=== PATIENT | male | born 1945 | race Caucasian/White ===

== ENCOUNTER 2023-04-04 20:52 | Inpatient (IN) | payer MEDICARE, OTHER, SELFPAY ==
[2023-04-04] VITALS (9 sets, daily range): BP systolic 105–134; BP diastolic 55–84; BMI 29.6; BMI 28.6
[2023-04-04 18:12] LABS: % Basophils 0.3 % (0-2); % Eosinophils 2.3 % (0-6); % Immature Granulocytes 0.2 % (0-0.5); % Lymphocytes 24.5 % (20.5-51.1); % Monocytes 9.3 % (1.7-9.3); % Neutrophils 63.4 % (42.2-75.2); Absolute Eosinophils 0.2 10^3/uL (0-0.7); Absolute Lymphocytes 2.6 10^3/uL (1.2-3.4); Absolute Neutrophils 6.6 10^3/uL (1.4-6.5); Hematocrit 37.9 % (39.0-52.0); Hemoglobin 12.8 g/dL (13.0-18.0); Mean Corp Hgb Conc. 33.8 g/dL (33.0-37.0); Mean Corpuscular Volume 88.8 fL (80.0-94.0); Mean Platelet Volume 10.4 fL (7.4-10.4); Nucleated Red Blood Cells % 0 % (-); Platelet Count 309 10^3/uL (130-400); Red Blood Cell Count 4.27 10^6/uL (4.70-6.10); Red Cell Dist. Width 14.5 % (11.5-14.5); White Blood Cell Count 10.4 10^3/uL (4.8-10.8)
[2023-04-04 18:17] LABS: ALT (SGPT) 18 U/L (0-50); AST (SGOT) 31 U/L (17-59); Albumin 4.1 g/dl (3.5-5.0); Alkaline Phosphatase 95 U/L (38-126); Blood Urea Nitrogen 25 mg/dl (9-20); Calcium 9.5 mg/dl (8.4-10.2); Carbon Dioxide 29 mmol/L (22-30); Chloride 102 mmol/L (98-107); Estimated Creatinine Clearance 53 ml/min; Glucose 81 mg/dl (70-99); Potassium 4.1 mmol/L (3.5-5.1); Sodium 137 mmol/L (135-145); Total Protein 6.7 g/dl (6.3-8.2); eGFR > 60.00
[2023-04-04 18:29] LABS: NT-proBNP 2190 pg/ml; Troponin I 0.484 ng/ml
--- NOTE | 2023-04-04 18:52 | ED.GENMED ---
History of Present Illness
General
Chief Complaint: Breathing Problem
Source: patient and family
Exam Limitations: none
Time Seen by Provider: 04/04/23 18:01
Travel History
Have you had any contact with someone who has COVID-19?: No
Do you have any symptoms of coronavirus? Fever > 100 degrees, chills, cough, shortness of breath, sore throat, loss of taste or smell, muscle aches, or headache?: Yes
Symptoms:: sob
History of Present Illness
History of Present Illness:
77-year-old male shortness of breath started about 4 AM. No chest pain no diaphoresis. Mild but persistent throughout the day.
Past History
Past History
ED Past Medical History: CAD, GERD, HTN, Hypercholesterolemia, NIDDM, UT, Psychiatric (Depression) and Other (chronic pain, diabetic peripheral neuropathy, peripheral arterial disease)
ED Past Surgical History: Cardiac (CABG 2010, aortic valve replacement 2015, cardiac stenting 2018), Tonsilectomy and Other (Xiphoid removal, right lower extremity arteriogram with bypass 2019)
Social History
Tobacco: Former smoker
Alcohol: None
Personal:
Living: with family
Family History
Family History: Other (Reviewed and noncontributory)
Review of Systems
Review of Systems
All Other Systems: Not applicable
Constitutional: Denies fever
Cardiac: Denies chest pain or syncope
Phy Exam
Physical Exam
Physical Exam:
GENERAL: Alert and oriented in no apparent distress
EYE: Orbits normal.
NECK: Supple
CARDIAC: Regular rate and rhythm without any obvious murmurs.
LUNGS: No respiratory distress at rest. Pulse ox great. However mild bibasilar Rales
ABDOMEN: Soft, without focal tenderness or distention
NEUROLOGICAL: Alert and oriented , grossly non-focal
SKIN: Warm and dry, no rash or lesion, no discoloration, skin intact.
MUSCULOSKELETAL: Minimal bilateral pitting edema
Scores
Heart Failure Risk
Heart Failure Risk Score: Yes
History of Stroke or TIA: No
History of intubation for respiratory distress: Yes
Heart rate on ED arrival >/= 110: No
SaO2 <90% on arrival on room air: No
HR >/=110 during 3min walk test (or too ill to perform test): Yes
ECG has acute ischemic changes: Yes
Urea >/=12mmol/L (BUN 33.6mg/dL): No
Serum CO2>/=35mmol/L: No
Troponin I or T elevated to UT Level (0.4mg/dL): Yes
NT-proBNP >/=5,000ng/L (5,000pg/ml): No
HF Risk Score: 8
Admission Status: VERY HIGH RISK 81.2% Consider admission to hospital
Course
Orders/Labs/Results
Orders:
Orders
04/04/23 14:30
Electrocardiogram (*1) Urgent
Reason for Study: Shortness of Breath
EKG- Treatment ONCE
04/04/23 17:59
CMP [Comprehensive Metabolic Panel] Urgent
Complete Blood Count/With Diff Urgent
NT-proBNP Urgent
Troponin I Urgent
04/04/23 18:08
CXR2 [CR Chest - 2 Views ] Urgent
Comment:
Reason For Exam: sob
04/04/23 19:12
Furosemide [Lasix] 40 mg IV NOW STA
04/04/23 19:32
Troponin I Urgent
Abnormal Lab Results
04/04/23
17:59
RBC 4.27 L 10^6/uL
(4.70-6.10)
Hgb 12.8 L g/dL
(13.0-18.0)
Hct 37.9 L %
(39.0-52.0)
Absolute Neuts (auto) 6.6 H 10^3/uL
(1.4-6.5)
Absolute Monos (auto) 1.0 H 10^3/uL
(0.1-0.6)
BUN 25 H mg/dl
(9-20)
Troponin I 0.484 H* ng/ml
04/04/23 17:59
04/04/23 17:59
Vital Signs
Initial and Last Documented VS:
Initial Vital Signs
Temp Pulse Resp BP Pulse Ox
98.0 F 91 18 106/55 100
04/04/23 14:31 04/04/23 14:31 04/04/23 14:31 04/04/23 14:31 04/04/23 14:31
Last Documented Vital Signs
Temp Pulse Resp BP Pulse Ox
98.0 F 83 22 116/62 99
04/04/23 14:31 04/04/23 19:00 04/04/23 19:00 04/04/23 19:00 04/04/23 19:00
*EKG
Interpreted by ED Provider?: Yes
Interpretation: abnormal
Comparison EKG: changes noted
Heart Rate: 76
Rate: normal
Rhythm: sinus and PVC's
[place]: normal axis
Interval: normal interval
QRS Pattern: left vent hypertrophy
Ischemia: non-specific ST changes
*[employer]ologist Interpretation
Rate: normal
Interpretation: normal
Heart Rate: 80
*Critical Care Note
Total Time (30-74mins, 75-104mins- exclusive of procedures): Not Applicable
Data Reviewed
Review of Other/Old Records Reveals: Labs, Records, Radiology Studies, Operative Reports and Discharge Summary
Update Note
Update Note:
Patient with a non-STEMI UT by troponin. EKG with some nonspecific changes. Mild CHF. Diuretics trending troponin admission. All reviewed with cardiology. To consider heparinization if troponins trend up.
ED Attending Note
-
Portions of this chart may have been created with voice recognition software.� Occasional wrong word or��sound alike� substitutions may have occurred due to the inherent limitations of voice recognition software.
Discharge Plan
Departure
Patient Disposition: Admit
Date of Disposition: 04/04/23
Time of Disposition: 19:19
Presentation/result/management discussed w/ accepting MD/DO: Cardiology
Discharge Problem:
CHF/non-STEMI UT, HISTORY CARDIAC STEnting
Prescriptions:
No Action
insulin lispro [Humalog U-100 Insulin] 100 UNIT/ML solution
15 unit SC AC
multivitamin 1 EACH tablet
1 ea PO DAILY
duloxetine 60 MG capsule,delayed release(DR/EC)
60 mg PO DAILY
oxycodone 10 MG tablet
10 mg PO QID
insulin glargine [Lantus Solostar U-100 Insulin] 300 UNITS/3 ML insulin pen
35 units SC HS
atorvastatin 80 mg tablet
80 mg PO QPM
aspirin 81 mg Tablet,Delayed Release (Dr/Ec)
81 mg PO DAILY
metformin 1,000 MG tablet
1,000 mg PO BID@0800,1700 Qty: 1 0RF
nitroglycerin 0.4 mg Tablet, Sublingual
0.4 mg sublingual [id number] PRN (Reason: chest pain) Qty: 30 0RF
furosemide 40 mg Tablet
40 mg PO DAILY Qty: 30 0RF
dapagliflozin propanediol [Farxiga] 10 mg Tablet
10 mg PO DAILY Qty: 30 0RF
losartan 50 mg Tablet
50 mg PO DAILY
clopidogrel [Plavix] 75 mg Tablet
75 mg PO DAILY
carvedilol [Coreg] 3.125 mg Tablet
3.125 mg PO BID
cimetidine 200 mg Tablet
200 mg PO HS
PreserVision AREDS 2,148 mcg-113 mg-45 mg-17.4mg Tablet
1 tab PO BID
Referrals:
Santos Weinberg MD [Family Provider] -
Interventions
Interventions:
*Risk Screen - Suicide Last Done: 04/04/23 18:00
*General Assessment Last Done: 04/04/23 18:00
*Neglect/Abuse Screening Last Done: 04/04/23 18:00
ED- Fall Risk Assessment Last Done: 04/04/23 18:00
*ED COVID-19 Vaccine History Last Done: 04/04/23 14:31
ED- Cardiac Assessment Last Done: 04/04/23 18:00
ED- Pulmonary Assessment Last Done: 04/04/23 18:00
[2023-04-04] MEDS: LASIX 40 MG IV (19:20)
--- NOTE | 2023-04-04 19:53 | HPS.HSE ---
Family Physician
-
Family Physician: Santos Weinberg
Chief Complaint
-
SOB
History of Present Illness
Patient is a 77y M with PMH significant for ASCVD, CHF / cardiomyopathy, DM-II and aortic stenosis who presents to ED complaining of SOB. Patient states that he woke this AM around 4-5 AM with SOB. He reports difficulty taking a deep breath.
He reports left sided chest pressure and chest heaviness / tightness. Patient states that his symptoms have persisted throughout the day, ultimately prompting him to present to the ED for further evaluation.
Patient denies any headache, diaphoresis, N/V, etc. He reports audible wheezing.
Patient notes that current symptoms are different form his angina with prior AL(s).
Patient does not that he was started on 3 new medications a few days ago (Coreg, Tagamet and losartan).
Patient states that he weighs himself daily at home and his weight has not changed.
He denies significant cough, mucus production, sick contacts.
Medical History
Past Medical History
Past Medical History: Reports Other
Additional Past Medical History:
ASCVD (CAD, PAD, Carotid Disease)
Aortic Stenosis
Chronic HFrEF
DM-II with Neuropathy
Hypertension
Chronic Pain Syndrome
Past Surgical History: Reports Other
Additional Past Surgical History:
CABG
PTCA with Stent (multiple)
Bio AVR
RLE Angio / Bypass
Right CEA
T&A
Social History
Tobacco: Former Smoker (Quit smoking in 1979.)
Alcohol: None
Drug: None
Family History
Family History: Not pertinent
Allergies / Home Medications
Allergies reflects when Allergies were last updated in [facility].
Home Medications with original date entered in [employer]
Allergy/Medication List:
Allergies
Allergy/AdvReac Type Severity Reaction Status Date / Time
lisinopril Allergy cough Verified 02/27/23 13:08
Home Medications
insulin lispro 100 unit/mL subcutaneous solution (Humalog U-100 Insulin) 15 unit SC AC Diabetes 09/24/15
multivitamin 1 ea PO DAILY Supplement 11/19/17
duloxetine 60 mg capsule,delayed release 60 mg PO DAILY Mental Health/Anxiety 10/12/19
insulin glargine 100 unit/mL (3 mL) subcutaneous pen (Lantus Solostar U-100 Insulin) 35 units SC HS Diabetes 10/12/19
oxycodone 10 mg tablet 10 mg PO QID 10/12/19
aspirin 81 mg tablet,delayed release 81 mg PO DAILY Blood clot prevention/tx 01/20/22
atorvastatin 80 mg tablet 80 mg PO QPM High cholesterol 01/20/22
metformin 1,000 mg tablet 1,000 mg PO BID@0800,1700 Diabetes #1 tab 05/16/22
nitroglycerin 0.4 mg sublingual tablet 0.4 mg sublingual [id number] PRN chest pain #30 tabs 10/16/22
dapagliflozin propanediol 10 mg tablet (Farxiga) 10 mg PO DAILY #30 tabs 11/30/22
furosemide 40 mg tablet 40 mg PO DAILY #30 tabs 11/30/22
carvedilol 3.125 mg tablet (Coreg) 3.125 mg PO BID 04/04/23
cimetidine 200 mg tablet 200 mg PO HS 04/04/23
clopidogrel 75 mg tablet (Plavix) 75 mg PO DAILY 04/04/23
losartan 50 mg tablet 50 mg PO DAILY 04/04/23
vitamins A,C,S-fywk-jbqhiq 2,148 mcg-113 mg-45 mg-17.4 mg tablet (PreserVision AREDS) 1 tab PO BID 04/04/23
Review of Systems
-
History Source: Patient
A 12 point ROS was completed and negative except as noted: Yes
Constitutional: Denies Fever or Chills
EENT: Denies Sore Throat
Respiratory: Reports Trouble Breathing; Denies Cough or Hemoptysis
Cardiac: Reports Chest Pain; Denies Diaphoresis, Palpitations or Syncope
Abdomen/GI: Denies Abdominal Pain, Nausea, Vomiting or Diarrhea
: Denies Dysuria or Frequency
Musculoskeletal: Denies Joint Pain or Edema
Neurological: Denies Dizzy or Headache
Psych: Denies Depression or Anxiety
Physical Exam
Vital Signs
Vital Signs
Temp Pulse Resp BP Pulse Ox
98.0 F 83 22 116/62 99
04/04/23 14:31 04/04/23 19:00 04/04/23 19:00 04/04/23 19:00 04/04/23 19:00
Physical Exam
General: Other (77y M in no acute distress.)
HEENT: Moist mucous membranes and Other (No JVD / HJR)
Respiratory: Other (Bibasilar rales about 1/3 up.)
Cardiac: S1/S2, Tachycardia and Murmur (II/ ANTHONY)
GI: Soft, Non Tender, Non Distended and Normal Bowel Sounds
Musculoskeletal: No Clubbing, No Cyanosis and No Edema
Neuro: AO x 3
Laboratory Results
-
04/04/23 17:59
04/04/23 17:59
Laboratory Results
Total Bilirubin 1.0 mg/dl (0.2-1.3) 04/04/23 17:59
AST 31 U/L (17-59) 04/04/23 17:59
ALT 18 U/L (0-50) 04/04/23 17:59
Alkaline Phosphatase 95 U/L (38-126) 04/04/23 17:59
Troponin I 0.484 ng/ml H* 04/04/23 17:59
Impression/Plan
-
A/P: Patient is a 77y M with PMH significant for ASCVD, CHF and DM-II who presents to ED complainiing of SOB since early this AM.
Acute on Chronic HFrEF
Aortic Stenosis s/p AVR
- Admit for further evaluation and treatment.
- Patient with dyspnea, elevated BNP from prior and rales evident on exam c/w pulm edema / CHF.
- No significant changes in weight at home.
- Patient is not hypoxemic nor significantly hypertensive.
- IV Lasix BID and follow weight, I/Os, clinical course.
- Monitor for any new / worsening symptoms.
- Echo done last 11/2022 with LVEF = 25-30%.
- Cardiology evaluation.
ACS
ASCVD
- Significant vasculopathic history with CABG, stents, CEA, etc.
- Patient does complain of chest pressure / heaviness today - though not similar to prior angina.
- EKG with chronic LBBB, but ST changes in anterior leads appear progressed from prior.
- Continue beta-blockade, statin, DAPT, etc.
- IV Heparin for now and follow symptoms, troponin, etc.
- Cardiology evaluation as noted above.
- Cath done last in 11/2022 with multiple areas of concern, but limited potential for additional intervention.
Benign Hypertension
- Hold newly added losartan given lower BP / need for diuresis.
- Adjust med regimen as needed for adequate control.
DM-II
- Stable. Continue basal insulin at decreased dose while NPO.
- SSI coverage as needed.
- Update A1C.
- Hold metformin acutely. Continue Farxiga.
Chronic Pain Syndrome
- Stable. Continue oxycodone, but change to PRN use.
- Continue duloxetine.
DVT Prophylaxis: On therapeutic heparin at present.
Code Status: Full
[2023-04-04] MEDS: HEPARIN 4000 UNITS IV (20:03)
[2023-04-04 20:30] LABS: Troponin I 0.434 ng/ml
[2023-04-04] MEDS: HEPARIN 25000 UNITS/250 ML IV (21:19)
[2023-04-04 21:55] LABS: Glucose - Point of Care 87 mg/dl (70-99)
[2023-04-04 22:55] LABS: Glucose - Point of Care 138 mg/dl (70-99)
[2023-04-04] MEDS: LANTUS 0.200000000000000011 UNITS SC (22:57)
[2023-04-04] MEDS: TOPROL XL 12.5 MG PO (22:57)
[2023-04-04] MEDS: ROXICODONE 10 MG PO (23:03)
[2023-04-04] MEDS: PHATP 1 UNIT PO (23:03)
[2023-04-05] VITALS (9 sets, daily range): BP systolic 108–144; BP diastolic 57–74; BMI 28.6
--- NOTE | 2023-04-05 00:48 | PTCARENOTE ---
Rec'd pt. into room 2244 from ED AAOx3, VSS, NSR on the monitor. Gait unsteady, generalized weakness assessed, fall precautions initiated. Pt. slightly MORRIS; crackles present right lung base, RA pulse ox 98%. Pt. denies CP, states sensation is
more of heaviness/SOB. Using urinal without difficulty post Lasix. Heparin gtt infusing as ordered. Medicated for bilateral lower leg/foot pain (chronic per pt.; neuropathy) with oxycodone. Pt. currently sleeping.
[2023-04-05 03:54] LABS: APTT 51.8 Sec (23.4-35.0)
[2023-04-05 04:07] LABS: Blood Urea Nitrogen 29 mg/dl (9-20); Calcium 9.7 mg/dl (8.4-10.2); Carbon Dioxide 28 mmol/L (22-30); Chloride 99 mmol/L (98-107); Estimated Creatinine Clearance 49 ml/min; Glucose 144 mg/dl (70-99); HDL Cholesterol 35 mg/dl; LDL Cholesterol, Calculated 60 mg/dl; Potassium 3.8 mmol/L (3.5-5.1); Sodium 139 mmol/L (135-145); Total Cholesterol 123 mg/dl (50-199); Triglyceride 144 mg/dl (10-149); Very Low Density Lipoprotein 28 mg/dl (0-30); eGFR 56.58
[2023-04-05 04:19] LABS: Troponin I 0.396 ng/ml
[2023-04-05 06:54] LABS: Glucose - Point of Care 121 mg/dl (70-99)
[2023-04-05] MEDS: ASPIR LOW (ENTERIC COATED) 81 MG PO (07:52)
[2023-04-05] MEDS: LASIX 40 MG IV ×2 (07:52→15:27)
[2023-04-05] MEDS: CYMBALTA DELAYED RELEASE 60 MG PO (07:52)
[2023-04-05] MEDS: PLAVIX 75 MG PO (07:52)
[2023-04-05] MEDS: TOPROL XL 12.5 MG PO (07:52)
[2023-04-05] MEDS: FARXIGA 10 MG PO (07:53)
[2023-04-05] MEDS: ROXICODONE 10 MG PO ×2 (08:03→15:21)
--- NOTE | 2023-04-05 08:04 | PTCARENOTE ---
patient c/o bilat. leg and neck pain, chronic for patient. Roxicodone po given as ordered.
--- NOTE | 2023-04-05 09:09 | W.PN.HOSP.TC ---
Addendum entered and electronically signed by Serjio Diaz DO 04/05/23 13:02:
Plan for right and left heart catheterization on Thursday. Discussed with Dr. Roland.
Original Note:
Today's Communication/Plan
-
Resume diet
N.p.o. after midnight
Assessment / Plan
Assessment / Plan
Gen-AAOx3, NAD
HEENT-NC, AT, anicteric, clear oral mm
Neck-supple
CV-reg, no M, +S1/S2
Lungs-clear B/L
Abd-soft, NT, ND
Ext-no edema
Musculoskeletal-no cyanosis, clubbing
Skin-warm and dry
Neuro-grossly non-focal
Psych-calm, cooperative
Acute on chronic heart failure reduced EF -continue IV Lasix. BNP 0. Chest x-ray with tiny bilateral pleural effusions. Moderate right hemidiaphragm elevation. Shortness of breath improving.
ACS/CAD/CABG - apparently patient stopped Brilinta on his own for unclear reasons. Plavix started March 30 by cardiology.
Continue IV heparin, cannot rule out NSTEMI. Troponin has peaked. Discussed with Dr. Roland.
Aortic stenosis/bioprosthetic AVR
Essential hypertension -stable.
DM2 without hyperglycemia -hemoglobin A1c 6.9% in February. Hold metformin for upcoming catheterization. Glucose 144 this morning. Received Lantus 20 units last night. Continue NovoLog scale, reduce to low resistance.
Hyperlipidemia -continue atorvastatin.
PAD -history of right lower extremity revascularization.
Chronic opioid dependence/chronic pain syndrome
Full code
Anticipated Discharge: > 48 hours
Subjective/Interval History
-
Date of Service: April 05, 2023
Patient seen and examined. Shortness of breath is improving. No complaints.
Objective Data
-
Labs:
Laboratory Results
04/04/23 04/05/2304/05/24
21:33 03:08 10:15
WBC Cancelled
Hgb Cancelled
Hct Cancelled
Plt Count Cancelled
APTT Cancelled 51.8 H Pending
Sodium 139
Potassium 3.8
Chloride 99
Carbon Dioxide 28
BUN 29 H
Creatinine 1.3
Glucose 144 H
Calcium 9.7
Vital Signs:
Vital Signs
Temp Pulse Resp BP Pulse Ox
97.3 F 82 20 123/74 98
04/05/23 07:55 04/05/23 07:52 04/05/23 07:55 04/05/23 07:55 04/05/23 07:55
I&O
04/04/23 04/05/23 04/06/23
06:59 06:59 06:59
Intake Total 480 / 480
Output Total 1000 / 1000
Balance -520 / -520
Review of Systems
-
History Source: Patient
All other systems: Reviewed and negative
--- NOTE | 2023-04-05 09:27 | CON.CAR ---
Addendum entered and electronically signed by Sky Roland MD 04/05/23 09:52:
Addendum for HPI:
77 y/o male with CAD s/p CABG (WEBB to LAD, Sequential SVG to OM1 --> OM2 --> RPDA) 2010, with subsequent PCI of the ostial SVG, complicated by ISR requiring repeat PCI, then PTCA 11/2022, ICM EF 25%, chronic systolic HF, severe s/p bioprosthetic
AVR 2016, HTN, HLD, PAD, IDDM admitted with SOB and chest tightness.
New symptoms over the weekend. Also with some edema. He presented to ED and was admitted with concern for heart failure and ACS.
Original Note:
Consultation
Consultation Request
Date/Time Consultation Requested: 04/04/23, 7pm
Date/Time Consultation Performed: 04/05/23, 8am
Requesting Provider: Justo
Performing Provider: Luan
Reason for Consultation: SOB, chest tightness, elevated troponin
Medical History
Past Medical History
Past Medical History: CAD, CHF (chronic systolic), HTN, Hypercholesterolemia, IDDM, [place] and Valvular Disease (aortic stenosis)
Past Surgical History: Cardiac (CABG, bio-AVR)
Social History
Tobacco: Non-Smoker
Family History
Family History: Early CAD (none)
Allergies / Home Medications
Allergy/AdvReac Type Severity Reaction Status Date / Time
lisinopril Allergy cough Verified 02/27/23 13:08
Medication Instructions Recorded Confirmed Type
insulin lispro 100 unit/mL 15 unit SC AC Diabetes 09/24/15 04/04/23 History
subcutaneous solution (Humalog
U-100 Insulin)
multivitamin 1 ea PO DAILY Supplement 11/19/17 04/04/23 History
duloxetine 60 mg capsule,delayed 60 mg PO DAILY Mental 10/12/19 04/04/23 History
release Health/Anxiety
insulin glargine 100 unit/mL (3 35 units SC HS Diabetes 10/12/19 04/04/23 History
mL) subcutaneous pen (Lantus
Solostar U-100 Insulin)
oxycodone 10 mg tablet 10 mg PO QID 10/12/19 04/04/23 History
aspirin 81 mg tablet,delayed 81 mg PO DAILY Blood clot 01/20/22 04/04/23 History
release prevention/tx
atorvastatin 80 mg tablet 80 mg PO QPM High cholesterol 01/20/22 04/04/23 History
metformin 1,000 mg tablet 1,000 mg PO BID@0800,1700 Diabetes 05/16/22 04/04/23 Rx
#1 tab
nitroglycerin 0.4 mg sublingual 0.4 mg sublingual [id number] PRN 10/16/22 04/04/23 Rx
tablet chest pain #30 tabs
dapagliflozin propanediol 10 mg 10 mg PO DAILY #30 tabs 11/30/22 04/04/23 Rx
tablet (Farxiga)
furosemide 40 mg tablet 40 mg PO DAILY #30 tabs 11/30/22 04/04/23 Rx
carvedilol 3.125 mg tablet (Coreg) 3.125 mg PO BID Heart 04/04/23 04/04/23 History
Disease/Condition
cimetidine 200 mg tablet 200 mg PO HS Gastrointestinal Issue 04/04/23 04/04/23 History
clopidogrel 75 mg tablet (Plavix) 75 mg PO DAILY Blood Clot 04/04/23 04/04/23 History
Prevention/Tx
losartan 50 mg tablet 50 mg PO DAILY 04/04/23 04/04/23 History
vitamins A,C,P-ipat-zvknmu 2,148 1 tab PO BID 04/04/23 04/04/23 History
mcg-113 mg-45 mg-17.4 mg tablet
(PreserVision AREDS)
Review of Systems
-
History Source: Patient
Respiratory: Trouble Breathing
Cardiac: Chest Pain
Physical Exam
Vital Signs
Temp Pulse Resp BP Pulse Ox
97.3 F 82 20 123/74 98
04/05/23 07:55 04/05/23 07:52 04/05/23 07:55 04/05/23 07:55 04/05/23 07:55
Lab Results
04/04/23 21:33
04/05/23 03:08
Troponin I Cancelled 04/05/23 09:33
Qoq-W-Omoxvwjpalt Pept 2190 pg/ml 04/04/23 17:59
Physical Exam
General: Well Developed, Well Nourished and No Apparent Distress
HEENT: Normocephalic and Anicteric
Respiratory: Clear and Non Labored Respirations
Cardiac: S1/S2 (normal), Regular Rhythm, Murmur (none) and Peripheral Edema (1+ LE edema)
GI: Soft, Non Tender and Non Distended
Musculoskeletal: No Clubbing, No Cyanosis and Edema (1+ LE)
Skin: Warm and Dry
Neuro: AO x 3
Psych: Calm
Impression / Plan
-
77 y/o male with CAD s/p CABG (WEBB to LAD, Sequential SVG to OM1 --> OM2 --> RPDA) 2010, with subsequent PCI of the ostial SVG, complicated by ISR requiring repeat PCI, then PTCA 11/2022, ICM EF 25%, chronic systolic HF, severe s/p bioprosthetic
AVR 2016, HTN, HLD, PAD, IDDM admitted with SOB and chest tightness.
# SOB/chest tightness
-seems to be acute HF
-also, with recent prolonged period off DAPT, concern for NSTEMI
#CAD/NSTEMI
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
-Prior PCI of ostial SVG (Xience Alaina 4.0 x 15 MORRIS), 2018, then again 04/2022
-s/p aggressive IVUS guided PTCA (4.0 x 15 NC balloon to 16 OSIRIS) 11/2022
-cont ASA/Plavix
-cont heparin drip
-cath Thursday
# Acute on chronic systolic HF, severe, requiring close monitoring of labs and tele
-cont lasix 40mg bid
#ICM EF 25-30% with acute on chronic systolic HF
-did not tolerate entresto due to hypotension per outpatient notes
-cont Toprol XL 25mg bid, losartan 25mg daily, farxiga 10mg daily
-echo this admission
#Severe aortic valve stenosis s/P #25 Bioprosthetic SAVR, 09/25/2015.
-echo
#HTN
-monitor on above meds
#HLD
-check lipids
-cont Atorvastatin 80mg
#IDDM
-Chronic, stable.
-Management per primary team.
-Continue dapagliflozin (more for HF).
Data Reviewed
-
EKG: Tracing Personally Visualized and interpreted (NSR, LBBB, biphasic anterior T waves)
Medical Tests (Nuc Med, Echo etc): Report Reviewed by me (cath and echo summarized in note)
Labs: Labs Reviewed by me
Old Records: Reviewed
[2023-04-05] MEDS: COZAAR 25 MG PO (10:19)
[2023-04-05 11:47] LABS: Glucose - Point of Care 234 mg/dl (70-99)
[2023-04-05] MEDS: NOVOLOG FLEXPEN-LOW RESISTANCE SC ×2 (11:53→17:04)
[2023-04-05 12:08] LABS: APTT 70.9 Sec (23.4-35.0)
[2023-04-05] MEDS: NOVOLOG FLEXPEN 15 UNITS SC ×2 (12:25→17:05)
[2023-04-05] MEDS: NOVOLOG FLEXPEN-LOW RESISTANCE 2 UNITS SC (12:25)
[2023-04-05] MEDS: FLUSH (NSS) 1 FLUSH IV (15:28)
--- NOTE | 2023-04-05 15:47 | PTCARENOTE ---
patient requested pain medications for bilat. legs and back, roxicodone po given as ordered.
[2023-04-05] MEDS: HEPARIN 25000 UNITS/250 ML IV (16:49)
[2023-04-05 17:04] LABS: Glucose - Point of Care 142 mg/dl (70-99)
[2023-04-05] MEDS: LIPITOR 80 MG PO (17:07)
[2023-04-05 19:05] LABS: APTT 83.6 Sec (23.4-35.0)
[2023-04-05] MEDS: TOPROL XL 25 MG PO (19:48)
[2023-04-05 22:20] LABS: Glucose - Point of Care 125 mg/dl (70-99)
[2023-04-05] MEDS: PEPCID 20 MG PO (22:22)
[2023-04-05] MEDS: LANTUS 0.200000000000000011 UNITS SC (22:22)
[2023-04-06] VITALS (12 sets, daily range): BP systolic 95–117; BP diastolic 45–71; BMI 28.1
[2023-04-06 02:39] LABS: Hematocrit 38.2 % (39.0-52.0); Mean Corpuscular Hgb 30.4 pg (27.0-31.0); Mean Corpuscular Volume 89.5 fL (80.0-94.0); Platelet Count 287 10^3/uL (130-400); Red Blood Cell Count 4.27 10^6/uL (4.70-6.10); Red Cell Dist. Width 14.2 % (11.5-14.5); White Blood Cell Count 9.2 10^3/uL (4.8-10.8)
[2023-04-06 02:58] LABS: Blood Urea Nitrogen 28 mg/dl (9-20); Calcium 9.5 mg/dl (8.4-10.2); Carbon Dioxide 29 mmol/L (22-30); Chloride 100 mmol/L (98-107); Estimated Creatinine Clearance 58 ml/min; Glucose 101 mg/dl (70-99); Sodium 138 mmol/L (135-145); eGFR > 60.00
[2023-04-06 03:03] LABS: Potassium 3.7 mmol/L (3.5-5.1)
--- NOTE | 2023-04-06 03:26 | PTCARENOTE ---
No complaints chest pain/discomfort this shift, NSR with occ. PAC's on the monitor. Pt. states his breathing feels better than day of admit but still has some exertional dyspnea. Pulse ox 97-99% on 2L. Pt. for cardiac cath in AM, plan of care
discussed, understanding verbalized. Pt. sleeping.
[2023-04-06 08:00] LABS: Glucose - Point of Care 105 mg/dl (70-99)
[2023-04-06] MEDS: TOPROL XL 25 MG PO ×2 (08:13→20:02)
[2023-04-06] MEDS: NOVOLOG FLEXPEN SC ×2 (08:13→12:54)
[2023-04-06] MEDS: FARXIGA 10 MG PO (08:13)
[2023-04-06] MEDS: NOVOLOG FLEXPEN-LOW RESISTANCE SC ×3 (08:13→17:38)
[2023-04-06] MEDS: PLAVIX 75 MG PO (08:14)
[2023-04-06] MEDS: CYMBALTA DELAYED RELEASE 60 MG PO (08:14)
[2023-04-06] MEDS: FLUSH (NSS) 1 FLUSH IV (08:14)
[2023-04-06] MEDS: LASIX 40 MG IV ×2 (08:14→16:04)
[2023-04-06] MEDS: ASPIR LOW (ENTERIC COATED) 81 MG PO (08:14)
[2023-04-06] MEDS: COZAAR 25 MG PO (08:14)
[2023-04-06] MEDS: ROXICODONE 10 MG PO ×2 (08:19→18:31)
--- NOTE | 2023-04-06 08:19 | PTCARENOTE ---
Patient c/o bilat leg and back pain, chronic, Roxicodone po given as ordered.
--- NOTE | 2023-04-06 10:25 | W.PN.CD ---
Today's Communication / Plan
-
Cardiac catheterization for clarification of coronary anatomy and evaluation of filling pressures.
Adjust diuretics based on cath findings.
Impression / Plan
-
Impression/Plan: 77 y/o male with CAD s/p CABG (WEBB to LAD, Sequential SVG to OM1 --> OM2 --> RPDA) 2010, with subsequent PCI of the ostial SVG, complicated by ISR requiring repeat PCI, then PTCA 11/2022, ICM (LVEF 25%), chronic HFrEF, severe
s/p bioprosthetic AVR 2015, HTN, HLD, PAD, IDDM admitted with SOB and chest tightness.
#SOB/chest tightness
-Seems to be acute on chronic HFrEF - severe, requiring close monitoring of labs and telemetry.
-With recent prolonged period off DAPT, concern for NSTEMI.
-Continue diuresis with furosemide 40 mg IV BID.
#CAD/NSTEMI
-Severe CAD, PONY ROLL FINISHER of both modoc vessels, s/p 4V CABG (patent WEBB to LAD, patent sequential SVG to OM1, OM2 and RPDA), circa 2010.
-Prior PCI of ostial SVG (Xience Alaina 4.0 x 15 MORRIS), 2018, then again 04/2022.
-s/p aggressive IVUS guided PTCA (4.0 x 15 NC balloon to 16 OSIRIS) 11/2022.
-Continue DAPT.
-Repeat right/left heart catheterization to assess coronary anatomy and filling pressures.
#ICM
-LVEF 25-30%.
-Did not tolerate sacubitril/valsartan due to hypotension per outpatient notes.
-Continue metoprolol succinate, losartan and dapagliflozin.
#Severe aortic valve stenosis
-S/P #25 Bioprosthetic SAVR, 09/25/2015, functioning normally as of 11/26/2022.
#HTN
-Chronic, stable.
-Monitor with adjustment of GDMT.
#HLD
-Chronic, stable.
-Continue atorvastatin 80mg.
#IDDM
-Chronic, stable.
-Management per primary team.
-Continue dapagliflozin (more for HF).
-The patient would ultimately benefit from GLP-1 agonist for CAD + DM.
Subjective/Interval History:
Receiving ATC opioids for his back/leg pain.
SaO2 100% on 2LNC.
Weight is down 4.8 kg.
DATA:
CXR, 04/04/2023:
IMPRESSION:
Tiny bilateral pleural effusions. New.
Moderate elevation of the right hemidiaphragm. Progressed.
Cardiac Catheterization/PTCA, 11/26/2022:
CONCLUSIONS
1.� Right dominant circulation with chronic total occlusion of both modoc vessels, status post coronary artery bypass grafting (patent WEBB to LAD, patent sequential SVG to OM1 to OM 2 to RPDA) with prior PCI x2 to the ostium of the sequential vein
graft, now with an 80% ostial lesion and a 90% ISR lesion in the mid stent, status post successful IVUS guided PTCA (4.0 NC balloon to 16 osiris) with reduction in both stenoses to <10%, maintaining RACHEL-3 flow.� I suspect that the second layer of
stent traversed the stent struts of the first stent leading to an ostial deformation.� In the absence of calcium, this would explain the nondilatable area of stent seen on IVUS.
2.� Severe left ventricular dysfunction.� LV ejection fraction estimated at 20%.
3.� Status post prior bioprosthetic aortic valve replacement with mild stenosis (mean gradient 16 mmHg).
TTE, 11/26/2022:
CONCLUSIONS
�Biventricular dilation with severely reduces left ventricular systolic
�function.
�Left ventricular ejection fraction is 25- 30% by visual assessment.
�Stage I diastolic dysfunction suggestive of abnormal relaxation.
�Well-seated, normally functioning bioprosthetic aortic valve.
�Compared to previous echo 07/23/2022, the severe systolic dysfunction is new.
Physical Exam
Vital Signs/Labs
Vital Signs
Temp Pulse Resp BP Pulse Ox
36.3 C 66 20 107/71 100
04/06/23 07:55 04/06/23 10:00 04/06/23 07:55 04/06/23 08:14 04/06/23 08:30
04/04/23 04/05/23 04/06/23
11:59 11:59 11:59
Actual Weight 90.5 kg 88.9 kg
04/06/23 02:11
04/06/23 02:11
APTT 81.0 Sec (23.4-35.0) H 04/06/23 02:11
Triglycerides 144 mg/dl (10-149) 04/05/23 03:08
LDL Cholesterol, Calc 60 mg/dl 04/05/23 03:08
VLDL Cholesterol, Calc 28 mg/dl (0-30) 04/05/23 03:08
HDL Cholesterol 35 mg/dl 04/05/23 03:08
04/04/23
17:59
Atu-B-Pulmcvobung Pept 2190
LAB Results
04/04/23 04/04/23 04/04/23
17:59 20:00 21:33
Troponin I 0.484 H* 0.434 H* Cancelled
04/05/23 04/05/23
03:08 09:33
Troponin I 0.396 H* Cancelled
Physical Exam
Constitutional: No acute distress and Comfortable
EENT: Anicteric and Moist mucous membranes
Cardiovascular: Rhythm & rate is regular, Pedal edema is absent, JVD pressure is normal, S1S2 is normal and Murmur/rub/gallop absent
Respiratory: Respiratory effort normal, Lungs clear to auscul., Wheeze Absent, Crackles Absent and Rhonchi Absent
GI: Soft, Distention absent, Flat, Non tender and Normal bowel sounds
Neuro/Psych: AO x 3
Data Reviewed
-
Date of Service: April 06, 2023
Medical Decision Making: Reviewed Test Results, Independent Historian Assessment, Test Interpretation and Review of Case with other Provider
EKG: Tracing Personally Visualized and interpreted and Report Reviewed by me
Echo: Tracing Personally Visualized and interpreted and Report Reviewed by me
X-Ray/CT/US/MRI/NUC/PET: Image Personally Visualized and interpreted and Report Reviewed by me
Medical Tests (PFT, Pathology etc): Image Personally Visualized and interpreted and Report Reviewed by me
Labs: Labs Reviewed by me
--- NOTE | 2023-04-06 12:06 | W.PN.HOSP.TC ---
Today's Communication/Plan
-
Await cath
Assessment / Plan
Assessment / Plan
Gen-AAOx3, NAD
HEENT-NC, AT, anicteric, clear oral mm
Neck-supple
CV-reg, no M, +S1/S2
Lungs-clear B/L
Abd-soft, NT, ND
Ext-no edema
Musculoskeletal-no cyanosis, clubbing
Skin-warm and dry
Neuro-grossly non-focal
Psych-calm, cooperative
Acute on chronic heart failure reduced EF -continue IV Lasix. BNP 2189. Chest x-ray with tiny bilateral pleural effusions. Moderate right hemidiaphragm elevation. Shortness of breath improving.
ACS/CAD/CABG - apparently patient stopped Brilinta on his own for unclear reasons. Plavix started March 30 by cardiology.
Continue IV heparin, cannot rule out NSTEMI. Troponin has peaked. Plan for cardiac catheterization today.
Aortic stenosis/bioprosthetic AVR
Essential hypertension -stable.
DM2 without hyperglycemia -hemoglobin A1c 6.9% in February. Hold metformin for upcoming catheterization. Glucose 105 this morning. Received Lantus 20 units last night. Continue NovoLog scale, reduce to low resistance.
Hyperlipidemia -continue atorvastatin.
PAD -history of right lower extremity revascularization.
Chronic opioid dependence/chronic pain syndrome
Full code
d/w with daughter at bedside
Anticipated Discharge: Within 24 hours
Subjective/Interval History
-
Date of Service: April 06, 2023
denies cp or sob
states breathing has improved.
Objective Data
-
Labs:
Laboratory Results
04/06/23
02:11
WBC 9.2
Hgb 13.0
Hct 38.2 L
Plt Count 287
APTT 81.0 H
Sodium 138
Potassium 3.7
Chloride 100
Carbon Dioxide 29
BUN 28 H
Creatinine 1.1
Glucose 101 H
Calcium 9.5
Vital Signs:
Vital Signs
Temp Pulse Resp BP Pulse Ox
97.4 F 66 20 107/71 100
04/06/23 07:55 04/06/23 10:00 04/06/23 07:55 04/06/23 08:14 04/06/23 08:30
I&O
04/05/23 04/06/23 04/07/23
06:59 06:59 06:59
Intake Total 480 / 480
Output Total 1000 / 1000 1340 / 1340 500 / 500
Balance -520 / -520 -1327 / -1327 -500 / -500
[2023-04-06 12:49] LABS: Glucose - Point of Care 122 mg/dl (70-99)
[2023-04-06] MEDS: HEPARIN 25000 UNITS/250 ML IV (12:52)
--- NOTE | 2023-04-06 14:14 | CM ---
spoke to pt in room, he is prev indep, lives with his in a 2 story home with 5 steps to enter. he has a cane at home he uses, he denies any dc planning needs. plan is for dc to home when medically stable.
--- NOTE | 2023-04-06 15:05 | ITS.CL.CA ---
Center Manager - Carotid Angiography
Carotid Angiography
Procedure Report:
CARDIAC CATHETERIZATION REPORT
Date of Procedure: 04/06/2023
Referring: Sky Roland M.D., Ph.D.
Indication: Known coronary artery disease, chest pain, abnormal troponin.
PROCEDURE:
1. Right heart catheterization.
2. Left heart catheterization.
3. Coronary angiography.
4. Aortic valve interrogation.
5. Bypass angiography.
ACCESS:
6 [place]z right common femoral artery using a modified Seldinger technique with a micropuncture kit under ultrasound guidance.
5 [place] right common femoral vein using a modified Seldinger technique with a micropuncture kit under ultrasound guidance.
CATHETERS:
1. 5 [place] balloon wedge.
2. 5 [place] JL 4.
3. 5 [place] JR4.
4. 5 [place] ELVIS.
HEMODYNAMIC DATA
Weight (kg): 88.5
AO (s/d/x mmHg): 109/49/70
LV (s/x mmHg): 137/20
PCWP (a/v/x mmHg):
PA (s/d/x mmHg): 39/
RV (s/x mmHg): 44/9
RA (a/v/x mmHg):
SVC SvO2 (%): 64.3
PA SvO2 (%): 57.3
SaO2 (%): 96.3
Hbg (g/dL): 12.9
CO (L/min): 3.44
CI (L/min/m2): 1.66
TPG (mmHg): 7
PVR ([place] Units): 2.03
SVR (dynes*seconds*cm^-5): 1419
AVO2 Diff (Volume %): 6.84
AV gradient (x, mmHg): 16.25
AV area (cm2): 0.93
LEFT VENTRICULOGRAPHY: Not performed. A #25 bioprosthetic surgical aortic valve is observed.
CORONARY ANGIOGRAPHY
Dominance:� Right.
Left Main:� Chronically totally occluded.
LAD:� Normal size vessel giving rise to 1 significant diagonal.� The vessel is chronically totally occluded at its proximal margin and is supplied by patent WEBB graft.
Ramus: Congenitally absent.
Circumflex:� Normal size, nondominant vessel giving rise to 2 obtuse marginals.� The vessel is diffusely diseased and occluded at its proximal origin.� The obtuse marginals are supplied by a patent sequential vein graft.
RCA:� Normal size, dominant vessel.� The vessel is chronically totally occluded at its origin all the way down to the distal vessel.� The RPDA is supplied by a patent sequential vein graft.
BYPASS GRAFT ANGIOGRAPHY
WEBB to LAD: Normal size graft with end-to-side anastomosis to the mid LAD.� There is no evidence of stenosis or degeneration.
SVG to OM1 to OM 2 to RPDA: Large size graft with namk-wj-qkkj anastomosis with OM1, shia-ob-tbfn anastomosis to OM 2 and end to side anastomosis with the RPDA.� There are stents in the ostium of the graft. There is a 20-30% in-stent restenosis
lesion.
INTERVENTIONS
None.
Closure Device: Manual pressure for the femoral arterial and venous access sites.
Radiation dose (mGy): 791.59
DAP (cm2.Gy): 58.8166
Fluoroscopy time (minutes): 7.5
Sedation time (minutes): 16
CONCLUSIONS:
1. Right dominant circulation with chronic total occlusion of the entire qaw[place]angin circulation status post bypass (patent WEBB to LAD, patent sequential SVG to OM1 to OM 2 to RPDA) with moderate to severe diffuse disease within the circumflex and RCA
vessels, prior PCI to the ostium of the saphenous vein graft requiring previous repeat PCI and angioplasty, now with 20-30% ISR lesion.
2. Well-seated #25 bioprosthetic surgical aortic valve with a mean gradient of 16.25 mmHg, aortic valve area of 0.93 cm�. Gradient suggest mild stenosis while valve area is severe. This is suggestive of low-flow, low gradient aortic valve
stenosis versus pseudo stenosis. Gradient is similar to prior cardiac catheterization of 11/26/2022.
3. Moderately elevated filling pressures (LVEDP = 20 mmHg, PCWP = 20 mmHg at 88.5 kg), likely appropriate to mildly elevated given degree of LV dysfunction.
RECOMMENDATIONS:
1. Expectant management after cardiac catheterization via right common femoral approach.
2. Limited weight bearing for one week.
3. Continue guideline directed medical therapy as hemodynamics tolerate.
4. The patient's filling pressures are moderately elevated, though they may be near normal given the degree of the patient's systolic dysfunction.
Copy to: Sky Roland M.D., Ph.D., Santos Weinberg M.D., Girish Salas M.D.
Nick Perez DO, FACC, FACP
--- NOTE | 2023-04-06 15:24 | PTCARENOTE ---
patient back from lab manager, right fem Arterial and venous access, sheaths pulled in lab manager, manual pressure held , dsg. D/I, distal pulse palpable. please see post angiography documentation. instructed patient that he needs to lie flat for 3
hours, verbalizes understanding. IVF NSS @ 133cc/hr for 3 hours as ordered. family at bedside, call wilcox within reach.
--- NOTE | 2023-04-06 16:51 | PTCARENOTE ---
Echo completed at bedside.
--- NOTE | 2023-04-06 16:58 | CARDSERVLU ---
Echocardiogram with Lumason completed after protocol screening completed. Allergies verified.
Patent IV site: ____RAC_
IV site flushed with 0.9% NaCl pre and post administration.
Diluted bolus method utilized to enhance visualization of ventricular kwong.
Total volume given: __5__ mL
Patient tolerated all procedures well without complications.
[2023-04-06] MEDS: LIPITOR 80 MG PO (17:32)
[2023-04-06 17:37] LABS: Glucose - Point of Care 94 mg/dl (70-99)
[2023-04-06] MEDS: NOVOLOG FLEXPEN 15 UNITS SC (17:37)
--- NOTE | 2023-04-06 18:34 | PTCARENOTE ---
patient requested Roxicodone for chronic back and bilat. leg pain, given as ordered.
[2023-04-06] MEDS: LANTUS 0.200000000000000011 UNITS SC (22:24)
[2023-04-06] MEDS: PEPCID 20 MG PO (22:24)
[2023-04-06 22:25] LABS: Glucose - Point of Care 160 mg/dl (70-99)
[2023-04-07] MEDS: ROXICODONE 10 MG PO ×2 (00:46→08:03)
--- NOTE | 2023-04-07 02:08 | PTCARENOTE ---
Right groin dressing C/D/I, and b/l pedal pulses weak. Patient reports hx of neuropathy in bilateral legs and feet. Denies any chest pain, but does c/o neuropathy discomfort. Roxicodone administered--see MAR for further details. Tele monitor shows
SR-Sinus bradycardia w/ BBBC, HR in the 50-70s at rest. Call wilcox in reach.
[2023-04-07 03:47] VITALS: BMI 27.7
[2023-04-07 04:09] VITALS: BP 107/54
[2023-04-07 04:34] LABS: Hematocrit 38.1 % (39.0-52.0); Hemoglobin 12.5 g/dL (13.0-18.0); Mean Corp Hgb Conc. 32.8 g/dL (33.0-37.0); Mean Corpuscular Hgb 29.6 pg (27.0-31.0); Mean Corpuscular Volume 90.3 fL (80.0-94.0); Mean Platelet Volume 10.4 fL (7.4-10.4); Platelet Count 271 10^3/uL (130-400); Red Blood Cell Count 4.22 10^6/uL (4.70-6.10); Red Cell Dist. Width 14.3 % (11.5-14.5); White Blood Cell Count 9.2 10^3/uL (4.8-10.8)
[2023-04-07 04:59] LABS: Blood Urea Nitrogen 29 mg/dl (9-20); Calcium 9.3 mg/dl (8.4-10.2); Carbon Dioxide 30 mmol/L (22-30); Chloride 96 mmol/L (98-107); Estimated Creatinine Clearance 49 ml/min; Glucose 102 mg/dl (70-99); Potassium 3.7 mmol/L (3.5-5.1); Sodium 136 mmol/L (135-145); eGFR 56.58
[2023-04-07 07:10] VITALS: BP 101/40
[2023-04-07 07:14] LABS: Glucose - Point of Care 98 mg/dl (70-99)
[2023-04-07] MEDS: ASPIR LOW (ENTERIC COATED) 81 MG PO (07:38)
[2023-04-07] MEDS: COZAAR 25 MG PO (07:39)
[2023-04-07] MEDS: TOPROL XL 25 MG PO (07:39)
[2023-04-07] MEDS: FARXIGA 10 MG PO (07:39)
[2023-04-07] MEDS: PLAVIX 75 MG PO (07:39)
[2023-04-07] MEDS: CYMBALTA DELAYED RELEASE 60 MG PO (07:40)
[2023-04-07] MEDS: NOVOLOG FLEXPEN-LOW RESISTANCE SC ×2 (07:43→11:35)
[2023-04-07 08:00] VITALS: BMI 27.7
[2023-04-07] MEDS: NOVOLOG FLEXPEN 15 UNITS SC ×2 (08:07→11:34)
--- NOTE | 2023-04-07 08:29 | W.PN.CD ---
Today's Communication / Plan
-
OK for discharge
I will add MRA. Aldactone 12.5 a day to begin tomorrow 04/08/2023
Will need BMP in 2 and 4 weeks
Consider move from ARB to ARNI
Consider BiV pacing with or without ICD
Please call with questions
Impression / Plan
-
Impression/Plan: 77 y/o male with CAD s/p CABG (WEBB to LAD, Sequential SVG to OM1 --> OM2 --> RPDA) 2010, with subsequent PCI of the ostial SVG, complicated by ISR requiring repeat PCI, then PTCA 11/2022, ICM (LVEF 25%), chronic HFrEF, severe
s/p bioprosthetic AVR 2015, HTN, HLD, PAD, IDDM admitted with SOB and chest tightness.
Improved acute on chronic HFrEF, now compensated. Continue med rx. LVEF now 15-20%
Cath favors troponin elevation from heart failure
CAD
- Cath yesterday favorable coronary anatomy, no culprit
- Med Rx. DAPT for at least 1 year if tolerated
Good function of#25 Bioprosthetic SAVR, as of 11/26/2022. Was placed for severe
HTN, well controlled
Mixed hyperlipidemia, goal LDL less than 55
DM, type II, on insulin with oral meds as well
Subjective/Interval History:
Feels well
Physical Exam
Vital Signs/Labs
Vital Signs
Temp Pulse Resp BP Pulse Ox
98 F 69 12 101/40 98
04/07/23 07:08 04/07/23 07:10 04/07/23 07:08 04/07/23 07:10 04/07/23 07:08
04/06/23 04/07/23 04/08/23
06:59 06:59 06:59
Actual Weight 88.9 kg 87.7 kg
04/07/23 04:14
02/13/24 04:14
APTT 81.0 Sec (23.4-35.0) H 04/06/23 02:11
Triglycerides 144 mg/dl (10-149) 04/05/23 03:08
LDL Cholesterol, Calc 60 mg/dl 04/05/23 03:08
VLDL Cholesterol, Calc 28 mg/dl (0-30) 04/05/23 03:08
HDL Cholesterol 35 mg/dl 04/05/23 03:08
04/04/23
17:59
Qaz-E-Wmdgpdnykxc Pept 2190
LAB Results
04/04/23 04/04/23 04/04/23
17:59 20:00 21:33
Troponin I 0.484 H* 0.434 H* Cancelled
04/05/23 04/05/23
03:08 09:33
Troponin I 0.396 H* Cancelled
Physical Exam
Constitutional: No acute distress
EENT: Anicteric
Cardiovascular: Rhythm & rate is regular and S1S2 is normal
Respiratory: Respiratory effort normal and Lungs clear to auscul.
GI: Soft and Distention absent
Neuro/Psych: AO x 3
Data Reviewed
-
Date of Service: April 07, 2023
[2023-04-07] MEDS: LASIX IV (10:23)
--- NOTE | 2023-04-07 10:30 | W.PN.HOSP.TC ---
Today's Communication/Plan
-
GDMT
Biv Pacing/ICD as outpatient per cards
BMP
home
Assessment / Plan
Assessment / Plan
Gen-AAOx3, NAD
HEENT-NC, AT, anicteric, clear oral mm
Neck-supple
CV-reg, no M, +S1/S2
Lungs-clear B/L
Abd-soft, NT, ND
Ext-no edema
Musculoskeletal-no cyanosis, clubbing
Skin-warm and dry
Neuro-grossly non-focal
Psych-calm, cooperative
Acute on chronic heart failure reduced EF -continue IV Lasix. BNP 0. Chest x-ray with tiny bilateral pleural effusions. Moderate right hemidiaphragm elevation. Shortness of breath resolved. ECHO with new reduced EF 15-20%. Per cards plan for
BiV pacing with or w/o ICD as outpatient. Add aldactone. restart home dose of lasix.
ACS/CAD/CABG - apparently patient stopped Brilinta on his own for unclear reasons. Plavix started March 30 by cardiology.
s/p IV heparin, cannot rule out NSTEMI. Troponin has peaked. s/p cardiac catherization no intervention required.
Aortic stenosis/bioprosthetic AVR
Essential hypertension -stable.
DM2 without hyperglycemia -hemoglobin A1c 6.9% in February. Hold metformin for 72h post cath. Glucose 98 this morning. Received reduced dose of Lantus 20 units. Continue NovoLog scale, reduce to low resistance.
Hyperlipidemia -continue atorvastatin. LDL 60.
PAD -history of right lower extremity revascularization.
Chronic opioid dependence/chronic pain syndrome
Full code
d/w with cardiology. okay to dc.
More than 30 minutes spent in discharge including
Final examination of the patient
Summarizing hospital stay
Instructions for continuing care to all relevant caregivers
Preparation of discharge records, prescriptions, and referral forms
Total time spent (in minutes): 45
Anticipated Discharge: Today
Subjective/Interval History
-
Date of Service: April 07, 2023
walking around in room
no chest pain or sob
no groin pain
states feeling alot better
Objective Data
-
Labs:
Laboratory Results
04/07/23
04:14
WBC 9.2
Hgb 12.5 L
Hct 38.1 L
Plt Count 271
Sodium 136
Potassium 3.7
Chloride 96 L
Carbon Dioxide 30
BUN 29 H
Creatinine 1.3
Glucose 102 H
Calcium 9.3
Vital Signs:
Vital Signs
Temp Pulse Resp BP Pulse Ox
98 F 69 12 101/40 98
04/07/23 07:08 04/07/23 07:10 04/07/23 07:08 04/07/23 07:10 04/07/23 07:08
I&O
04/06/23 04/07/23 04/08/23
06:59 06:59 06:59
Intake Total 571 / 571
Output Total 1340 / 1340 2099 / 2099
Balance -1327 / -1327 -1529 / -1529
--- NOTE | 2023-04-07 10:42 | W.DCSUMMARY ---
Discharge Summary
Discharge Data
Date of Admission: 04/04/23
Date of Discharge: 04/07/23
-
Pending Results: No
Hospital Course
77-year-old male past medical history of CAD status post CABG, aortic stenosis status post bioprosthetic aortic valve placement, hypertension, diabetes mellitus, hyperlipidemia, PAD, chronic opioid dependent, chronic pain syndrome, chronic HFrEF who
was presented with shortness of breath and chest discomfort. There was concern for NSTEMI and patient was started on IV heparin drip. Patient looks hypervolemic and was started on IV Lasix. Patient with significant improvement in chest pain or
shortness of breath. Patient was eval by cardiology and underwent cardiac catheterization and no intervention was required. Postcardiac catheterization IV Lasix was discontinued and started home regimen of p.o. Lasix. Aldactone was also added.
Patient need repeat BMP as outpatient. Carvedilol was discontinued and started metoprolol. Patient was ambulating in the room without any difficulty. Patient will be discharged home with recommendation to follow-up with PCP.
Discharge Plan
-
Patient Disposition: Home (Routine Discharge)
Discharge Diagnosis/Procedures: Acute on chronic systolic and diastolic heart failure exacerbation
Elevated troponin likely secondary to severe heart failure exacerbation
cardiac catheterization
Condition: Fair
Diet: 2 Gram Sodium, Diabetic, Carb Controlled and Restrict fluids to 48 oz
Activity: With assistance and As tolerated
Additional Activity: Limited weight bearing for one week.
Driving Restrictions: As prior to admission
Blood Work: BMP in two weeks with primary doctor.
Specialty Instructions: Weigh Daily- Call MD for wt gain/loss 3 lbs overnight/5 lbs in 1 week
Instructions: *CBC Heart Failure Instructions
Stand Alone Forms: DC Instructions- Cath/EP Lab
Referrals:
Blessing Lopez CRNP [Specified Professional Personl] - 04/17/23 10:00 am
Santos Weinberg MD [Family Provider] - in less than 1 week
Prescriptions:
New
spironolactone 25 mg Tablet
12.5 mg PO DAILY 30 Days Qty: 15 0RF
famotidine 20 mg Tablet
20 mg PO DAILY 30 Days Qty: 30 0RF
losartan 25 mg Tablet
25 mg PO DAILY 30 Days Qty: 30 0RF
metoprolol succinate 25 mg Tablet Extended Release 24 Hr
25 mg PO BID 30 Days Qty: 60 0RF
Continued
insulin lispro [Humalog U-100 Insulin] 100 UNIT/ML solution
15 unit SC AC
multivitamin 1 EACH tablet
1 ea PO DAILY
duloxetine 60 MG capsule,delayed release(DR/EC)
60 mg PO DAILY
atorvastatin 80 mg tablet
80 mg PO QPM
aspirin 81 mg Tablet,Delayed Release (Dr/Ec)
81 mg PO DAILY
nitroglycerin 0.4 mg Tablet, Sublingual
0.4 mg sublingual [id number] [id number] (Reason: chest pain) Qty: 30 0RF
furosemide 40 mg Tablet
40 mg PO DAILY Qty: 30 0RF
clopidogrel [Plavix] 75 mg Tablet
75 mg PO DAILY
PreserVision AREDS 2,148 mcg-113 mg-45 mg-17.4mg Tablet
1 tab PO BID
oxycodone 10 MG tablet
10 mg PO QID Qty: 0 0RF
dapagliflozin propanediol [Farxiga] 10 mg Tablet
10 mg PO DAILY Qty: 30 0RF
Changed
insulin glargine [Lantus Solostar U-100 Insulin] 300 UNITS/3 ML insulin pen
20 unit SC HS Qty: 0 0RF
Held
metformin 1,000 MG tablet
1,000 mg PO BID@0800,1700 Qty: 1 0RF
Hold Instructions: Resume on 04/10/23.
Discontinued
losartan 50 mg Tablet
50 mg PO DAILY
carvedilol [Coreg] 3.125 mg Tablet
3.125 mg PO BID
cimetidine 200 mg Tablet
200 mg PO HS
Discharge Orders:
Discharge Patient (As Directed); Ordered 04/07/23
Ordered By: Aj Flores
Care Plan Goals
Care Plan Goals:
Problem: Readiness for enhanced knowledge related to diagnosis and treatment plan
Goal: Understand your diagnosis and treatment plan needs, including medications if applicable.
Instructions: Know your diagnosis, underlying causes and treatment plan options, including medications if applicable. Consult with your health care team to learn about your diagnosis and treatment plan, including medications if applicable.
Discharge Date and Time
Discharge Date/Time: 04/07/23 13:38
[2023-04-07 11:24] VITALS: BP 104/53
[2023-04-07 11:28] LABS: Glucose - Point of Care 109 mg/dl (70-99)
[2023-04-07] MEDS: LASIX 40 MG PO (11:34)
--- NOTE | 2023-04-07 13:30 | PTCARENOTE ---
Pt oob ad joan in the room. Denies any chest pain or sob. Right groin site dressing dry and intact with no hematoma. Pt discharged to home with his son. Discharge instructions given and reviewed with good understanding.
--- NOTE | 2023-04-27 13:06 | HFEDUCATE ---
Pt had F/U phone call on 04/08/23 at 5:52PM from Bright Garber to make F/U appointment and discuss discharge recommendations. Pt had F/U appt on 04/13/23 at 2:00PM with Dr. Santos Weinberg MD
== END 2023-04-07 13:38 | disposition home or self-care (01) | DRG 286 ==
LOC: IVU 20:52
PROVIDERS: Emergency Medicine; Hospitalist; Internal Medicine Cardiovascular Disease; Nurse Practitioner; ADMITTING PHYSICIAN Hospitalist; ATTENDING PHYSICIAN Hospitalist; CONSULT PHYSICIAN Internal Medicine; EMERGENCY PHYSICIAN Emergency Medicine; FAMILY PHYSICIAN Family Medicine
PROC: B2121ZZ Fluoroscopy of Single Coronary Artery Bypass Graft using Low Osmolar Contrast (ICD-10-PCS; 2023-04-06)
PROC: B2181ZZ Fluoroscopy of Left Internal Mammary Bypass Graft using Low Osmolar Contrast (ICD-10-PCS; 2023-04-06)
PROC: B2111ZZ Fluoroscopy of Multiple Coronary Arteries using Low Osmolar Contrast (ICD-10-PCS; 2023-04-06)
PROC: 4A023N8 Measurement of Cardiac Sampling and Pressure, Bilateral, Percutaneous Approach (ICD-10-PCS; 2023-04-06)
DX: I11.0 Hypertensive heart disease with heart failure (principal); I50.23 Acute on chronic systolic (congestive) heart failure; F11.20 Opioid dependence, uncomplicated; E11.42 Type 2 diabetes mellitus with diabetic polyneuropathy; E11.51 Type 2 diabetes mellitus with diabetic peripheral angiopathy without gangrene; E78.00 Pure hypercholesterolemia, unspecified; I25.10 Atherosclerotic heart disease of native coronary artery without angina pectoris; G89.4 Chronic pain syndrome; I5A Non-ischemic myocardial injury (non-traumatic); Z95.1 Presence of aortocoronary bypass graft; Z95.5 Presence of coronary angioplasty implant and graft; Z95.3 Presence of xenogenic heart valve
CPT/HCPCS: 71046; 80048; 80053; 80061; 82962; 83880; 84484; 85025; 85027; 85730; 93005; 93306; 93461; 96365; 96375; 99285; C1769; C1894; Q9950; Q9967

== ENCOUNTER → 2023-04-21 08:12 | Outpatient (REF) | payer MEDICARE, OTHER, SELFPAY ==
[2023-04-21 10:17] LABS: HDL Cholesterol 39 mg/dl; LDL Cholesterol, Calculated 59 mg/dl; Total Cholesterol 122 mg/dl (50-199); Triglyceride 120 mg/dl (10-149); Very Low Density Lipoprotein 24 mg/dl (0-30)
[2023-04-21 12:57] LABS: ALT (SGPT) 16 U/L (0-50); AST (SGOT) 25 U/L (17-59); Albumin 3.7 g/dl (3.5-5.0); Alkaline Phosphatase 99 U/L (38-126); Blood Urea Nitrogen 23 mg/dl (9-20); Calcium 9.2 mg/dl (8.4-10.2); Carbon Dioxide 29 mmol/L (22-30); Chloride 102 mmol/L (98-107); Glucose 120 mg/dl (70-99); Potassium 4.2 mmol/L (3.5-5.1); Sodium 137 mmol/L (135-145); Total Bilirubin 0.9 mg/dl (0.2-1.3); Total Protein 6.4 g/dl (6.3-8.2); eGFR > 60.00
== END ==
LOC: HWLAB 08:12
PROVIDERS: ATTENDING PHYSICIAN Nurse Practitioner Gerontology; FAMILY PHYSICIAN Family Medicine
DX: I25.10 Atherosclerotic heart disease of native coronary artery without angina pectoris (principal)
CPT/HCPCS: 36415; 80053; 80061

== ENCOUNTER → 2023-04-22 07:41 | Outpatient (REF) | payer MEDICARE, OTHER, SELFPAY | LOC: RAD 07:41 | PROVIDERS: ATTENDING PHYSICIAN Surgery Vascular Surgery; FAMILY PHYSICIAN Family Medicine | DX: I73.9 Peripheral vascular disease, unspecified (principal); I65.23 Occlusion and stenosis of bilateral carotid arteries; I35.0 Nonrheumatic aortic (valve) stenosis | CPT/HCPCS: 93880; 93922; 93925 ==

== ENCOUNTER 2023-04-29 06:07 | Day surgery (SDC) | payer MEDICARE, OTHER, SELFPAY ==
[2023-04-29] VITALS (28 sets, daily range): BP systolic 69–118; BP diastolic 36–60; BMI 30.9
[2023-04-29 07:00] LABS: Glucose - Point of Care 121 mg/dl (70-99)
[2023-04-29] MEDS: NSS 277 ML IV (07:01)
--- NOTE | 2023-04-29 07:07 | W.SUR.PREOP ---
Pre-Operative Surgical Note
-
I have examined this patient prior to the performance of the scheduled procedure.
The patient's condition is unchanged from the time of the current History and
Physical and the patient is able to undergo the scheduled procedure.
[2023-04-29 07:11] LABS: Hematocrit 33.3 % (39.0-52.0); Hemoglobin 11.4 g/dL (13.0-18.0); Mean Corp Hgb Conc. 34.2 g/dL (33.0-37.0); Mean Corpuscular Hgb 29.8 pg (27.0-31.0); Mean Corpuscular Volume 86.9 fL (80.0-94.0); Mean Platelet Volume 10.7 fL (7.4-10.4); Platelet Count 309 10^3/uL (130-400); Red Blood Cell Count 3.83 10^6/uL (4.70-6.10); Red Cell Dist. Width 14.1 % (11.5-14.5); White Blood Cell Count 10.5 10^3/uL (4.8-10.8)
[2023-04-29 07:20] LABS: INR 1.03; PT 13.3 Sec (11.4-14.6)
[2023-04-29 07:21] LABS: APTT 35.9 Sec (23.4-35.0)
[2023-04-29 07:24] LABS: Blood Urea Nitrogen 22 mg/dl (9-20); Calcium 9.5 mg/dl (8.4-10.2); Carbon Dioxide 27 mmol/L (22-30); Chloride 102 mmol/L (98-107); Estimated Creatinine Clearance 62 ml/min; Glucose 110 mg/dl (70-99); Potassium 4.3 mmol/L (3.5-5.1); Sodium 139 mmol/L (135-145); eGFR > 60.00
--- NOTE | 2023-04-29 08:26 | W.SUR.POST ---
Surgical Immediate Post Op
Note
Pre Op Diagnosis: PAD
Post Op Diagnosis: PAD
Procedure Performed: Diagnostic RLE angiogram
Primary Surgeon: Jeramy
Anesthesia: local and sedation
Estimated Blood Loss: <2cc
Fluids: see anesthesia flow sheet
Drains/Shunts: none
Specimens/Cultures: none
Doppler/Duplex/Angio (Y/N): Y
Complications: none
Operative Findings: No endovascular options at this time, will evaluate for bypass
[2023-04-29 08:43] LABS: Glucose - Point of Care 74 mg/dl (70-99)
[2023-04-29] MEDS: NSS 1000 IV (09:34)
[2023-04-29] MEDS: ROXICODONE 5 MG PO (10:08)
--- NOTE | 2023-04-29 12:28 | OR.RPT ---
Operative Report
Operative Report
PROCEDURE DATE: 04/29/2023
Preoperative diagnosis: Chronic limb threatening ischemia right lower extremity.
Postoperative diagnosis: Same
Procedure:
1. Duplex assisted left common femoral artery cannulation.
2. Aortogram and pelvic angiogram.
3. Right lower extremity arteriogram via selective cannulation of right common femoral and right superficial femoral arteries.
4. Left femoral angiogram.
5. Supervision and interpretation.
Surgeon: Jeramy
Assistant Professor Of Radiology: None
Complications: None
Anesthesia: Local, sedation
Fluoroscopy:
1.7 min
68.35 mGy
29.88 Gy.cm2
Indications for procedure:
Patient with history of prior TP trunk artery to peroneal artery bypass side performed for limb threatening ischemia. Healed his wounds prior. Has developed recurrent right first toe ulceration (heals and then reulcerates) at a site of mechanical
deformity of the toe. Given nonhealing and concern for even worsening, and given findings of diminished toe pressures discussed angiography. Discussed with patient there may be limited options due to my review of prior angiography demonstrating
patent peroneal artery, but relatively poor flow distally and no other tibial targets. Risk/benefits/alternatives of angiography were fully discussed. Patient understood all wish to proceed.
Description of procedure:
Patient was identified, brought to the operating room. Placed on the table in the supine position. After the adequate administration of anesthesia, the patient was prepped and draped in the standard surgical fashion. A standard preoperative
timeout was undertaken and everybody was in agreement with the plan.
The left common femoral artery was accessed with a micropuncture kit under direct duplex ultrasound guidance. A 5 Khmer sheath was then advanced over a 0.035 inch wire, and a slaughter's hook catheter was advanced into the abdominal aorta.
Aortogram and pelvic angiogram was obtained. Findings as follows:
Infrarenal aorta: Patent with with some luminal irregularity distally, may be a mild stenosis but no severe stenosis.
Right common iliac artery: Patent with no significant stenosis.
Right external iliac artery: Patent with no significant stenosis.
Left common iliac artery: Patent with no significant stenosis.
Left external iliac artery: Patent with no significant stenosis.
Using a floppy angled hydrophilic wire, the right common femoral artery was cannulated and the catheter was advanced. Right lower extremity arteriogram was obtained. Findings as follows:
Common femoral artery: Patent with no significant stenosis.
Profunda femoris artery: Patent proximally for the first 2 to 3 cm and then severe stenosis/occlusion with very poor filling distally.
Superficial femoral artery: Patent with some mild eccentric plaque but no significant stenosis.
Popliteal artery: Patent with no significant stenosis.
Anterior tibial artery: Chronically occluded; delayed imaging demonstrates reconstitution of dorsalis pedis artery on the foot.
Tibial peroneal trunk: Patent with no significant stenosis.
Peroneal artery: Widely patent TP trunk to peroneal artery bypass with no significant stenosis. Peroneal artery runoff widely patent to the ankle with no significant stenosis. At the ankle relatively weak Y collaterals given. On delayed imaging
via these slow collaterals reconstitution of the dorsalis pedis could be seen.
Posterior tibial artery: Chronically occluded.
At this point I felt that there is no endovascular option here. The only potential revascularization option would be a bypass from either the peroneal or popliteal artery to the DP. At this point the catheter was withdrawn. Left femoral angiogram
was performed that demonstrated good puncture in the left common femoral artery. The patient was taken the recovery room where the sheath was withdrawn and manual pressure applied. Hemostasis fully achieved.
The patient tolerated procedure well.
[2023-04-29 13:56] LABS: Glucose - Point of Care 89 mg/dl (70-99)
== END 2023-04-29 16:05 | disposition home or self-care (01) ==
LOC: CATH 06:07
PROVIDERS: ATTENDING PHYSICIAN Surgery Vascular Surgery; FAMILY PHYSICIAN Family Medicine; OTHER PHYSICIAN Internal Medicine Cardiovascular Disease
DX: I70.235 Atherosclerosis of native arteries of right leg with ulceration of other part of foot (principal); L97.519 Non-pressure chronic ulcer of other part of right foot with unspecified severity; I65.23 Occlusion and stenosis of bilateral carotid arteries; Z79.82 Long term (current) use of aspirin; Z79.84 Long term (current) use of oral hypoglycemic drugs; Z79.891 Long term (current) use of opiate analgesic; E11.9 Type 2 diabetes mellitus without complications; E78.2 Mixed hyperlipidemia; I25.10 Atherosclerotic heart disease of native coronary artery without angina pectoris; Z95.5 Presence of coronary angioplasty implant and graft
CPT/HCPCS: 36246; 75716; 75625; 80048; 82962; 85027; 85610; 85730; 86850; 86900; 86901; 93970; C1769; C1887; Q9967

== ENCOUNTER → 2023-07-28 07:55 | Outpatient (REF) | payer MEDICARE, OTHER, SELFPAY | LOC: HWRCS 07:55 | PROVIDERS: ATTENDING PHYSICIAN Nurse Practitioner Gerontology; FAMILY PHYSICIAN Family Medicine | DX: I50.20 Unspecified systolic (congestive) heart failure (principal) | CPT/HCPCS: 93306 ==

== ENCOUNTER → 2023-09-11 07:40 | Outpatient (REF) | payer MEDICARE, OTHER, SELFPAY ==
[2023-09-11 09:59] LABS: % Basophils 0.4 % (0-2); % Immature Granulocytes 0.6 % (0-0.5); % Lymphocytes 28.4 % (20.5-51.1); % Monocytes 9.1 % (1.7-9.3); % Neutrophils 59.5 % (42.2-75.2); Absolute Basophils 0.1 10^3/uL (0-0.2); Absolute Eosinophils 0.2 10^3/uL (0-0.7); Absolute Immature Granulocytes 0.1 10^3/uL (0-0.05); Absolute Lymphocytes 3.2 10^3/uL (1.2-3.4); Absolute Neutrophils 6.7 10^3/uL (1.4-6.5); Hematocrit 40.3 % (39.0-52.0); Hemoglobin 14.1 g/dL (13.0-18.0); Mean Corpuscular Hgb 31.5 pg (27.0-31.0); Mean Platelet Volume 10.6 fL (7.4-10.4); Nucleated Red Blood Cells % 0 % (-); Platelet Count 282 10^3/uL (130-400); Red Blood Cell Count 4.48 10^6/uL (4.70-6.10); Red Cell Dist. Width 13.6 % (11.5-14.5); White Blood Cell Count 11.3 10^3/uL (4.8-10.8)
[2023-09-11 10:51] LABS: Microalbumin, Random Urine 3.6 mg/dl (0.6-1.7); Microalbumin/creatinine Ratio 12.6 mg/g
[2023-09-11 12:11] LABS: ALT (SGPT) 27 U/L (0-50); AST (SGOT) 34 U/L (17-59); Albumin 4.4 g/dl (3.5-5.0); Alkaline Phosphatase 82 U/L (38-126); Blood Urea Nitrogen 26 mg/dl (9-20); Calcium 10.1 mg/dl (8.4-10.2); Carbon Dioxide 28 mmol/L (22-30); Chloride 100 mmol/L (98-107); Glucose 106 mg/dl (70-99); HDL Cholesterol 35 mg/dl; Potassium 4.3 mmol/L (3.5-5.1); Sodium 138 mmol/L (135-145); Total Bilirubin 0.7 mg/dl (0.2-1.3); Total Protein 6.7 g/dl (6.3-8.2); Triglyceride 126 mg/dl (10-149); Very Low Density Lipoprotein 25 mg/dl (0-30); eGFR > 60.00
[2023-09-11 12:20] LABS: LDL Cholesterol, Calculated 69 mg/dl; Total Cholesterol 129 mg/dl (50-199)
[2023-09-12 10:30] LABS: Glycohemoglobin (HgbA1c) 8.3 % (4.0-5.6)
== END ==
LOC: HWLAB 07:40
PROVIDERS: ATTENDING PHYSICIAN Family Medicine; REFERRING PHYSICIAN Internal Medicine Endocrinology, Diabetes & Metabolism
DX: E11.51 Type 2 diabetes mellitus with diabetic peripheral angiopathy without gangrene (principal); Z79.4 Long term (current) use of insulin; G62.9 Polyneuropathy, unspecified; F11.20 Opioid dependence, uncomplicated; N18.31 Chronic kidney disease, stage 3a; I25.10 Atherosclerotic heart disease of native coronary artery without angina pectoris; I50.22 Chronic systolic (congestive) heart failure; I10 Essential (primary) hypertension; E78.2 Mixed hyperlipidemia; G89.4 Chronic pain syndrome
CPT/HCPCS: 36415; 80053; 80061; 82043; 82570; 83036; 85025

== ENCOUNTER 2023-11-16 23:32 | Observation (INO) | payer MEDICARE, OTHER, SELFPAY ==
[2023-11-16 20:28] VITALS: BP 156/64
[2023-11-16 20:44] LABS: % Basophils 0.3 % (0-2); % Eosinophils 2.9 % (0-6); % Immature Granulocytes 0.3 % (0-0.5); % Lymphocytes 26.6 % (20.5-51.1); % Monocytes 7.8 % (1.7-9.3); % Neutrophils 62.1 % (42.2-75.2); Absolute Eosinophils 0.3 10^3/uL (0-0.7); Absolute Lymphocytes 2.4 10^3/uL (1.2-3.4); Absolute Monocytes 0.7 10^3/uL (0.1-0.6); Absolute Neutrophils 5.7 10^3/uL (1.4-6.5); Hematocrit 33.3 % (39.0-52.0); Hemoglobin 11.6 g/dL (13.0-18.0); Mean Corp Hgb Conc. 34.8 g/dL (33.0-37.0); Mean Corpuscular Hgb 31.3 pg (27.0-31.0); Mean Corpuscular Volume 89.8 fL (80.0-94.0); Mean Platelet Volume 11.3 fL (7.4-10.4); Nucleated Red Blood Cells % 0 % (-); Platelet Count 226 10^3/uL (130-400); Red Blood Cell Count 3.71 10^6/uL (4.70-6.10); Red Cell Dist. Width 13.2 % (11.5-14.5); White Blood Cell Count 9.1 10^3/uL (4.8-10.8)
[2023-11-16 20:56] VITALS: BMI 32.8
[2023-11-16 20:57] LABS: APTT 30.1 Sec (23.4-35.0)
[2023-11-16 21:00] VITALS: BP 163/62
[2023-11-16 21:06] LABS: ALT (SGPT) 24 U/L (0-50); AST (SGOT) 27 U/L (17-59); Albumin 4.1 g/dl (3.5-5.0); Alkaline Phosphatase 82 U/L (38-126); Blood Urea Nitrogen 25 mg/dl (9-20); Calcium 9.4 mg/dl (8.4-10.2); Carbon Dioxide 22 mmol/L (22-30); Chloride 102 mmol/L (98-107); Estimated Creatinine Clearance 52 ml/min; Glucose 535 mg/dl (70-99); Potassium 4.7 mmol/L (3.5-5.1); Sodium 139 mmol/L (135-145); Total Bilirubin 0.7 mg/dl (0.2-1.3); Total Protein 6.2 g/dl (6.3-8.2); eGFR 51.45
[2023-11-16 21:14] LABS: NT-proBNP 1080 pg/ml; Troponin I 0.025 ng/ml
--- NOTE | 2023-11-16 21:22 | ED.GENMED ---
History of Present Illness
General
Chief Complaint: Chest Pain
Source: patient
Exam Limitations: none
Time Seen by Provider: 11/16/23 21:22
Nursing documentation reviewed up to this point in time: agreed with
History of Present Illness
History of Present Illness:
78-year-old male with history of CAD, CABG x 4 and aortic valve replacement, CAD, HTN, HLD, AL, IDDM, chronic pain opioid dependence, chronic HFrEF presents stating he's had intermittent chest pains for past 3 days. Took NTG this 6 a.m. with some
relief, again at 8 p.m. with no relief. Feels SOB with this pain. Arrives with pain 6/10, non radiating, Pain is sharp. This evening was associated with nausea and SOB.
Past History
Past History
ED Past Medical History: CAD, GERD, HTN, Hypercholesterolemia, NIDDM, AL, Psychiatric (Depression) and Other (chronic pain, diabetic peripheral neuropathy, peripheral arterial disease)
ED Past Surgical History: Cardiac (CABG 2010, aortic valve replacement 2015, cardiac stenting 2018, stent 2022), Tonsilectomy and Other (Xiphoid removal, right lower extremity arteriogram with bypass 2019)
Social History
Tobacco: Former smoker
Alcohol: None
Personal:
Living: with family
Family History
Family History: Other (Reviewed and noncontributory)
Review of Systems
Review of Systems
Allergies reviewed?: Yes
Other source history: family
All Other Systems: ROS reviewed and negative except as documented in HPI and ROS
Constitutional: Denies fever or fatigue
Respiratory: Denies trouble breathing
Cardiac: Reports chest pain; Denies diaphoresis or palpitations
ABD/GI: Denies abdominal pain, nausea, vomiting or diarrhea
: Denies dysuria or difficulty voiding
Musculoskeletal: Reports no symptoms; Denies edema
Skin: Reports no symptoms
Neurological: Reports no symptoms
Endocrine: Denies polyuria or polydipsia
Phy Exam
Physical Exam
Physical Exam:
GENERAL: No acute distress. A&Ox3.
CONSTITUTIONAL: Afebrile.
EYES: clear, conjunctivae normal
ENMT: moist mucus membranes, Pharynx nl
RESPIRATORY: Regular respirations, nonlabored, lungs clear.
CARDIOVASCULAR: Regular rate and rhythm, no murmurs, no rubs.
GI: Soft, nontender, normal BS
MUSCULOSKELETAL: Moves with ease. Well perfused.
SKIN: Warm, dry, pink
PSYCH: Normal mood and affect. Well kept, interactive and appropriate
NEUROLOGIC: Awake, alert and oriented. No focal neurological deficits
Scores
Heart Score for Chest Pain Patients
STEMI patient?: Not applicable
Course
Orders/Labs/Results
Orders:
Orders
11/16/23 20:22
Electrocardiogram (*1) Urgent
Reason for Study: Chest Pain
CR Chest - 2 Views Urgent
Comment:
Reason For Exam: chest pain
11/16/23 20:23
EKG- Treatment ONCE
11/16/23 20:36
Complete Blood Count/With Diff Urgent
Comprehensive Metabolic Panel Urgent
NT-proBNP Urgent
PTT Urgent
Troponin I Urgent
11/16/23 21:23
Nitroglycerin Sublingual [Nitrostat (Sublingual)] 0.4 mg .ROUTE .RUST-MED ONE
Nitroglycerin Sublingual [Nitrostat (Sublingual)] 0.4 mg SL NOW STA
11/16/23 22:14
Bedside Glucose- Treatment Q1H
IV Insert/Care/Rem.- Treatment PRN
Insulin Human Regular [Novolin R] 10 units IV NOW STA
11/16/23 22:16
EKG- Treatment ONCE
11/16/23 22:40
Basic Metabolic Panel Q2H
11/16/23 23:12
EKG [Electrocardiogram (*1)] Urgent
Reason for Study: Other
Other Reason for Exam: troponin
EKG- Treatment ONCE
11/16/23 23:17
Troponin I Urgent
11/16/23 23:30
EKG [Electrocardiogram (*1)] Urgent
Reason for Study: Other
Other Reason for Exam: troponin
Electrocardiogram (*1) Urgent
Reason for Study: Chest Pain
11/16/23 23:32
Admit/Transfer Patient As Directed
Co-Sign Provider:
Level of Care: Observation services
Assign to:: Telemetry
Physician / Group: Justo
Diagnosis: Chest pain
Reason for Telemetry: Chest Pain syndromes
Date to Stop Telemetry: 11/18/23
Time to Stop Telemetry: 11:00
PRN Pain Medication Management As Directed
May give lesser potent ordered pain med per pt: Yes
preference::
Protocol:: Medication orders for pain may be administered in a
manner that supports deferring to patient preference
when the pt is:
- Requesting an ordered lesser potent pain medication.
Least to most potent pain medications are defined
as: acetaminophen < NSAID < tramadol < opioids
(morphine, oxycodone, hydromorphone).
- Requesting a lesser dose of the same medication IF
ORDERED.
- Requesting a less intrusive route of administration
if both routes are prescribed by the provider (PO <
IV).
11/16/23 23:34
Code Status As Directed
Resuscitation Status: Full Code
11/17/23 00:15
Basic Metabolic Panel Q2H
11/17/23 02:15
Basic Metabolic Panel Q2H
11/18/23 11:00
DC Protocol for Telemetry ONCE
Abnormal Lab Results
11/16/23 11/16/23 11/16/23
20:36 21:41 22:40
RBC 3.71 L 10^6/uL
(4.70-6.10)
Hgb 11.6 L g/dL
(13.0-18.0)
Hct 33.3 L %
(39.0-52.0)
MCH 31.3 H pg
(27.0-31.0)
MPV 11.3 H fL
(7.4-10.4)
Absolute Monos (auto) 0.7 H 10^3/uL
(0.1-0.6)
BUN 25 H mg/dl 24 H mg/dl
(9-20) (9-20)
Creatinine 1.4 H mg/dL
(0.7-1.3)
Glucose 535 H* mg/dl 408 H mg/dl
(70-99) (70-99)
Total Protein 6.2 L g/dl
(6.3-8.2)
POC Glucose 430 H mg/dl
(70-99)
11/16/23
23:06
RBC
Hgb
Hct
MCH
MPV
Absolute Monos (auto)
BUN
Creatinine
Glucose
Total Protein
POC Glucose 428 H mg/dl
(70-99)
11/16/23 20:36
11/16/23 22:40
Vital Signs
Initial and Last Documented VS:
Initial Vital Signs
Temp Pulse Resp BP Pulse Ox
97.7 F 69 18 156/64 100
11/16/23 20:28 11/16/23 20:28 11/16/23 20:28 11/16/23 20:28 11/16/23 20:28
Last Documented Vital Signs
Temp Pulse Resp BP Pulse Ox
97.7 F 64 19 122/61 95
11/16/23 20:28 11/16/23 23:45 11/16/23 23:45 11/16/23 23:42 11/16/23 23:45
MDM/Problems Addressed
Differential Diagnosis Includes:
unstable angina, AL
DKA, hyperglycemia
MDM/Problems Addressed:
78-year-old male with history of CAD, CABG x 4 and aortic valve replacement, CAD, HTN, HLD, AL, IDDM, chronic pain opioid dependence, chronic HFrEF presents stating he's had intermittent chest pains for past 3 days. Took NTG this 6 a.m. with some
relief, again at 8 p.m. with no relief. Feels SOB with this pain. Arrives with pain 08/02, non radiating, Pain is sharp. This evening was associated with 'some' SOB.
CP from 08/02 to 06/02 after NTG given here.
CBC: No clinically significant abnormality
CMP: BUN/creat 25/1.4 glucose 535
Troponin WNL
BNP 1080
Chest x-ray: Radiology report read: IMPRESSION:
1. Suspected mild interstitial cardiogenic pulmonary edema.
2. Mild cardiomegaly.
3. Previous CABG surgery and aortic valve replacement.
4. Mild elevation of the anterior right hemidiaphragm.
10:15 p.m.
Recheck bedside glucose 430 Insulin 10 U IV ordered
Pt has not been checking his glucose levels due to cost. He typically only checks it in the mornings and has been low 100's. Never this high.
Dr. Leary in to evaluate and agrees:
Plan: Admit for hyperglycemia, IDDM w chest pain that is relieved with NTG.
Repeat Troponin, EKG, monitor glucose
Hospitalist notified of admission.
*Critical Care Note
Total Time (30-74mins, 75-104mins- exclusive of procedures): Not Applicable
ED Attending Note
-
Portions of this chart may have been created with voice recognition software.� Occasional wrong word or��sound alike� substitutions may have occurred due to the inherent limitations of voice recognition software.
Discharge Plan
Departure
Patient Disposition: Admit
Date of Disposition: 11/16/23
Time of Disposition: 22:38
Admit to: Telemetry
Presentation/result/management discussed w/ accepting MD/DO: Hospitalist
Condition: Fair
Discharge Problem:
Chest pain, Hyperglycemia due to diabetes mellitus
Prescriptions:
No Action
insulin lispro [Humalog U-100 Insulin] 100 UNIT/ML solution
15 unit SC AC
multivitamin 1 EACH tablet
1 ea PO DAILY
duloxetine 60 MG capsule,delayed release(DR/EC)
60 mg PO DAILY
atorvastatin 80 mg tablet
80 mg PO QPM
aspirin 81 mg Tablet,Delayed Release (Dr/Ec)
81 mg PO DAILY
metformin 1,000 MG tablet
1,000 mg PO BID@0800,1700 Qty: 1 0RF
nitroglycerin 0.4 mg Tablet, Sublingual
0.4 mg sublingual [id number] PRN (Reason: chest pain) Qty: 30 0RF
furosemide 40 mg Tablet
40 mg PO DAILY Qty: 30 0RF
clopidogrel [Plavix] 75 mg Tablet
75 mg PO DAILY
spironolactone 25 mg Tablet
12.5 mg PO DAILY 30 Days Qty: 15 0RF
metoprolol succinate 25 mg Tablet Extended Release 24 Hr
25 mg PO BID 30 Days Qty: 60 0RF
oxycodone 10 MG tablet
10 mg PO QID Qty: 0 0RF
valsartan 80 mg Tablet
80 mg PO DAILY
insulin glargine [Lantus Solostar U-100 Insulin] 300 UNITS/3 ML insulin pen
25 unit SC HS
Referrals:
Santos Weinberg MD [Family Provider] -
Interventions
Interventions:
*Risk Screen - Suicide Last Done: 11/16/23 20:28
*General Assessment Last Done: 11/16/23 20:28
*Neglect/Abuse Screening Last Done: 11/16/23 20:28
ED- Fall Risk Assessment Last Done: 11/16/23 21:02
*ED COVID-19 Vaccine History Last Done: 11/16/23 20:56
ED- Cardiac Assessment Last Done: 11/16/23 20:56
Discharge Date and Time
Print Language: [place]
[2023-11-16 21:24] VITALS: BP 156/60
[2023-11-16] MEDS: NITROSTAT (SUBLINGUAL) 0.4 MG SL (21:24)
[2023-11-16 21:39] VITALS: BP 137/62
[2023-11-16 21:42] LABS: Glucose - Point of Care 430 mg/dl (70-99)
[2023-11-16 22:03] VITALS: BP 141/55
[2023-11-16] MEDS: NOVOLIN R 10 UNITS IV (23:04)
[2023-11-16 23:07] LABS: Glucose - Point of Care 428 mg/dl (70-99)
[2023-11-16 23:26] LABS: Blood Urea Nitrogen 24 mg/dl (9-20); Calcium 9.4 mg/dl (8.4-10.2); Carbon Dioxide 23 mmol/L (22-30); Chloride 103 mmol/L (98-107); Estimated Creatinine Clearance 56 ml/min; Glucose 408 mg/dl (70-99); Potassium 4.9 mmol/L (3.5-5.1); Sodium 139 mmol/L (135-145); eGFR 56.23
--- NOTE | 2023-11-16 23:38 | HPS.HSE ---
Family Physician
-
Family Physician: Santos Weinberg
Chief Complaint
-
Chest Pain
History of Present Illness
Patient is a 78y M with PMH significant for ASCVD, CHF and DM-II who presents to ED complaining of chest pain and SOB. Patient states that he has been having intermittent chest pain symptoms for the past 3 days or so. Pain is left-sided and
described as 'sharp'. Patient states that pain is similar to his previous angina symptoms. Chest discomfort is associated with SOB. No N/V or diaphoresis. Not lightheaded or dizzy. Patient has taken a few doses of NTG SL over the past few days
with improvement in his symptoms. This evening, he had onset fo chest discomfort and SOB around 6 PM. He took a SL NTG at 6 and again at 8 PM - both times without improvement in his symptoms. He presented to the ED for further evaluation and
treatment.
At present, patient is resting comfortably in the ED. He states that he has no chest pain at present. His SOB is much improved.
Medical History
Past Medical History
Past Medical History: Reports Other
Additional Past Medical History:
ASCVD (CAD, PAD, Carotid Disease)
Aortic Stenosis
Chronic HFrEF
DM-II with Neuropathy
Hypertension
Chronic Pain Syndrome
Past Surgical History: Reports Other
Additional Past Surgical History:
CABG
PTCA with Stent (multiple)
Bio AVR
RLE Angio / Bypass
Right CEA
T&A
Social History
Tobacco: Former Smoker (Quit smoking in 1979.)
Alcohol: None
Drug: None
Family History
Family History: Not pertinent
Allergies / Home Medications
Allergies reflects when Allergies were last updated in [facility].
Home Medications with original date entered in [facility]
Allergy/Medication List:
Allergies
Allergy/AdvReac Type Severity Reaction Status Date / Time
lisinopril Allergy cough Verified 04/29/23 07:01
Home Medications
insulin lispro 100 unit/mL subcutaneous solution (Humalog U-100 Insulin) 15 unit SC AC Diabetes 09/24/15
multivitamin 1 ea PO DAILY Supplement 11/19/17
duloxetine 60 mg capsule,delayed release 60 mg PO DAILY Mental Health/Anxiety 10/12/19
aspirin 81 mg tablet,delayed release 81 mg PO DAILY Blood clot prevention/tx 01/20/22
atorvastatin 80 mg tablet 80 mg PO QPM High cholesterol 01/20/22
metformin 1,000 mg tablet 1,000 mg PO BID@0800,1700 Diabetes #1 tab 05/16/22
nitroglycerin 0.4 mg sublingual tablet 0.4 mg sublingual [id number] PRN chest pain #30 tabs 10/16/22
furosemide 40 mg tablet 40 mg PO DAILY #30 tabs 11/30/22
clopidogrel 75 mg tablet (Plavix) 75 mg PO DAILY Blood Clot Prevention/Tx 04/04/23
metoprolol succinate 25 mg tablet,extended release 24 hr 25 mg PO BID Blood pressure 30 days #60 tabs 04/07/23
oxycodone 10 mg tablet 10 mg PO QID mod-severe pain #0 tabs 04/07/23
spironolactone 25 mg tablet 12.5 mg (1/2 x 25 mg) PO DAILY Heart disease/condition 30 days #15 tabs 04/07/23
insulin glargine 100 unit/mL (3 mL) subcutaneous pen (Lantus Solostar U-100 Insulin) 25 unit SC HS Diabetes 11/16/23
valsartan 80 mg tablet 80 mg PO DAILY 11/16/23
Review of Systems
-
History Source: Patient
A 12 point ROS was completed and negative except as noted: Yes
Constitutional: Denies Fever or Chills
EENT: Denies Sore Throat
Respiratory: Reports Trouble Breathing; Denies Cough
Cardiac: Reports Chest Pain; Denies Diaphoresis, Palpitations or Syncope
Abdomen/GI: Denies Abdominal Pain, Nausea, Vomiting or Diarrhea
: Denies Dysuria, Frequency or Flank Pain
Musculoskeletal: Reports Edema; Denies Joint Pain
Neurological: Denies Dizzy or Headache
Physical Exam
Vital Signs
Vital Signs
Temp Pulse Resp BP Pulse Ox
97.7 F 67 14 141/55 98
11/16/23 20:28 11/16/23 23:00 11/16/23 22:45 11/16/23 22:03 11/16/23 22:30
Physical Exam
General: Other (78y M in no acute distress.)
HEENT: Moist mucous membranes and PERRLA
Respiratory: Other (Few bibasilar rales. No wheeze/ rhonchi.)
Cardiac: S1/S2 and Regular Rhythm; No Murmur
GI: Soft, Non Tender, Non Distended and Normal Bowel Sounds
Musculoskeletal: No Clubbing, No Cyanosis and Other (Trace edema at ankles - R > L.)
Neuro: AO x 3
Laboratory Results
-
11/16/23 20:36
11/16/23 22:40
Laboratory Results
APTT 30.1 Sec (23.4-35.0) 11/16/23 20:36
Total Bilirubin 0.7 mg/dl (0.2-1.3) 11/16/23 20:36
AST 27 U/L (17-59) 11/16/23 20:36
ALT 24 U/L (0-50) 11/16/23 20:36
Alkaline Phosphatase 82 U/L (38-126) 11/16/23 20:36
Troponin I 0.025 ng/ml 11/16/23 20:36
Impression/Plan
-
A/P: Patient is a 78y M with PMH significant for ASCVD, HTN and DM-II who presents to ED complaining of chest pain and SOB over the past 3 days.
Chest Pain
ASCVD
- Observe overnight for further evaluation and treatment.
- Initial troponin is non-negative, but decreased from prior values.
- EKG with incomplete LBBB and non-specific ST changes - again, appearing improved from prior.
- Monitor on tele overnight.
- IV Heparin infusion for now given history and description of current symptoms identical to his prior episodes of angina.
- Cardiology evaluation for additional recommendations.
- Had cath in 03/2023 showing multivessel disease - medical therapy recommended.
- Continue usual CV med regimen including DAPT, statin, etc.
- Follow for any new / recurrent symptoms.
Chronic HFrEF
- Stable. Does not appear volume overloaded at present.
- Continue current GDMT including Lasix, aldactone, etc.
- Follow daily weights, I/Os, etc.
DM-II, Uncontrolled
- No significant elevation in anion gap, etc to suggest DKA / HHNK.
- Patient notes that he stopped his Farxiga recently due to marked increase in cost.
- Continue basal : bolus insulin regimen.
- Follow glucose and cover with correction SSI.
- Update A1C and adjust insulin dosing as needed for improved control.
Benign Hypertension
- Stable. Continue current med regimen with holding parameters.
Chronic Pain Syndrome
- Stable. Continue oxycodone PRN.
DVT Prophylaxis: On IV Heparin at present
Code Status: Full
[2023-11-16 23:42] VITALS: BP 122/61
[2023-11-17] VITALS: BP 124/47
[2023-11-17 00:15] LABS: Glucose - Point of Care 273 mg/dl (70-99)
[2023-11-17 00:45] LABS: Blood Urea Nitrogen 23 mg/dl (9-20); Calcium 9.2 mg/dl (8.4-10.2); Carbon Dioxide 26 mmol/L (22-30); Chloride 106 mmol/L (98-107); Estimated Creatinine Clearance 61 ml/min; Glucose 259 mg/dl (70-99); Potassium 4.4 mmol/L (3.5-5.1); Sodium 142 mmol/L (135-145); eGFR > 60.00
[2023-11-17 01:23] VITALS: BP 152/56; BMI 30.8
[2023-11-17 02:37] LABS: APTT 29.3 Sec (23.4-35.0)
[2023-11-17] MEDS: HEPARIN 4000 UNITS IV (02:54)
[2023-11-17 03:04] VITALS: BP 145/54
[2023-11-17] MEDS: HEPARIN 25000 UNITS/250 ML IV (03:13)
[2023-11-17 06:33] LABS: Glucose - Point of Care 188 mg/dl (70-99)
[2023-11-17 07:10] VITALS: BP 153/66
--- NOTE | 2023-11-17 07:17 | W.PN.HOSP.TC ---
Today's Communication/Plan
-
Started on Imdur 30 mg daily
Cleared by cardiology for discharge today
Assessment / Plan
Assessment / Plan
78y M with PMH significant for ASCVD, HTN and DM-II who presents to ED complaining of chest pain and SOB over the past 3 days.
Chest Pain
ASCVD
- EKG with incomplete LBBB and non-specific ST changes - again, appearing improved from prior.
- Had cath in 03/2023 showing multivessel disease - medical therapy recommended.
- Appreciate cardiology input, troponin 0.181, which is lower than 03/2023 when pt had cath
- He is currently chest pain-free
- Cardiology recommends adding Imdur 30 mg daily, continue aspirin/Plavix/statin
- Cleared by cardiology for discharge today, follow-up with cardiology in the office in 2-3 weeks
Chronic HFrEF
- Stable. Does not appear volume overloaded at present.
- Continue current GDMT including Lasix, aldactone, etc.
DM-II, Uncontrolled
- No significant elevation in anion gap, etc to suggest DKA / HHNK.
- Patient notes that he stopped his Farxiga recently due to marked increase in cost.
- Continue basal : bolus insulin regimen, SSI
- A1C 8.3
Benign Hypertension
- Stable. Continue current med regimen with holding parameters.
Chronic Pain Syndrome
- Stable. Continue oxycodone PRN.
Physical Exam
General: No acute distress
HEENT: Normocephalic, Atraumatic, EOMI, MMM
Respiratory: Clear to Auscultation bilaterally
Cardiac: Normal S1/S2, Regular Rate and Rhythm
GI: Soft, Nontender, Nondistended, Normal Bowel Sounds
Extremities: No Clubbing, Cyanosis, or Edema
Neuro: Nonfocal/Grossly Intact
Psych: Calm, Cooperative
Anticipated Discharge: Today
Subjective/Interval History
-
Date of Service: November 17, 2023
No more chest pain. No shortness of breath, no nausea, no vomiting. No fever.
Objective Data
-
Labs:
Laboratory Results
11/16/23 11/16/23 11/17/23
20:36 22:40 00:14
WBC 9.1
Hgb 11.6 L
Hct 33.3 L
Plt Count 226
APTT 30.1
Sodium 139 139 142
Potassium 4.7 4.9 4.4
Chloride 102 103 106
Carbon Dioxide 22 23 26
BUN 25 H 24 H 23 H
Creatinine 1.4 H 1.3 1.2
Glucose 535 H* 408 H 259 H
Calcium 9.4 9.4 9.2
Total Bilirubin 0.7
AST 27
ALT 24
Alkaline Phosphatase 82
11/17/23 11/17/23 11/17/23
01:04 02:10 02:15
WBC Cancelled
Hgb Cancelled
Hct Cancelled
Plt Count Cancelled
APTT 29.3
Sodium Cancelled
Potassium Cancelled
Chloride Cancelled
Carbon Dioxide Cancelled
BUN Cancelled
Creatinine Cancelled
Glucose Cancelled
Calcium Cancelled
Total Bilirubin
AST
ALT
Alkaline Phosphatase
11/17/23 11/17/23
06:00 09:15
WBC Pending
Hgb Pending
Hct Pending
Plt Count Pending
APTT Pending
Sodium Pending
Potassium Pending
Chloride Pending
Carbon Dioxide Pending
BUN Pending
Creatinine Pending
Glucose Pending
Calcium Pending
Total Bilirubin
AST
ALT
Alkaline Phosphatase
Vital Signs:
Vital Signs
Temp Pulse Resp BP Pulse Ox
97.8 F 64 16 145/54 97
11/17/23 03:04 11/17/23 03:04 11/17/23 03:04 11/17/23 03:04 11/17/23 03:04
I&O
11/16/23 11/17/23 11/18/23
06:59 06:59 06:59
Output Total 950 / 950
Balance -950 / -950
--- NOTE | 2023-11-17 07:52 | CON.CAR ---
Addendum entered and electronically signed by Gilbert Ly MD 11/17/23 10:45:
I saw and examined the patient.
The SENIOR DEVELOPER's note was reviewed and I agree with the note.
Comment: 78-year-old male (formerly known to Dr. Salas), with CAD s/p CABG (WEBB to LAD, Sequential SVG to OM1 --> OM2 --> RPDA) 2010, with subsequent PCI of the ostial SVG, complicated by ISR requiring repeat PCI, then PTCA 11/2022, ICM (LVEF
25%), chronic HFrEF, severe s/p bioprosthetic AVR 2015, HTN, HLD, PAD, IDDM admitted with chest pain. His troponin is minimally elevated, previously in March troponin of 0.4 and subsequent cath not showing progressive CAD, thus it does not
appear to be clear ACS and he is now CP free. I discussed with him trying anti-anginal medications which he is agreeable to, if CP returns then likely stress test (PET MPI) for further ischemic testing.
- Imdur 30 mg
- IF recurred then PET MPI
Original Note:
Consultation
Consultation Request
Date/Time Consultation Requested: 11/17/2023 01:00
Date/Time Consultation Performed: 11/17/2023 07:50
Requesting Provider: Dr. Kemp
Performing Provider: RAMONA Hartley for Dr. Ly
Reason for Consultation: Chest pain
Medical History
-
Chief Complaint: Chest pain
History of Present Illness:
Bhavik Spring is a 78-year-old male (formerly known to Dr. Salas), with CAD s/p CABG (WEBB to LAD, Sequential SVG to OM1 --> OM2 --> RPDA) 2010, with subsequent PCI of the ostial SVG, complicated by ISR requiring repeat PCI, then PTCA 11/2022,
ICM (LVEF 25%), chronic HFrEF, severe s/p bioprosthetic AVR 2015, HTN, HLD, PAD, IDDM admitted with chest pain. It started last evening at approximately 6 PM. He describes it as sharp and 6 out of 10 at its worst. He took 1 sublingual
nitroglycerin and did not receive full relief. He did not take a second nitroglycerin until close to 8 PM. He presented to the emergency department shortly thereafter where he was given a third nitroglycerin which he states gave him full relief.
He is wondering if maybe his sublingual nitroglycerin is . He denies associated shortness of breath, nausea, and diuresis. He does report that the pain radiated up into his neck. He has not had any chest pain since arrival to the emergency
department. His EKG does not show acute ischemia. His troponin is currently 0.030 and is being trended. Notable labs on admission is a glucose of 535 and a creatinine of 1.4. His proBNP is 1080 at a weight of 97 kg.
Past Medical History
Past Medical History: CAD (CABG), CHF (ICM), HTN, Hypercholesterolemia, IDDM, [place], Valvular Disease (aortic stenosis S/P AVR) and Other (LBBB)
Past Surgical History: Cardiac (CABG, bio-AVR) and Tonsilectomy
Social History
Tobacco: Former Smoker
Family History
Family History: Early CAD (none)
Allergies / Home Medications
Allergy/AdvReac Type Severity Reaction Status Date / Time
lisinopril Allergy cough Verified 04/29/23 07:01
�Medication �Instructions �Recorded �Confirmed �Type
insulin lispro 100 unit/mL 15 unit SC AC Diabetes 09/24/15 11/16/23 History
subcutaneous solution (Humalog
U-100 Insulin)
multivitamin 1 ea PO DAILY Supplement 11/19/17 11/16/23 History
duloxetine 60 mg capsule,delayed 60 mg PO DAILY Mental 10/12/19 11/16/23 History
release Health/Anxiety
aspirin 81 mg tablet,delayed 81 mg PO DAILY Blood clot 01/20/22 11/16/23 History
release prevention/tx
atorvastatin 80 mg tablet 80 mg PO QPM High cholesterol 01/20/22 11/16/23 History
metformin 1,000 mg tablet 1,000 mg PO BID@0800,1700 Diabetes 05/16/22 11/16/23 Rx
#1 tab
nitroglycerin 0.4 mg sublingual 0.4 mg sublingual [id number] PRN 10/16/22 11/16/23 Rx
tablet chest pain #30 tabs
furosemide 40 mg tablet 40 mg PO DAILY #30 tabs 11/30/22 11/16/23 Rx
clopidogrel 75 mg tablet (Plavix) 75 mg PO DAILY Blood Clot 04/04/23 11/16/23 History
Prevention/Tx
metoprolol succinate 25 mg 25 mg PO BID Blood pressure 30 04/07/23 11/16/23 Rx
tablet,extended release 24 hr days #60 tabs
oxycodone 10 mg tablet 10 mg PO QID mod-severe pain #0 04/07/23 11/16/23 Rx
tabs
spironolactone 25 mg tablet 12.5 mg (1/2 x 25 mg) PO DAILY 04/07/23 11/16/23 Rx
Heart disease/condition 30 days
#15 tabs
insulin glargine 100 unit/mL (3 25 unit SC HS Diabetes 11/16/23 11/16/23 History
mL) subcutaneous pen (Lantus
Solostar U-100 Insulin)
valsartan 80 mg tablet 80 mg PO DAILY 11/16/23 11/16/23 History
Review of Systems
-
History Source: Patient
All other systems: Negative unless noted
Constitutional: No Symptoms
EENT: No Symptoms
Respiratory: No Symptoms
Cardiac: No Symptoms
Abdomen/GI: No Symptoms
: No Symptoms
Musculoskeletal: No Symptoms
Skin: No Symptoms
Neurological: No Symptoms
Endocrine: No Symptoms
Hematologic/Lymphatic: No Symptoms
Physical Exam
Vital Signs
Temp Pulse Resp BP Pulse Ox
97.8 F 64 16 145/54 97
11/17/23 03:04 11/17/23 03:04 11/17/23 03:04 11/17/23 03:04 11/17/23 03:04
Lab Results
Troponin I Cancelled 11/17/23 17:00
Ljd-O-Syhvhhlwigx Pept 1080 pg/ml 11/16/23 20:36
Physical Exam
General: Well Developed, Well Nourished, No Apparent Distress and Comfortable
HEENT: Normocephalic, Anicteric and Moist Mucous Membranes
Respiratory: Clear and Non Labored Respirations
Cardiac: S1/S2 and Regular Rhythm
Breast: Deferred by me
GI: Soft, Non Tender, Non Distended and Normal Bowel Sounds
Rectal: Deferred by Provider
Genito-urinary: No Costovertebral Tender
Musculoskeletal: No Clubbing, No Cyanosis and No Edema
Skin: Warm and Dry
Neuro: AO x 3
Hematologic/Lymphatic: No Lymphadenopathy
Psych: Calm
Impression / Plan
-
Chest pain
-Chest pain free
-08/02 sharp left sided chest pain
-Troponin flat
HFrEF, chronic
-Does not appear volume overloaded, his weight is up on his trend
-LVEF 15-20% (03/2023), 30-35% on most recent study (07/2023)
-GDMT as tolerated
-Beta-markus: Metoprolol succinate 25mg BID
-MRA: Spironolactone 12.5 mg daily
-VICKY/ARB: Valsartan 80 mg
-SGLT2: Can consider
-Diuretic: Furosemide 40 mg to maintain euvolemia
-Trend daily weight, I/O
CAD
-CABG (WEBB to LAD, Sequential SVG to OM1 --> OM2 --> RPDA) 2010
-PCI of the ostial SVG, complicated by ISR requiring repeat PCI, then PTCA 11/2022
Intraventricular conduction delay
Aortic stenosis S/P bioAVR (25 mm bovine) 09/2015, peak/mean gradient of 19/12mmHg (07/2023)
HLD, goal LDL < 55, continue atorvastatin for now, lipid panel pending, he may need transition to rosuvastatin
Type II DM, with hyperglycemia, glucose 535 in ER, per primary
DATA:
Echocardiogram, 07/28/2023:
Moderately reduced left ventricular systolic function. Left ventricular
ejection fraction is 30-35%.
Global hypokinesis.
Stage II diastolic dysfunction suggestive of abnormal relaxation and increased
filling pressures.
Bioprosthetic aortic valve seen with a peak/mean gradient of 19/12mmHg. No
aortic regurgitation.
Compared to the prior on 04/06/2023 the ejection fraction has increased from 15
to 20% to 30 to 35%.
Cardiac catheterization, 04/06/2023:
1. Right dominant circulation with chronic total occlusion of the entire little traverse circulation status post bypass (patent WEBB to LAD, patent sequential SVG to OM1 to OM 2 to RPDA) with moderate to severe diffuse disease within the circumflex and RCA
vessels, prior PCI to the ostium of the saphenous vein graft requiring previous repeat PCI and angioplasty, now with 20-30% ISR lesion.
2. Well-seated #25 bioprosthetic surgical aortic valve with a mean gradient of 16.25 mmHg, aortic valve area of 0.93 cm�. Gradient suggest mild stenosis while valve area is severe. This is suggestive of low-flow, low gradient aortic valve
stenosis versus pseudo stenosis. Gradient is similar to prior cardiac catheterization of 11/26/2022.
3. Moderately elevated filling pressures (LVEDP = 20 mmHg, PCWP = 20 mmHg at 88.5 kg), likely appropriate to mildly elevated given degree of LV dysfunction.
Data Reviewed
-
EKG: Report Reviewed by me (Sinus rhythm, 1st degree AV block)
Labs: Labs Reviewed by me
Old Records: Reviewed
--- NOTE | 2023-11-17 08:31 | PTCARENOTE ---
Addendum entered by Cecilia Norwood RN 11/17/23 08:47:
prn dante 10mg given for b/l 6/10 LE pain. pt takes for chronic pain at home QID, in MAR as QID prn. see [facility] for proper documentation.
Original Note:
pt NPO on a heparin gtt. initial ptt 29.3 at 0210. heparin going through RUE peripheral site. pt is aaox3, verbalizing a 0/10 pain in the chest. pt is NPO with sips and chips. nurse reached out to MD and cardiology about morning aspirin and plavix
dose. MD states ok to give.
[2023-11-17] MEDS: DIOVAN 80 MG PO (08:38)
[2023-11-17] MEDS: CYMBALTA DELAYED RELEASE 60 MG PO (08:39)
[2023-11-17] MEDS: ASPIR LOW (ENTERIC COATED) 81 MG PO (08:39)
[2023-11-17] MEDS: LASIX 40 MG PO (08:40)
[2023-11-17] MEDS: ALDACTONE 12.5 MG PO (08:40)
[2023-11-17] MEDS: PLAVIX 75 MG PO (08:40)
[2023-11-17] MEDS: TOPROL XL 25 MG PO (08:40)
[2023-11-17] MEDS: ROXICODONE 10 MG PO (08:45)
[2023-11-17 09:21] LABS: Hematocrit 34.5 % (39.0-52.0); Hemoglobin 12.4 g/dL (13.0-18.0); Mean Corp Hgb Conc. 35.9 g/dL (33.0-37.0); Mean Corpuscular Hgb 32.6 pg (27.0-31.0); Mean Corpuscular Volume 90.8 fL (80.0-94.0); Mean Platelet Volume 11.3 fL (7.4-10.4); Platelet Count 215 10^3/uL (130-400); Red Cell Dist. Width 13.2 % (11.5-14.5); White Blood Cell Count 10.7 10^3/uL (4.8-10.8)
[2023-11-17 09:23] LABS: APTT 39.8 Sec (23.4-35.0)
[2023-11-17 09:41] LABS: Troponin I 0.181 ng/ml
[2023-11-17 09:50] LABS: Blood Urea Nitrogen 18 mg/dl (9-20); Calcium 9.4 mg/dl (8.4-10.2); Carbon Dioxide 22 mmol/L (22-30); Chloride 106 mmol/L (98-107); Estimated Creatinine Clearance 65 ml/min; Glucose 214 mg/dl (70-99); HDL Cholesterol 37 mg/dl; LDL Cholesterol, Calculated 67 mg/dl; Potassium 4.4 mmol/L (3.5-5.1); Sodium 142 mmol/L (135-145); Total Cholesterol 137 mg/dl (50-199); Triglyceride 168 mg/dl (10-149); Very Low Density Lipoprotein 33 mg/dl (0-30); eGFR > 60.00
[2023-11-17] MEDS: IMDUR (EXTENDED RELEASE) 30 MG PO (10:52)
[2023-11-17 10:55] VITALS: BP 155/68
[2023-11-17 11:02] LABS: Glycohemoglobin (HgbA1c) 8.3 % (4.0-5.6)
--- NOTE | 2023-11-17 11:21 | W.DCSUMMARY ---
Discharge Summary
Discharge Data
Date of Admission: 11/16/23
Date of Discharge: 11/17/23
-
Pending Results: No
Hospital Course
Discharge diagnosis:
Chest pain
Coronary artery disease
Chronic heart failure with reduced ejection fraction
Type 2 diabetes, hemoglobin A1c 8.3
Benign hypertension
Chronic pain syndrome
Consults: Cardiology
Hospital course:
78-year-old male with a past medical history of CAD, HTN, and type 2 diabetes who was admitted for chest pain and shortness of breath. Patient was seen in conjunction with cardiology. His troponin aurelia to 0.181, which is lower than his previous in
March 2023 when he had cardiac catheterization. Cardiac catheterization at that time showed multivessel coronary artery disease, and medical management was recommended. Patient's chest pain resolved. Cardiology recommends adding Imdur 30 mg
daily. Patient is medically stable and cleared by cardiology for discharge. He needs to follow-up with cardiology in the office in 2-3 weeks.
Disposition: Home self-care
Discharge planning: Required 37-minute
Discharge Plan
-
Patient Disposition: Home (Routine Discharge)
Discharge Diagnosis/Procedures: Chest pain, unclear etiology, coronary artery disease
Condition: Fair
Diet: Low Fat, Low Cholesterol, 2 Gram Sodium and Diabetic, Carb Controlled
Activity: As tolerated
Driving Restrictions: As prior to admission
Referrals:
Nayely Grullon CRNP [Specified Professional Personl] - 12/04/23 2:20 pm
Santos Weinberg MD [Family Provider] - in one week
Prescriptions:
New
isosorbide mononitrate 30 mg Tablet Extended Release 24 Hr
30 mg PO DAILY Qty: 30 0RF
Continued
insulin lispro [Humalog U-100 Insulin] 100 UNIT/ML solution
15 unit SC AC
multivitamin 1 EACH tablet
1 ea PO DAILY
duloxetine 60 MG capsule,delayed release(DR/EC)
60 mg PO DAILY
atorvastatin 80 mg tablet
80 mg PO QPM
aspirin 81 mg Tablet,Delayed Release (Dr/Ec)
81 mg PO DAILY
metformin 1,000 MG tablet
1,000 mg PO BID@0800,1700 Qty: 1 0RF
nitroglycerin 0.4 mg Tablet, Sublingual
0.4 mg sublingual [id number] PRN (Reason: chest pain) Qty: 30 0RF
furosemide 40 mg Tablet
40 mg PO DAILY Qty: 30 0RF
clopidogrel [Plavix] 75 mg Tablet
75 mg PO DAILY
spironolactone 25 mg Tablet
12.5 mg PO DAILY 30 Days Qty: 15 0RF
metoprolol succinate 25 mg Tablet Extended Release 24 Hr
25 mg PO BID 30 Days Qty: 60 0RF
oxycodone 10 MG tablet
10 mg PO QID Qty: 0 0RF
valsartan 80 mg Tablet
80 mg PO DAILY
insulin glargine [Lantus Solostar U-100 Insulin] 300 UNITS/3 ML insulin pen
25 unit SC HS
Discharge Orders:
Discharge Patient (As Directed); Ordered 11/17/23
Ordered By: Nick Ambriz
Discharge Date and Time
Discharge Date/Time: 11/17/23 12:12
Print Language: FAROESE
--- NOTE | 2023-11-17 16:07 | CM ---
Patient discharged today.
Observation status.
Daughter transporting patient home.
No needs. States will be following up with PCP & Cardiology.
PCP: Santos Weinberg
Pharmacy: [facility]
PLAN: Discharged today
Daughter transported.
== END 2023-11-17 12:12 | disposition home or self-care (01) ==
LOC: 2 NORTH 23:32
PROVIDERS: Emergency Medicine; Nurse Practitioner Gerontology; Registered Nurse; ADMITTING PHYSICIAN Hospitalist; ATTENDING PHYSICIAN Family Medicine; EMERGENCY PHYSICIAN Emergency Medicine; FAMILY PHYSICIAN Family Medicine; OTHER PHYSICIAN Internal Medicine Cardiovascular Disease
DX: R07.9 Chest pain, unspecified (principal); I25.10 Atherosclerotic heart disease of native coronary artery without angina pectoris; G89.4 Chronic pain syndrome; F11.20 Opioid dependence, uncomplicated; E11.65 Type 2 diabetes mellitus with hyperglycemia; I11.0 Hypertensive heart disease with heart failure; E11.51 Type 2 diabetes mellitus with diabetic peripheral angiopathy without gangrene; I50.22 Chronic systolic (congestive) heart failure; R06.02 Shortness of breath; R11.0 Nausea; I35.0 Nonrheumatic aortic (valve) stenosis; E78.5 Hyperlipidemia, unspecified; F32.A Depression, unspecified; E78.00 Pure hypercholesterolemia, unspecified; K21.9 Gastro-esophageal reflux disease without esophagitis; E11.42 Type 2 diabetes mellitus with diabetic polyneuropathy; M54.2 Cervicalgia; I49.1 Atrial premature depolarization; I25.2 Old myocardial infarction; Z95.1 Presence of aortocoronary bypass graft; Z95.3 Presence of xenogenic heart valve; Z87.891 Personal history of nicotine dependence; Z95.5 Presence of coronary angioplasty implant and graft; Z79.4 Long term (current) use of insulin; Z79.82 Long term (current) use of aspirin; Z79.02 Long term (current) use of antithrombotics/antiplatelets; Z79.84 Long term (current) use of oral hypoglycemic drugs; Z88.8 Allergy status to other drugs, medicaments and biological substances; I44.7 Left bundle-branch block, unspecified
CPT/HCPCS: 71046; 80048; 80053; 80061; 82962; 83036; 83880; 84484; 85025; 85027; 85730; 93005; 96374; 99285; G0378

== ENCOUNTER → 2023-12-24 08:35 | Outpatient (REF) | payer MEDICARE, OTHER, SELFPAY ==
[2023-12-24 13:00] LABS: Blood Urea Nitrogen 32 mg/dl (9-20); Calcium 9.8 mg/dl (8.4-10.2); Carbon Dioxide 29 mmol/L (22-30); Chloride 99 mmol/L (98-107); Glucose 152 mg/dl (70-99); Potassium 4.2 mmol/L (3.5-5.1); Sodium 143 mmol/L (135-145); eGFR 40.75
== END ==
LOC: HWLAB 08:35
PROVIDERS: ATTENDING PHYSICIAN Nurse Practitioner; FAMILY PHYSICIAN Family Medicine
DX: I42.9 Cardiomyopathy, unspecified (principal)
CPT/HCPCS: 36415; 80048

== ENCOUNTER 2023-12-31 19:48 | Inpatient (IN) | payer MEDICARE, OTHER, SELFPAY ==
[2023-12-31] VITALS (14 sets, daily range): BP systolic 115–171; BP diastolic 46–84; BMI 32.7; BMI 30.9
[2023-12-31 16:11] LABS: % Basophils 0.4 % (0-2); % Eosinophils 3.3 % (0-6); % Immature Granulocytes 0.4 % (0-0.5); % Lymphocytes 20.9 % (20.5-51.1); % Monocytes 8.6 % (1.7-9.3); % Neutrophils 66.4 % (42.2-75.2); Absolute Eosinophils 0.3 10^3/uL (0-0.7); Absolute Lymphocytes 1.9 10^3/uL (1.2-3.4); Absolute Monocytes 0.8 10^3/uL (0.1-0.6); Hematocrit 31.7 % (39.0-52.0); Hemoglobin 10.9 g/dL (13.0-18.0); Mean Corp Hgb Conc. 34.4 g/dL (33.0-37.0); Mean Corpuscular Hgb 31.1 pg (27.0-31.0); Mean Corpuscular Volume 90.3 fL (80.0-94.0); Nucleated Red Blood Cells % 0 % (-); Platelet Count 207 10^3/uL (130-400); Red Blood Cell Count 3.51 10^6/uL (4.70-6.10); Red Cell Dist. Width 13.2 % (11.5-14.5); White Blood Cell Count 9.1 10^3/uL (4.8-10.8)
[2023-12-31 16:20] LABS: ALT (SGPT) 23 U/L (0-50); AST (SGOT) 30 U/L (17-59); Albumin 3.9 g/dl (3.5-5.0); Alkaline Phosphatase 71 U/L (38-126); Blood Urea Nitrogen 16 mg/dl (9-20); Calcium 9.7 mg/dl (8.4-10.2); Carbon Dioxide 24 mmol/L (22-30); Chloride 104 mmol/L (98-107); Glucose 179 mg/dl (70-99); Potassium 4.3 mmol/L (3.5-5.1); Sodium 140 mmol/L (135-145); Total Bilirubin 0.9 mg/dl (0.2-1.3); Total Protein 6.1 g/dl (6.3-8.2); eGFR 56.23
--- NOTE | 2023-12-31 17:21 | ED.GENMED ---
History of Present Illness
General
Chief Complaint: Chest Pain
Time Seen by Provider: 12/31/23 17:21
History of Present Illness
History of Present Illness:
TIME OF INITIAL ENCOUNTER: 5:30 PM
HPI: The patient presents due to chest discomfort as well as shortness of breath. Is been ongoing for the past 3 days or so. He spoke to somebody from [facility] cardiology who advised him to come in here for further evaluation. Family notes
that he has been having increasing lower extremity edema as well which is new. He describes the chest discomfort is very similar to when he is had heart attack in the past. His last cath was in March of this year and it was also just here 6
weeks ago and was heparinized at that time.
EXAM:
GENERAL: Well appearing but appears to be in mild distress related to chest pain and shortness of breath
HEENT: Moist oral mucosa
CARDIOVASCULAR: No murmurs, normal heart rate, regular rhythm, No chest wall tenderness
PULMONARY: No respiratory distress, some faint rales at the bases but overall clear
ABDOMEN: Soft with no peritoneal signs, no tenderness
NEUROLOGIC: Excellent strength all extremities, no coordination deficits
PSYCHIATRIC: Appropriate mental status, normal insight and judgement
EXTREMITIES: Nontender, 1+ bilateral lower extremity edema, moves all extremities equally
SKIN: No rash, no lesions
NUMBER AND COMPLEXITY OF PROBLEMS ADDRESSED AT THE ENCOUNTER
� Chronic conditions affecting care: Aortic stenosis, CAD/[place], high blood pressure, hyperlipidemia
� Acute Exacerbation and/or Progression of Chronic Illness: This is an acute problem
� Differential Diagnosis includes: Heart failure, ACS, poorly controlled high blood pressure
AMOUNT AND/OR COMPLEXITY OF DATA TO BE REVIEWED AND ANALYZED
� I performed an independent evaluation of and my interpretation is:
EKG: Sinus 61, IVCD with some STD in V4 through V6 which is somewhat more prominent in comparison to 11/17/2023
CT:
X-rays: Chest x-ray shows some mild degree of pulmonary edema
Laboratory Studies: White count normal hemoglobin slightly lower currently at 10.9 down from 12.4, chemistries unremarkable however glucose is 179
Other:
� Review of other/old records: The patient had a coronary cath in March 2023 that showed multivessel coronary disease for which medical management was recommended and at that time Imdur was added.
� Clinical information was obtained by an independent historian: I spoke to family at bedside
� Prescriptions/Medications Considered but not given: Considered heparinization however in discussion with cardiology, Dr. Roland we agreed to hold off at this time as he favors heart failure more
� Further testing considered but not performed:
RISK OF COMPLICATIONS AND/OR MORBIDITY OR MORTALITY OF PATIENT MANAGEMENT
� Social determinants of health affecting care: Lives at home
� Discussion with other providers: Discussed with Dr. Villareal above; Dr. Ronquillo for admission at 6:55 PM
� Escalation of care including admission/observation vs risk of discharge considered: See below
ANY OTHER UPDATES:
6:50 PM: The patient has new lower extremity edema, worsening BNP, and chest x-ray that shows some degree of volume overload. I have ordered IV diuresis. I considered heparinization however Dr. Roland prefers to hold off on heparinization at this
time and only to start if troponin worsen. He has known coronary disease.
Past History
Past History
ED Past Medical History: CAD, GERD, HTN, Hypercholesterolemia, NIDDM, [place], Psychiatric (Depression) and Other (chronic pain, diabetic peripheral neuropathy, peripheral arterial disease)
ED Past Surgical History: Cardiac (CABG 2010, aortic valve replacement 2015, cardiac stenting 2018, stent 2022), Tonsilectomy and Other (Xiphoid removal, right lower extremity arteriogram with bypass 2019)
Social History
Tobacco: Former smoker
Alcohol: None
Personal:
Living: with family
Family History
Family History: Other (Reviewed and noncontributory)
Phy Exam
Physical Exam
Physical Exam:
See HPI
Scores
Heart Score for Chest Pain Patients
STEMI patient?: Not applicable
Course
Orders/Labs/Results
Orders:
Orders
12/31/23 15:30
Electrocardiogram (*1) Urgent
Reason for Study: Chest Pain
EKG- Treatment ONCE
12/31/23 15:47
Complete Blood Count/With Diff Urgent
Comprehensive Metabolic Panel Urgent
12/31/23 17:32
Add On- LAB Urgent
Tests Added?: bnp
Nitroglycerin Sublingual [Nitrostat (Sublingual)] 0.4 mg SL NOW STA
12/31/23 17:50
NT-proBNP Urgent
Comment: ADD ON
Troponin I Urgent
Comment: ADD ON TO CMP IN LAB
12/31/23 18:12
CR Chest Portable - 1 View Urgent
Comment:
Reason For Exam: cp sob
Reason Study Needs to be Portable: Unable to Transport
12/31/23 18:46
Furosemide [Lasix] 40 mg IV NOW STA
12/31/23 18:48
Nitroglycerin Sublingual [Nitrostat (Sublingual)] 0.4 mg SL NOW STA
Abnormal Lab Results
12/31/23
15:47
RBC 3.51 L 10^6/uL
(4.70-6.10)
Hgb 10.9 L g/dL
(13.0-18.0)
Hct 31.7 L %
(39.0-52.0)
MCH 31.1 H pg
(27.0-31.0)
MPV 11.0 H fL
(7.4-10.4)
Absolute Monos (auto) 0.8 H 10^3/uL
(0.1-0.6)
Glucose 179 H mg/dl
(70-99)
Total Protein 6.1 L g/dl
(6.3-8.2)
12/31/23 15:47
12/31/23 15:47
Vital Signs
Initial and Last Documented VS:
Initial Vital Signs
Temp Pulse Resp BP Pulse Ox
98.2 F 58 20 145/52 99
12/31/23 15:38 12/31/23 15:38 12/31/23 15:38 12/31/23 15:38 12/31/23 15:38
Last Documented Vital Signs
Temp Pulse Resp BP Pulse Ox
97.9 F 57 20 150/58 97
12/31/23 17:49 12/31/23 18:30 12/31/23 18:30 12/31/23 18:30 12/31/23 18:30
*Critical Care Note
Total Time (30-74mins, 75-104mins- exclusive of procedures): Not Applicable
ED Attending Note
-
Portions of this chart may have been created with voice recognition software.� Occasional wrong word or��sound alike� substitutions may have occurred due to the inherent limitations of voice recognition software.
Discharge Plan
Departure
Patient Disposition: Admit
Date of Disposition: 12/31/23
Time of Disposition: 18:52
Presentation/result/management discussed w/ accepting MD/DO: Hospitalist
Patient with high blood pressure during this ER visit?: Yes
Discharge Problem:
Congestive heart failure (CHF)
Prescriptions:
No Action
insulin lispro [Humalog U-100 Insulin] 100 UNIT/ML solution
15 unit SC AC
multivitamin 1 EACH tablet
1 ea PO DAILY
duloxetine 60 MG capsule,delayed release(DR/EC)
60 mg PO DAILY
atorvastatin 80 mg tablet
80 mg PO QPM
aspirin 81 mg Tablet,Delayed Release (Dr/Ec)
81 mg PO DAILY
metformin 1,000 MG tablet
1,000 mg PO BID@0800,1700 Qty: 1 0RF
nitroglycerin 0.4 mg Tablet, Sublingual
0.4 mg sublingual [id number] PRN (Reason: chest pain) Qty: 30 0RF
furosemide 40 mg Tablet
40 mg PO DAILY Qty: 30 0RF
clopidogrel [Plavix] 75 mg Tablet
75 mg PO DAILY
spironolactone 25 mg Tablet
12.5 mg PO DAILY 30 Days Qty: 15 0RF
metoprolol succinate 25 mg Tablet Extended Release 24 Hr
25 mg PO BID 30 Days Qty: 60 0RF
oxycodone 10 MG tablet
10 mg PO QID Qty: 0 0RF
valsartan 80 mg Tablet
80 mg PO DAILY
insulin glargine [Lantus Solostar U-100 Insulin] 300 UNITS/3 ML insulin pen
25 unit SC HS
isosorbide mononitrate 30 mg Tablet Extended Release 24 Hr
30 mg PO DAILY Qty: 30 0RF
Referrals:
Santos Weinberg MD [Family Provider] -
Interventions
Interventions:
*Risk Screen - Suicide Last Done: 12/31/23 15:38
*General Assessment Last Done: 12/31/23 17:42
*Neglect/Abuse Screening Last Done: 12/31/23 15:38
ED- Cardiac Assessment Last Done: 12/31/23 17:58
Discharge Date and Time
Print Language: MOHAWK
[2023-12-31] MEDS: NITROSTAT (SUBLINGUAL) 0.4 MG SL ×4 (17:55→23:31)
[2023-12-31 18:20] LABS: NT-proBNP 2920 pg/ml; Troponin I 0.033 ng/ml
--- NOTE | 2023-12-31 19:03 | HPS.HSE ---
Addendum entered and electronically signed by Mirela Ronquillo MD 12/31/23 21:43:
Patient states chest pain and shortness was worse with laying flat and lifting legs up, not with exertion.
Original Note:
Family Physician
-
Family Physician: Santos Weinberg
Chief Complaint
-
chest pain and shortness of breath
History of Present Illness
Mr. Bhavik Spring is a 78 yo man with hx CAD s/p CABG 2010 with subsequent PCI, ischemic cardiomyopathy with EF 25%, severe s/p bioprosthetic AVR 2015, HTN, HLD, PAD, IDDM presents to the ER with chest pain and shortness of breath.
Over the past two days he reports increased shortness of breath and chest pain. Chest pain now resolved post nitro. He has increased swelling in his legs. He was weighing himself daily after last admission but stopped two weeks ago. He takes his
Lasix daily.
No fevers/chills. No cough/congestion. No abdominal pain/nausea/vomiting.
Patient was admitted in March with concern for NSTEMI status post catheterization which showed no culprit (chest pain thought secondary to heart failure) and medical management recommended. He was admitted again in October with angina and
Imdur was added to regimen.
Medical History
Past Medical History
Past Medical History: Reports Other
Additional Past Medical History:
ASCVD (CAD, PAD, Carotid Disease)
Aortic Stenosis
Chronic HFrEF
DM-II with Neuropathy
Hypertension
Chronic Pain Syndrome
Past Surgical History: Reports Other
Additional Past Surgical History:
CABG
PTCA with Stent (multiple)
Bio AVR
RLE Angio / Bypass
Right CEA
T&A
Social History
Tobacco: Former Smoker (Quit smoking in 1979.)
Alcohol: None
Drug: None
Family History
Family History: Not pertinent
Allergies / Home Medications
Allergies reflects when Allergies were last updated in [facility].
Home Medications with original date entered in [facility]
Allergy/Medication List:
Allergies
Allergy/AdvReac Type Severity Reaction Status Date / Time
lisinopril Allergy cough Verified 12/31/23 15:37
Home Medications
multivitamin 1 ea PO DAILY Supplement 11/19/17
aspirin 81 mg tablet,delayed release 81 mg PO DAILY Blood clot prevention/tx 01/20/22
atorvastatin 80 mg tablet 80 mg PO QPM High cholesterol 01/20/22
metformin 1,000 mg tablet 1,000 mg PO BID@0800,1700 Diabetes #1 tab 05/16/22
nitroglycerin 0.4 mg sublingual tablet 0.4 mg sublingual [id number] PRN chest pain #30 tabs 10/16/22
furosemide 40 mg tablet 40 mg PO DAILY #30 tabs 11/30/22
clopidogrel 75 mg tablet (Plavix) 75 mg PO DAILY Blood Clot Prevention/Tx 04/04/23
metoprolol succinate 25 mg tablet,extended release 24 hr 25 mg PO BID Blood pressure 30 days #60 tabs 04/07/23
oxycodone 10 mg tablet 10 mg PO QID mod-severe pain #0 tabs 04/07/23
spironolactone 25 mg tablet 12.5 mg (1/2 x 25 mg) PO DAILY Heart disease/condition 30 days #15 tabs 04/07/23
insulin glargine 100 unit/mL (3 mL) subcutaneous pen (Lantus Solostar U-100 Insulin) 25 unit SC HS Diabetes 11/16/23
valsartan 80 mg tablet 80 mg PO DAILY 11/16/23
isosorbide mononitrate 30 mg tablet,extended release 24 hr 30 mg PO DAILY #30 tabs 11/17/23
insulin lispro 100 unit/mL subcutaneous pen (Admelog SoloStar U-100 Insulin lispro) 15 unit SC AC 12/31/23
Review of Systems
-
History Source: Patient
A 12 point ROS was completed and negative except as noted: Yes
Physical Exam
Vital Signs
Vital Signs
Temp Pulse Resp BP Pulse Ox
97.9 F 57 20 150/58 97
12/31/23 17:49 12/31/23 18:30 12/31/23 18:30 12/31/23 18:30 12/31/23 18:30
Physical Exam
General: No Apparent Distress
HEENT: PERRLA
Respiratory: Rales
Cardiac: S1/S2 and Regular Rhythm
GI: Soft and Non Tender
Musculoskeletal: Edema, Right Upper Extremity and Edema, Left Lower Extremity
Skin: Warm and Dry; No Rash
Neuro: AO x 3
Psych: Calm
Laboratory Results
-
12/31/23 15:47
12/31/23 15:47
Laboratory Results
Total Bilirubin 0.9 mg/dl (0.2-1.3) 12/31/23 15:47
AST 30 U/L (17-59) 12/31/23 15:47
ALT 23 U/L (0-50) 12/31/23 15:47
Alkaline Phosphatase 71 U/L (38-126) 12/31/23 15:47
Troponin I 0.033 ng/ml 12/31/23 17:50
Data Reviewed
-
Diagnostic Radiology: Report Reviewed by me
Lab Data: Labs Reviewed by me
Impression/Plan
-
Mr. Bhavik Spring is a 78 yo man with hx CAD s/p CABG 2010 with subsequent PCI, ischemic cardiomyopathy with EF 30-35% 08/16, severe s/p bioprosthetic AVR 2015, HTN, HLD, PAD, IDDM presents to the ER with chest pain and shortness of breath found
to be in acute heart failure.
Triage VS: T 98.2, P 58, RR 20, BP 145/52, SpO2 99%
LABS: WBC 9.1, Hg 10.9, PLT 207, Na 140, K+ 4.3, Cl 104, CO2 24, BUN 16, Cr 1.3, Glucose 179, liver enzymes WNL, Trop 0.033, BNP 2920
CXR
IMPRESSION:
Cardiomegaly with increased pulmonary vascularity. Most likely differential diagnostic possibilities would be CHF or atypical acute pulmonary edema.
MAR: lasix 40mg IV x1, subL nitro x 2
TTE 08/16
CONCLUSIONS
Moderately reduced left ventricular systolic function. Left ventricular
ejection fraction is 30-35%.
Global hypokinesis.
Stage II diastolic dysfunction suggestive of abnormal relaxation and increased
filling pressures.
Bioprosthetic aortic valve seen with a peak/mean gradient of 19/12mmHg. No
aortic regurgitation.
Compared to the prior on 04/06/2023 the ejection fraction has increased from 15
to 20% to 30 to 35%.
Heart Failure reduced EF Acute Exacerbation
Coronary Artery Disease s/p CABG 2010 with subsequent PCI
Hyperlipidemia
Ischemic Cardiomyopathy
Essential Hypertension
-plan discussed with cardiology on admission, full consult tomorow
-admit to telemetry
-IV Lasix BID
-trend Troponin, start IV heparin gtt if increases, chest pain seems to be more likely from heart failure exacerbation
-daily weights, strict I/O, fluid restriction
-CORE MAN Regimen:
Aspirin, Plavix, Atorvastatin
Imdur
Metoprolol 25 BID
Spironolactone
Valsartan 80mg PO QD
-Nitro PRN
Severe s/p bioprosthetic AVR 2015
IDDM
-at home patient is on Lantus 25 units qhs and lispro 15 units AC
-while in-house will give Lantus 15 untis qhs; Lispro 7 units AC - adjust as needed
-ISS
PAD
-CORE MAN Asa/Plavix/Statin
Chronic Pain and Opiate Dependence
-CORE MAN Oxycodone
DVT PPx Hep subQ
DNR - discussed with family at bedside on admission
76 minutes spent on patient care
[2023-12-31] MEDS: LASIX 40 MG IV (19:38)
--- NOTE | 2023-12-31 20:45 | PTCARENOTE ---
Pt arrived to [facility] from ED and ambulated with x1 assist from stretcher to bed. Pt is AAOx3, no complaints of pain at this time. Bed alarm in place d/t frequent standing to urinate and unsteady gait. Call wilcox within reach, bed in lowest
position. BP elevated at 171/71; HS dose of toprol XL 25mg provided to pt.
[2023-12-31] MEDS: TOPROL XL 25 MG PO (21:18)
[2023-12-31] MEDS: HEPARIN 5000 UNITS SC (21:18)
[2023-12-31 21:26] LABS: Glucose - Point of Care 121 mg/dl (70-99)
[2023-12-31] MEDS: ROXICODONE 10 MG PO (21:52)
[2023-12-31] MEDS: LANTUS 0.15 UNITS SC (21:52)
[2023-12-31 23:17] LABS: Troponin I 0.046 ng/ml
--- NOTE | 2023-12-31 23:30 | PTCARENOTE ---
Pt rang call wilcox and told this RN that he was having 10/10 pain in the center of his chest. Stat EKG performed showing sinus rhythm with a first degree heart block. PRN Nitrostat provided to pt at 2321 and reduced pain to 7/10. Second dose of
PRN Nitrostat provided at 2331 and pain decreased to 6/10. 2300 Troponin result was 0.046. CLOTH BALER Nohemi notified of above results and pt's change in condition. 1x IV Protonix 40mg provided to pt as well as PRN IV Morphine 1mg q4h. Pt reports
that pain is 'better now'. Will continue to monitor for increased chest pain and follow current care plan.
[2023-12-31] MEDS: MORPHINE SULFATE 1 MG IV (23:59)
[2024-01-01] VITALS (8 sets, daily range): BP systolic 92–156; BP diastolic 50–96; O2SAT 99; BMI 30.9
[2024-01-01] MEDS: NSS (PRESERVATIVE FREE) 10 ML IV (00:32)
[2024-01-01] MEDS: PROTONIX IV 40 MG IV (00:32)
[2024-01-01 06:33] LABS: Hematocrit 34.1 % (39.0-52.0); Hemoglobin 11.9 g/dL (13.0-18.0); Mean Corp Hgb Conc. 34.9 g/dL (33.0-37.0); Mean Corpuscular Hgb 31.9 pg (27.0-31.0); Mean Corpuscular Volume 91.4 fL (80.0-94.0); Mean Platelet Volume 10.8 fL (7.4-10.4); Platelet Count 206 10^3/uL (130-400); Red Blood Cell Count 3.73 10^6/uL (4.70-6.10)
[2024-01-01 07:00] LABS: Blood Urea Nitrogen 15 mg/dl (9-20); Calcium 9.7 mg/dl (8.4-10.2); Carbon Dioxide 26 mmol/L (22-30); Chloride 106 mmol/L (98-107); Estimated Creatinine Clearance 55 ml/min; Glucose 157 mg/dl (70-99); Potassium 4.3 mmol/L (3.5-5.1); Sodium 143 mmol/L (135-145); eGFR 56.23
[2024-01-01 07:02] LABS: Troponin I 0.087 ng/ml
--- NOTE | 2024-01-01 07:46 | W.PN.HOSP.TC ---
Today's Communication/Plan
-
see bold
Assessment / Plan
Assessment / Plan
#Acute on chronic heart failure with a reduced ejection fraction
EF 30-35%
Continue Lasix 40 mg IV twice daily, trend creatinine, trend daily weights
Continue GM DT with metoprolol succinate, spironolactone, valsartan
Considering SGLT2
#Coronary artery disease with chest pain
Cardiology recommends medical management
Continue aspirin, Plavix, statin, beta-markus Imdur
#Type 2 diabetes
A1C 7.5
Continue Lantus 15 units at bedtime, NovoLog 7 units AC 3 times daily, sliding scale insulin
Hold metformin while in the hospital, resume upon discharge
#Chronic pain syndrome with daily opioid use and dependency
Continue home pain meds, add MiraLAX
DVT prophylaxis�change subcu heparin to subcu Lovenox
DNR
Updated grandson at bedside 12/31
Total time spent to see the patient on the floor, examine the patient, review data and lab results, discuss treatment plan with patient, nursing staff around 45 minutes.
Physical Exam
General: No acute distress
HEENT: Normocephalic, Atraumatic, EOMI, MMM
Respiratory: Clear to Auscultation bilaterally
Cardiac: Normal S1/S2, Regular Rate and Rhythm
GI: Soft, Nontender, Nondistended, Normal Bowel Sounds
Extremities: No Clubbing, Cyanosis
Bilateral lower extremity edema noted
Neuro: Nonfocal/Grossly Intact
Psych: Calm, Cooperative
Derm: No Visible lesions
Anticipated Discharge: 24 - 48 hours
Subjective/Interval History
-
Date of Service: January 01, 2024
Patient reports his shortness of breath has improved dramatically, almost at baseline. Chest pain resolved. No cough. No fever, no vomiting.
Objective Data
-
Labs:
Laboratory Results
01/01/24
06:13
WBC 9.0
Hgb 11.9 L
Hct 34.1 L
Plt Count 206
Sodium 143
Potassium 4.3
Chloride 106
Carbon Dioxide 26
BUN 15
Creatinine 1.3
Glucose 157 H
Calcium 9.7
Vital Signs:
Vital Signs
Temp Pulse Resp BP Pulse Ox
97.6 F 61 20 156/88 95
01/01/24 07:38 01/01/24 07:38 01/01/24 07:38 01/01/24 07:38 01/01/24 07:38
I&O
12/31/23 01/01/24 01/02/24
06:59 06:59 06:59
Intake Total 480 / 480
Output Total 1525 / 1525
Balance -1045 / -1045
[2024-01-01 07:47] LABS: Glucose - Point of Care 178 mg/dl (70-99)
[2024-01-01] MEDS: ASPIR LOW (ENTERIC COATED) 81 MG PO (08:12)
[2024-01-01] MEDS: DIOVAN 80 MG PO (08:12)
[2024-01-01] MEDS: ALDACTONE 12.5 MG PO (08:12)
[2024-01-01] MEDS: TOPROL XL 25 MG PO ×2 (08:13→19:50)
[2024-01-01] MEDS: PLAVIX 75 MG PO (08:13)
[2024-01-01] MEDS: IMDUR (EXTENDED RELEASE) 30 MG PO (08:13)
[2024-01-01] MEDS: HEPARIN 5000 UNITS SC (08:13)
[2024-01-01] MEDS: NOVOLOG FLEXPEN 7 UNITS SC ×3 (08:14→17:29)
[2024-01-01] MEDS: NOVOLOG FLEXPEN-LOW RESISTANCE 1 UNITS SC (08:14)
[2024-01-01] MEDS: LASIX 40 MG IV ×2 (08:15→15:39)
[2024-01-01] MEDS: ROXICODONE 10 MG PO ×4 (08:17→21:40)
[2024-01-01] MEDS: MIRALAX 17 GRAMS PO (08:17)
[2024-01-01 09:29] LABS: Glycohemoglobin (HgbA1c) 7.5 % (4.0-5.6)
--- NOTE | 2024-01-01 10:52 | CON.CAR ---
Addendum entered and electronically signed by Sky Roland MD 01/01/24 12:51:
78 yo male with complex CAD, ICM EF 30-35%, chronic HFrEF admitted with acute on chronic HFrEF. He complains of SOB and edema. Exam with RRR, no murmurs, 1+ LE edema. Cr 1.3.
Continue lasix 40mg IV bid with close monitoring of labs, tele. Perhaps on d/c, we will try torsemide 40mg daily.
Case mgmt consulted for SGLT2i pricing.
Original Note:
Consultation
Consultation Request
Date/Time Consultation Requested: 12/31/2023 20:20
Date/Time Consultation Performed: 01/01/2024 10:00
Requesting Provider: Dr. Ronquillo
Performing Provider: RAMONA Hartley for Dr. Roland
Reason for Consultation: Acute heart failure exacerbation
Medical History
-
Chief Complaint: SHortness of breath
History of Present Illness:
Bhavik Spring is a 78-year-old male (formerly known to Dr. Salas), with CAD s/p CABG (WEBB to LAD, Sequential SVG to OM1 --> OM2 --> RPDA) 2010, with subsequent PCI of the ostial SVG, complicated by ISR requiring repeat PCI, then PTCA 11/2022,
ICM (LVEF 25%), chronic HFrEF, severe s/p bioprosthetic AVR 2015, HTN, HLD, PAD, IDDM admitted with shortness of breath. He endorses associated chest pain. This has been ongoing for several days. For the last 2 weeks he has not been performing
his daily weight. He states this was due to 'it always being the same'. He has associated lower extremity edema and orthopnea. He reports medication adherence with furosemide. Regarding his chest pain, it is midsternal anterior sharp pain.
Nothing makes it better or worse. He is currently chest pain-free. He is not having shortness of breath at rest.
Past Medical History
Past Medical History: CAD (CABG), CHF (ICM), HTN, Hypercholesterolemia, IDDM, PA, Valvular Disease (aortic stenosis S/P AVR) and Other (LBBB)
Past Surgical History: Cardiac (CABG, bio-AVR) and Tonsilectomy
Social History
Tobacco: Former Smoker
Alcohol: None
Personal:
Living: With Family
Employment: Retired
Family History
Family History: Early CAD (none)
Allergies / Home Medications
Allergy/AdvReac Type Severity Reaction Status Date / Time
lisinopril Allergy cough Verified 12/31/23 15:37
�Medication �Instructions �Recorded �Confirmed �Type
multivitamin 1 ea PO DAILY Supplement 11/19/17 12/31/23 History
aspirin 81 mg tablet,delayed 81 mg PO DAILY Blood clot 01/20/22 12/31/23 History
release prevention/tx
atorvastatin 80 mg tablet 80 mg PO QPM High cholesterol 01/20/22 12/31/23 History
metformin 1,000 mg tablet 1,000 mg PO BID@0800,1700 Diabetes 05/16/22 12/31/23 Rx
#1 tab
nitroglycerin 0.4 mg sublingual 0.4 mg sublingual [id number] PRN 10/16/22 12/31/23 Rx
tablet chest pain #30 tabs
furosemide 40 mg tablet 40 mg PO DAILY #30 tabs 11/30/22 12/31/23 Rx
clopidogrel 75 mg tablet (Plavix) 75 mg PO DAILY Blood Clot 04/04/23 12/31/23 History
Prevention/Tx
metoprolol succinate 25 mg 25 mg PO BID Blood pressure 30 04/07/23 12/31/23 Rx
tablet,extended release 24 hr days #60 tabs
oxycodone 10 mg tablet 10 mg PO QID mod-severe pain #0 04/07/23 12/31/23 Rx
tabs
spironolactone 25 mg tablet 12.5 mg (1/2 x 25 mg) PO DAILY 04/07/23 12/31/23 Rx
Heart disease/condition 30 days
#15 tabs
insulin glargine 100 unit/mL (3 25 unit SC HS Diabetes 11/16/23 12/31/23 History
mL) subcutaneous pen (Lantus
Solostar U-100 Insulin)
valsartan 80 mg tablet 80 mg PO DAILY 11/16/23 12/31/23 History
isosorbide mononitrate 30 mg 30 mg PO DAILY #30 tabs 11/17/23 12/31/23 Rx
tablet,extended release 24 hr
insulin lispro 100 unit/mL 15 unit SC AC 12/31/23 12/31/23 History
subcutaneous pen (Admelog SoloStar
U-100 Insulin lispro)
Review of Systems
-
History Source: Patient
All other systems: Negative unless noted
Constitutional: No Symptoms
EENT: No Symptoms
Respiratory: Trouble Breathing
Cardiac: Chest Pain
Abdomen/GI: No Symptoms
: No Symptoms
Musculoskeletal: No Symptoms
Skin: No Symptoms
Neurological: No Symptoms
Endocrine: No Symptoms
Hematologic/Lymphatic: No Symptoms
Physical Exam
Vital Signs
Temp Pulse Resp BP Pulse Ox
97.6 F 61 20 156/88 96
01/01/24 07:38 01/01/24 08:15 01/01/24 07:38 01/01/24 08:15 01/01/24 09:40
Lab Results
01/01/24 06:13
01/01/24 06:13
Troponin I 0.087 ng/ml H* D 01/01/24 06:13
Ocx-[id number]-[id number] Pept 2920 pg/ml 12/31/23 17:50
Physical Exam
General: Well Developed, Well Nourished, No Apparent Distress and Comfortable
HEENT: Normocephalic, Anicteric and Moist Mucous Membranes
Respiratory: Non Labored Respirations
Cardiac: S1/S2, Regular Rhythm, Murmur and Peripheral Edema
Breast: Deferred by me
GI: Soft, Non Tender, Non Distended and Normal Bowel Sounds
Rectal: Deferred by Provider
Musculoskeletal: No Clubbing, No Cyanosis and Edema
Skin: Warm and Dry
Hematologic/Lymphatic: No Lymphadenopathy
Psych: Calm
Impression / Plan
-
BACKGROUND: 78M with CAD s/p CABG (WEBB to LAD, Sequential SVG to OM1 --> OM2 --> RPDA) 2010, with subsequent PCI of the ostial SVG, complicated by ISR requiring repeat PCI, then PTCA 11/2022, ICM (LVEF 25%), chronic HFrEF, severe s/p
bioprosthetic AVR 2015, HTN, HLD, PAD, IDDM admitted with shortness of breath. He endorses associated ch
[employer] Vehicle Sales Consultant: Dr. Ly (formerly Dr. Salas)
IMPRESSION/PLAN:
HFrEF, acute on chronic
-Weight gain, LE edema, and orthopnea
-Diuresis with furosemide 40 mg IV twice daily, this requires intensive monitoring
-LVEF 15-20% (03/2023), 30-35% on most recent study (07/2023)
-GDMT as tolerated
-Beta-markus: Metoprolol succinate 25mg BID
-MRA: Spironolactone 12.5 mg daily
-VICKY/ARB: Valsartan 80 mg
-SGLT2: Can consider
-Diuretic: Furosemide 40 mg to maintain euvolemia
-Trend daily weight, I/O
CAD with chest pain
-Medical mgmt per last cath
-CABG (WEBB to LAD, Sequential SVG to OM1 --> OM2 --> RPDA) 2010
-PCI of the ostial SVG, complicated by ISR requiring repeat PCI, then PTCA 11/2022
Intraventricular conduction delay
Aortic stenosis S/P bioAVR (25 mm bovine) 09/2015, peak/mean gradient of 19/12mmHg (07/2023)
HLD, goal LDL < 55, continue atorvastatin for now, lipid panel pending, he may need transition to rosuvastatin
Type II DM, with hyperglycemia, Hgba1c improved
DATA:
Echocardiogram, 07/28/2023:
Moderately reduced left ventricular systolic function. Left ventricular
ejection fraction is 30-35%.
Global hypokinesis.
Stage II diastolic dysfunction suggestive of abnormal relaxation and increased
filling pressures.
Bioprosthetic aortic valve seen with a peak/mean gradient of 19/12mmHg. No
aortic regurgitation.
Compared to the prior on 04/06/2023 the ejection fraction has increased from 15
to 20% to 30 to 35%.
Cardiac catheterization, 04/06/2023:
1. Right dominant circulation with chronic total occlusion of the entire [place] circulation status post bypass (patent WEBB to LAD, patent sequential SVG to OM1 to OM 2 to RPDA) with moderate to severe diffuse disease within the circumflex and RCA
vessels, prior PCI to the ostium of the saphenous vein graft requiring previous repeat PCI and angioplasty, now with 20-30% ISR lesion.
2. Well-seated #25 bioprosthetic surgical aortic valve with a mean gradient of 16.25 mmHg, aortic valve area of 0.93 cm�. Gradient suggest mild stenosis while valve area is severe. This is suggestive of low-flow, low gradient aortic valve
stenosis versus pseudo stenosis. Gradient is similar to prior cardiac catheterization of 11/26/2022.
3. Moderately elevated filling pressures (LVEDP = 20 mmHg, PCWP = 20 mmHg at 88.5 kg), likely appropriate to mildly elevated given degree of LV dysfunction.
Data Reviewed
-
EKG: Report Reviewed by me (Sinus rhythm, first-degree AV block, LBBB, rate 60)
Radiology: Report Reviewed by me (CXR: Cardiomegaly with increased pulmonary vascularity. Most likely differential diagnostic possibilities would be CHF or atypical acute pulmonary edema.)
Labs: Labs Reviewed by me
Old Records: Reviewed
[2024-01-01 11:42] LABS: Glucose - Point of Care 216 mg/dl (70-99)
[2024-01-01] MEDS: NOVOLOG FLEXPEN-LOW RESISTANCE 2 UNITS SC (12:41)
[2024-01-01 12:57] LABS: Troponin I 0.083 ng/ml
--- NOTE | 2024-01-01 15:30 | CM ---
Addendum entered by Blessing Harry 01/01/24 16:38:
Received consult for cost of Farxiga/Jardiance 10mg- placed call to [facility]- unable to speak with employee representative, unable to check cost in ambulatory orders.
Plan; Will need to call [facility] in AM to get cost of medications.
Original Note:
Patient seen bedside with orion, initial assessment completed. Patient resides in a two story home, 5/6 steps to enter. Patient has a cane for ambulation, history of VN and SNF in past. Patient confirms PCP Santos Weinberg, pharmacy [facility]
[place], confirms prescription coverage- [facility]. Patient denies insecurities at home. CM will continue to follow for all discharge planning needs.
Plan; home, watch for possible VN needs.
[2024-01-01 16:35] LABS: Glucose - Point of Care 263 mg/dl (70-99)
[2024-01-01] MEDS: LIPITOR 80 MG PO (17:28)
[2024-01-01] MEDS: LOVENOX 40 MG SC (17:29)
[2024-01-01] MEDS: NOVOLOG FLEXPEN-LOW RESISTANCE 3 UNITS SC (17:29)
[2024-01-01 21:24] LABS: Glucose - Point of Care 214 mg/dl (70-99)
[2024-01-01] MEDS: LANTUS 0.15 UNITS SC (21:41)
[2024-01-02 03:00] VITALS: BP 147/78
[2024-01-02 04:08] VITALS: BMI 30.2
[2024-01-02 07:24] LABS: Glucose - Point of Care 192 mg/dl (70-99)
[2024-01-02 07:30] VITALS: BP 133/47
[2024-01-02 07:31] LABS: Blood Urea Nitrogen 17 mg/dl (9-20); Calcium 9.2 mg/dl (8.4-10.2); Carbon Dioxide 26 mmol/L (22-30); Chloride 104 mmol/L (98-107); Estimated Creatinine Clearance 54 ml/min; Glucose 164 mg/dl (70-99); Potassium 3.9 mmol/L (3.5-5.1); Sodium 142 mmol/L (135-145); eGFR 56.23
--- NOTE | 2024-01-02 08:35 | W.PN.HOSP.TC ---
Today's Communication/Plan
-
Discharge tomorrow if cleared by cardiology
Assessment / Plan
Assessment / Plan
#Acute on chronic heart failure with a reduced ejection fraction
EF 30-35%
Continue Lasix 40 mg IV twice daily, trend creatinine, trend daily weights
Continue with metoprolol succinate, spironolactone, valsartan
Considering SGLT2
#Coronary artery disease with chest pain
Cardiology recommends medical management
Continue aspirin, Plavix, statin, beta-markus
Stopped Imdur
#Type 2 diabetes
A1C 7.5
Continue Lantus 18 units at bedtime, NovoLog 9 units AC 3 times daily, sliding scale insulin
Hold metformin while in the hospital, resume upon discharge
#Chronic pain syndrome with daily opioid use and dependency
Continue home pain meds, added MiraLAX
DVT prophylaxis�change subcu heparin to subcu Lovenox
DNR
Updated grandson at bedside 12/31
Total time spent to see the patient on the floor, examine the patient, review data and lab results, discuss treatment plan with patient, nursing staff around 40 minutes.
Physical Exam
General: No acute distress
HEENT: Normocephalic, Atraumatic, EOMI, MMM
Respiratory: Clear to Auscultation bilaterally
Cardiac: Normal S1/S2, Regular Rate and Rhythm
GI: Soft, Nontender, Nondistended, Normal Bowel Sounds
Extremities: No Clubbing, Cyanosis
Bilateral lower extremity edema noted
Neuro: Nonfocal/Grossly Intact
Psych: Calm, Cooperative
Derm: No Visible lesions
Anticipated Discharge: Within 24 hours
Subjective/Interval History
-
Date of Service: January 02, 2024
Patient denies shortness of breath at rest, dyspnea with activity. No fever, no chest pain, no vomiting.
Objective Data
-
Labs:
Laboratory Results
01/02/24
06:37
Sodium 142
Potassium 3.9
Chloride 104
Carbon Dioxide 26
BUN 17
Creatinine 1.3
Glucose 164 H
Calcium 9.2
Vital Signs:
Vital Signs
Temp Pulse Resp BP Pulse Ox
98.2 F 60 18 133/47 96
01/02/24 07:30 01/02/24 07:30 01/02/24 07:30 01/02/24 07:30 01/02/24 07:30
I&O
01/01/24 01/02/24 01/03/24
06:59 06:59 06:59
Intake Total 480 / 480 1080 / 1080
Output Total 1525 / 1525 300 / 300
Balance -1045 / -1045 780 / 780
[2024-01-02] MEDS: NOVOLOG FLEXPEN 7 UNITS SC ×2 (09:36→11:59)
[2024-01-02] MEDS: NOVOLOG FLEXPEN-LOW RESISTANCE 1 UNITS SC ×2 (09:37→17:23)
[2024-01-02] MEDS: ALDACTONE 12.5 MG PO (09:38)
[2024-01-02] MEDS: DIOVAN 80 MG PO (09:39)
[2024-01-02] MEDS: TOPROL XL 25 MG PO (09:40)
[2024-01-02] MEDS: PLAVIX 75 MG PO (09:40)
[2024-01-02] MEDS: ASPIR LOW (ENTERIC COATED) 81 MG PO (09:40)
[2024-01-02] MEDS: IMDUR (EXTENDED RELEASE) 30 MG PO (09:40)
[2024-01-02] MEDS: ROXICODONE 10 MG PO ×4 (09:40→21:00)
[2024-01-02] MEDS: LASIX 40 MG IV ×2 (09:41→14:59)
[2024-01-02] MEDS: MIRALAX 17 GRAMS PO (09:41)
[2024-01-02 11:05] LABS: Glucose - Point of Care 235 mg/dl (70-99)
[2024-01-02 11:37] VITALS: BP 117/50
[2024-01-02] MEDS: NOVOLOG FLEXPEN-LOW RESISTANCE 2 UNITS SC (11:58)
--- NOTE | 2024-01-02 14:09 | W.PN.CD ---
Today's Communication / Plan
-
Advance medical therapy
Continue IV BID LASIX another day or so
Na+/Fluid restriction
Stop Imdur (more BB and later more ARB or ARNI)
If co-pay ok add a SGLT2-I
More education
Repeat echo 3 months after on max medical therapy and if EF 35 or less consider BiV ICD or ICD with conduction pacing
Impression / Plan
-
BACKGROUND: 78M with CAD s/p CABG (WEBB to LAD, Sequential SVG to OM1 --> OM2 --> RPDA) 2010, with subsequent PCI of the ostial SVG, complicated by ISR requiring repeat PCI, then PTCA 11/2022, ICM (LVEF 25%), chronic HFrEF, severe s/p
bioprosthetic AVR 2015, HTN, HLD, PAD, IDDM admitted with shortness of breath. He endorses associated ch
Silvering Applicator: Dr. Ly (formerly Dr. Salas)
HFrEF, acute on chronic
-Weight gain, LE edema, and orthopnea
-Diuresis with furosemide 40 mg IV twice daily, this requires intensive monitoring
-LVEF 15-20% (03/2023), 30-35% on most recent study (07/2023)
-GDMT as tolerated
-Beta-markus: Metoprolol succinate 25mg BID => Increased
-MRA: Spironolactone 12.5 mg daily => increased
-VICKY/ARB: Valsartan 80 mg => no change as we diurese but later move to goal dose and perhaps move to ARNI
-SGLT2: I consulted case management for cost and will add if co-pay acceptable
-Diuretic: Furosemide 40 mg to maintain euvolemia
-Trend daily weight, I/O
CAD> stop Imdur to allow more BB. Last cath 03/2023 ALL GRAFTS patent with patent stent and severe [place] disease
IVCD of LBBB, qrs almost 150 ms
- Can consider elective BiV ICD
- LVEF may improve wtih more med rx
Aortic stenosis S/P bioAVR (25 mm bovine) 09/2015, peak/mean gradient of 19/12mmHg (07/2023)
HLD, goal LDL < 55, continue atorvastatin for now, lipid panel pending, he may need transition to rosuvastatin
Type II DM, with hyperglycemia, Hgba1c improved
Subjective:
Feeling better with IV Diuresis
DATA:
Echocardiogram, 07/28/2023:
Moderately reduced left ventricular systolic function. Left ventricular
ejection fraction is 30-35%.
Global hypokinesis.
Stage II diastolic dysfunction suggestive of abnormal relaxation and increased
filling pressures.
Bioprosthetic aortic valve seen with a peak/mean gradient of 19/12mmHg. No
aortic regurgitation.
Compared to the prior on 04/06/2023 the ejection fraction has increased from 15
to 20% to 30 to 35%.
Cardiac catheterization, 04/06/2023:
1. Right dominant circulation with chronic total occlusion of the entire [place] circulation status post bypass (patent WEBB to LAD, patent sequential SVG to OM1 to OM 2 to RPDA) with moderate to severe diffuse disease within the circumflex and RCA
vessels, prior PCI to the ostium of the saphenous vein graft requiring previous repeat PCI and angioplasty, now with 20-30% ISR lesion.
2. Well-seated #25 bioprosthetic surgical aortic valve with a mean gradient of 16.25 mmHg, aortic valve area of 0.93 cm�. Gradient suggest mild stenosis while valve area is severe. This is suggestive of low-flow, low gradient aortic valve
stenosis versus pseudo stenosis. Gradient is similar to prior cardiac catheterization of 11/26/2022.
3. Moderately elevated filling pressures (LVEDP = 20 mmHg, PCWP = 20 mmHg at 88.5 kg), likely appropriate to mildly elevated given degree of LV dysfunction.
Physical Exam
Vital Signs/Labs
Vital Signs
Temp Pulse Resp BP Pulse Ox
97.9 F 56 16 117/50 93
01/02/24 11:37 01/02/24 11:37 01/02/24 11:37 01/02/24 11:37 01/02/24 11:37
01/01/24 01/02/24 01/03/24
06:59 06:59 06:59
Actual Weight 97.721 kg 95.481 kg
01/01/24 06:13
01/02/24 06:37
Magnesium 2.0 mg/dl (1.6-2.3) 01/01/24 06:13
12/31/23
17:50
Cpw-A-Jxwmpxqcfkg Pept 2920
LAB Results
12/31/23 12/31/23 01/01/24
17:50 22:41 06:13
Troponin I 0.033 0.046 H* D 0.087 H* D
01/01/24
12:07
Troponin I 0.083 H*
Physical Exam
Constitutional: No acute distress
EENT: Anicteric and Moist mucous membranes
Cardiovascular: Rhythm & rate is regular and S1S2 is normal
Respiratory: Respiratory effort normal and Lungs clear to auscul.
GI: Soft and Distention absent
Neuro/Psych: AO x 3
Data Reviewed
-
Date of Service: January 02, 2024
[2024-01-02 15:19] VITALS: BP 141/68
--- NOTE | 2024-01-02 16:06 | CM ---
CM consulted for med pricing
Call with [facility] [phone]
Pt had to provide verbal consent for release of info
Entresto 49/51mg BID
30 retail- not covered at local retail, only mail order
90 mail order- $507.75
Jardiance 10 mg QD
30 retail- $150.43
90 mail order- $450.99
Farxiga 10 mg QD
30 retail- $140.30
90 mail order- $429.[address] Frias/TT
[2024-01-02 16:38] LABS: Glucose - Point of Care 191 mg/dl (70-99)
[2024-01-02] MEDS: LOVENOX 40 MG SC (17:22)
[2024-01-02] MEDS: LIPITOR 80 MG PO (17:22)
[2024-01-02] MEDS: NOVOLOG FLEXPEN 9 UNITS SC (17:23)
[2024-01-02 19:33] VITALS: BP 120/54
[2024-01-02] MEDS: TOPROL XL 50 MG PO (20:07)
[2024-01-02 20:45] LABS: Glucose - Point of Care 153 mg/dl (70-99)
[2024-01-02] MEDS: LANTUS 0.18 UNITS SC (21:00)
[2024-01-02 23:27] VITALS: BP 118/81
[2024-01-03 03:26] VITALS: BP 131/58
[2024-01-03 06:00] VITALS: BMI 29.7
[2024-01-03 07:00] VITALS: BP 141/56
[2024-01-03 07:18] LABS: Blood Urea Nitrogen 23 mg/dl (9-20); Calcium 9.4 mg/dl (8.4-10.2); Carbon Dioxide 27 mmol/L (22-30); Chloride 103 mmol/L (98-107); Estimated Creatinine Clearance 48 ml/min; Glucose 148 mg/dl (70-99); Potassium 3.9 mmol/L (3.5-5.1); Sodium 143 mmol/L (135-145); eGFR 56.23
[2024-01-03 07:23] LABS: Glucose - Point of Care 165 mg/dl (70-99)
--- NOTE | 2024-01-03 08:35 | W.PN.HOSP.TC ---
Today's Communication/Plan
-
Discharge today
Assessment / Plan
Assessment / Plan
#Acute on chronic heart failure with a reduced ejection fraction
EF 30-35%
Resolved status post Lasix 40 mg IV twice daily
Cleared by cardiology for discharge on Lasix 40 mg p.o. twice daily, increased from 40 mg p.o. daily
Continue with metoprolol succinate/spironolactone (doses increased by cards), continue valsartan
Considering SGLT2
#Coronary artery disease with chest pain
Cardiology recommends medical management
Continue aspirin, Plavix, statin, beta-markus
Stopped Imdur
#Type 2 diabetes
A1C 7.5
Continue home diabetes medications upon discharge
#Chronic pain syndrome with daily opioid use and dependency
Continue home pain meds, added MiraLAX
DVT prophylaxis�change subcu heparin to subcu Lovenox
DNR
Updated grandson at bedside 12/31
Physical Exam
General: No acute distress
HEENT: Normocephalic, Atraumatic, EOMI, MMM
Respiratory: Clear to Auscultation bilaterally
Cardiac: Normal S1/S2, Regular Rate and Rhythm
GI: Soft, Nontender, Nondistended, Normal Bowel Sounds
Extremities: No Clubbing, Cyanosis
Bilateral lower extremity edema noted
Neuro: Nonfocal/Grossly Intact
Psych: Calm, Cooperative
Derm: No Visible lesions
Anticipated Discharge: Today
Subjective/Interval History
-
Date of Service: January 03, 2024
No SOB, no MORRIS, no CP. No fever, no vomiting.
Objective Data
-
Labs:
Laboratory Results
01/03/24
06:38
Sodium 143
Potassium 3.9
Chloride 103
Carbon Dioxide 27
BUN 23 H
Creatinine 1.3
Glucose 148 H
Calcium 9.4
Vital Signs:
Vital Signs
Temp Pulse Resp BP Pulse Ox
97.8 F 54 12 131/58 95
01/03/24 03:26 01/03/24 03:26 01/03/24 03:26 01/03/24 03:26 01/03/24 03:26
I&O
01/02/24 01/03/24 01/04/24
06:59 06:59 06:59
Intake Total 1080 / 1080 720 / 720
Output Total 300 / 300
Balance 780 / 780 720 / 720
[2024-01-03] MEDS: NOVOLOG FLEXPEN 9 UNITS SC ×2 (08:51→11:52)
[2024-01-03] MEDS: NOVOLOG FLEXPEN-LOW RESISTANCE 1 UNITS SC (08:51)
[2024-01-03] MEDS: ROXICODONE 10 MG PO ×2 (08:52→12:07)
[2024-01-03] MEDS: DIOVAN 80 MG PO (08:52)
[2024-01-03] MEDS: ASPIR LOW (ENTERIC COATED) 81 MG PO (08:52)
[2024-01-03] MEDS: PLAVIX 75 MG PO (08:52)
[2024-01-03] MEDS: ALDACTONE 25 MG PO (08:52)
[2024-01-03] MEDS: TOPROL XL 50 MG PO (08:52)
[2024-01-03] MEDS: LASIX 40 MG IV (08:53)
[2024-01-03] MEDS: MIRALAX 17 GRAMS PO (08:53)
[2024-01-03 11:40] LABS: Glucose - Point of Care 220 mg/dl (70-99)
[2024-01-03] MEDS: NOVOLOG FLEXPEN-LOW RESISTANCE 2 UNITS SC (11:52)
[2024-01-03 11:55] VITALS: BP 147/55
--- NOTE | 2024-01-03 12:15 | W.PN.CD ---
Today's Communication / Plan
-
Ready for home
Our office will reach out for followup
Impression / Plan
-
BACKGROUND: 78M with CAD s/p CABG (WEBB to LAD, Sequential SVG to OM1 --> OM2 --> RPDA) 2010, with subsequent PCI of the ostial SVG, complicated by ISR requiring repeat PCI, then PTCA 11/2022, ICM (LVEF 25%), chronic HFrEF, severe s/p
bioprosthetic AVR 2015, HTN, HLD, PAD, IDDM admitted with shortness of breath. He endorses associated ch
Tool Profiling Machine Set Up Operator: Dr. Ly (formerly Dr. Salas)
HFrEF, acute on chronic
-Weight gain, LE edema, and orthopnea. Imprpoved weight on admit 98.8 kg and now 94 kg (206.8 pounds)
-Move ot furosemide 40 mg PO twice daily
-LVEF 15-20% (03/2023), 30-35% on most recent study (07/2023)
-GDMT as tolerated
-Beta-markus: Metoprolol succinate 25mg BID => Increased
-MRA: Spironolactone 12.5 mg daily => increased
-VICKY/ARB: Valsartan 80 mg => no change as we diurese but later move to goal dose and perhaps move to ARNI
-SGLT2: I consulted case management for cost and will add if co-pay acceptable => see below, will discuss as outpatient
-Diuretic: Furosemide 40 mg to maintain euvolemia
-Trend daily weight, I/O
CAD> stopped Imdur to allow more BB. Last cath 03/2023 ALL GRAFTS patent with patent stent and severe [place] disease
IVCD of LBBB, qrs almost 150 ms
- Can consider elective BiV ICD
- LVEF may improve with more med rx
Aortic stenosis S/P bioAVR (25 mm bovine) 09/2015, peak/mean gradient of 19/12mmHg (07/2023)
HLD, goal LDL < 55, continue atorvastatin for now, lipid panel pending, he may need transition to rosuvastatin
Type II DM, with hyperglycemia, Hgba1c improved
Subjective:
Feeling better with IV Diuresis. Ready for home
DATA:
Case management found:
Entresto 49/51mg BID
30 retail- not covered at local retail, only mail order
90 mail order- $507.75
Jardiance 10 mg QD
30 retail- $150.43
90 mail order- $450.99
Farxiga 10 mg QD
30 retail- $140.30
90 mail order- $429.70
Echocardiogram, 07/28/2023:
Moderately reduced left ventricular systolic function. Left ventricular
ejection fraction is 30-35%.
Global hypokinesis.
Stage II diastolic dysfunction suggestive of abnormal relaxation and increased
filling pressures.
Bioprosthetic aortic valve seen with a peak/mean gradient of 19/12mmHg. No
aortic regurgitation.
Compared to the prior on 04/06/2023 the ejection fraction has increased from 15
to 20% to 30 to 35%.
Cardiac catheterization, 04/06/2023:
1. Right dominant circulation with chronic total occlusion of the entire [place] circulation status post bypass (patent WEBB to LAD, patent sequential SVG to OM1 to OM 2 to RPDA) with moderate to severe diffuse disease within the circumflex and RCA
vessels, prior PCI to the ostium of the saphenous vein graft requiring previous repeat PCI and angioplasty, now with 20-30% ISR lesion.
2. Well-seated #25 bioprosthetic surgical aortic valve with a mean gradient of 16.25 mmHg, aortic valve area of 0.93 cm�. Gradient suggest mild stenosis while valve area is severe. This is suggestive of low-flow, low gradient aortic valve
stenosis versus pseudo stenosis. Gradient is similar to prior cardiac catheterization of 11/26/2022.
3. Moderately elevated filling pressures (LVEDP = 20 mmHg, PCWP = 20 mmHg at 88.5 kg), likely appropriate to mildly elevated given degree of LV dysfunction.
Physical Exam
Vital Signs/Labs
Vital Signs
Temp Pulse Resp BP Pulse Ox
98.3 F 52 16 147/55 99
01/03/24 11:55 01/03/24 11:55 01/03/24 11:55 01/03/24 11:55 01/03/24 11:55
01/02/24 01/03/24 01/04/24
06:59 06:59 06:59
Actual Weight 95.481 kg 93.95 kg
01/01/24 06:13
01/03/24 06:38
Magnesium 2.0 mg/dl (1.6-2.3) 01/01/24 06:13
12/31/23
17:50
Vch-H-Wbkgxsuvyil Pept 2920
LAB Results
12/31/23 12/31/23 01/01/24
17:50 22:41 06:13
Troponin I 0.033 0.046 H* D 0.087 H* D
01/01/24
12:07
Troponin I 0.083 H*
Physical Exam
Constitutional: No acute distress
EENT: Anicteric
Cardiovascular: Rhythm & rate is regular, Pedal edema is absent, Systolic murmur present and S1S2 is normal
Respiratory: Respiratory effort normal and Lungs clear to auscul.
GI: Soft and Distention absent
Neuro/Psych: AO x 3
Data Reviewed
-
Date of Service: January 03, 2024
--- NOTE | 2024-01-03 13:05 | CM ---
CM reviewed chart and likely dc today
Per therapy, no dc needs
Bedside meeting with pt
IMM verbally reviewed- copy provided
Family bedside
Discharge Disposition- home, no needs
--- NOTE | 2024-01-03 13:22 | W.DCSUMMARY ---
Discharge Summary
Discharge Data
Date of Admission: 12/31/23
Date of Discharge: 01/03/24
-
Pending Results: No
Hospital Course
Discharge diagnosis:
Acute on chronic heart failure with reduced ejection fraction
Coronary artery disease with chest pain
Type 2 diabetes, controlled
Chronic pain syndrome with daily opioid use and dependency
Consults: Cardiology
Hospital course:
78-year-old male with a past medical history of CHF, CAD, type 2 diabetes, and chronic pain syndrome was admitted for shortness of breath and chest pain. Patient was found to have acute heart failure with reduced ejection fraction. He was seen in
conjunction with cardiology. He was diuresed with Lasix 40 mg IV twice daily.
For patient's chest pain, he has known coronary artery disease. Cardiology recommends medical management. He was continued on aspirin, Plavix, statin, metoprolol. His chest pain resolved. Cardiology recommends discontinuing Imdur, as his
metoprolol succinate and spironolactone doses have been increased.
After several days, patient's shortness of breath resolved, his dyspnea with activity resolved. He did not have any recurrence of chest pain. He is medically stable and cleared by cardiology for discharge on Lasix 40 mg p.o. twice daily, increased
from his previous dose of 40 mg p.o. daily. He needs to follow-up with his primary care doctor in 1 week, and cardiology in the office in 2-3 weeks.
Disposition: Home Self-care
Discharge planning required 41-minutes
Discharge Plan
-
Patient Disposition: Home (Routine Discharge)
Discharge Diagnosis/Procedures: Heart failure, chest pain, coronary artery disease, controlled type 2 diabetes
Condition: Fair
Diet: Low Fat, Low Cholesterol, Low Sodium and Diabetic, Carb Controlled
Activity: As tolerated
Driving Restrictions: As prior to admission
Specialty Instructions: Weigh Daily- Call MD for wt gain/loss 3 lbs overnight/5 lbs in 1 week
Activity Restrictions/Additional Instructions:
Cardiology recommends you be discharged on Lasix 40 mg p.o. twice a day.
Follow-up with your primary care doctor in 1 week, and your usual [facility] in 2-3 weeks.
Instructions: *CBC Heart Failure Instructions
Referrals:
Santos Weinberg MD [Family Provider] - in one week
Prescriptions:
New
metoprolol succinate [Toprol XL] 50 mg tablet extended release 24 hr
50 mg PO BID Qty: 60 0RF
furosemide [Lasix] 40 mg tablet
40 mg PO BID Qty: 60 0RF
Continued
multivitamin 1 EACH tablet
1 ea PO DAILY
atorvastatin 80 mg tablet
80 mg PO QPM
aspirin 81 mg Tablet,Delayed Release (Dr/Ec)
81 mg PO DAILY
metformin 1,000 MG tablet
1,000 mg PO BID@0800,1700 Qty: 1 0RF
nitroglycerin 0.4 mg Tablet, Sublingual
0.4 mg sublingual [id number] PRN (Reason: chest pain) Qty: 30 0RF
clopidogrel [Plavix] 75 mg Tablet
75 mg PO DAILY
oxycodone 10 MG tablet
10 mg PO QID Qty: 0 0RF
Patient Comments:
12/31/2023: last filled 12/21/23, 120 tabs for 30 days from [facility][id number]
valsartan 80 mg Tablet
80 mg PO DAILY
insulin glargine [Lantus Solostar U-100 Insulin] 300 UNITS/3 ML insulin pen
25 unit SC HS
insulin lispro [Admelog SoloStar U-100 Insulin] 100 unit/mL insulin pen
15 unit SC AC
Changed
spironolactone 25 mg Tablet
25 mg PO DAILY 30 Days Qty: 30 0RF
Discontinued
metoprolol succinate 25 mg Tablet Extended Release 24 Hr
25 mg PO BID 30 Days Qty: 60 0RF
isosorbide mononitrate 30 mg Tablet Extended Release 24 Hr
30 mg PO DAILY Qty: 30 0RF
furosemide 40 mg tablet
40 mg PO DAILY
Discharge Orders:
Discharge Patient (As Directed); Ordered 01/03/24
Ordered By: Nick Ambriz
Discharge Date and Time
Discharge Date/Time: 01/03/24 13:56
Print Language: CZECH
--- NOTE | 2024-01-04 10:11 | W.HF.CON ---
Heart Failure
- LV Function
Left ventricular function study result: LV Ejection fraction </= 35% (ECHO 07/28/23)
Ejection Fraction Percentage: 30-35
- ARNI
Patient already on ARNI: No
Heart Failure ARNI Contraindication: Patient Refusal
- ACEI/ARB
Patient already on ACEI/ARB: Yes
- Beta Sheela
Patient already on Evidence Based Beta Sheela: Yes
- Mineralocorticord Receptor Antagonist
Patient already on MRA: Yes
- SGLT-2 Inhibitor
Patient already on SGLT-2 Inhibitor: No
Heart Failure SGLT-2 Inhibitor Contraindication: Patient Refusal
- NYHA CHF Classification
NYHA CHF Classification Level: Class III - Symptoms w/ min exertion, interferes w/ nml daily activity
- ACC/AHA Stage
ACC/AHA Stage: Stage C: Symptomatic Heart Failure
== END 2024-01-03 13:56 | disposition home or self-care (01) | DRG 291 ==
LOC: 4 WEST ACU 19:48
PROVIDERS: Nurse Practitioner Gerontology; ADMITTING PHYSICIAN Student in an Organized Health Care Education/Training Program; ATTENDING PHYSICIAN Family Medicine; CONSULT PHYSICIAN Internal Medicine; EMERGENCY PHYSICIAN Emergency Medicine; FAMILY PHYSICIAN Family Medicine
DX: I11.0 Hypertensive heart disease with heart failure (principal); I50.23 Acute on chronic systolic (congestive) heart failure; F11.20 Opioid dependence, uncomplicated; I25.10 Atherosclerotic heart disease of native coronary artery without angina pectoris; G89.4 Chronic pain syndrome; E11.42 Type 2 diabetes mellitus with diabetic polyneuropathy; E11.65 Type 2 diabetes mellitus with hyperglycemia; E11.51 Type 2 diabetes mellitus with diabetic peripheral angiopathy without gangrene; Z79.84 Long term (current) use of oral hypoglycemic drugs; I73.9 Peripheral vascular disease, unspecified; Z95.1 Presence of aortocoronary bypass graft; I25.5 Ischemic cardiomyopathy; I35.0 Nonrheumatic aortic (valve) stenosis; Z95.5 Presence of coronary angioplasty implant and graft; Z87.891 Personal history of nicotine dependence; Z88.8 Allergy status to other drugs, medicaments and biological substances; Z79.82 Long term (current) use of aspirin; Z79.02 Long term (current) use of antithrombotics/antiplatelets; Z95.3 Presence of xenogenic heart valve; Z79.4 Long term (current) use of insulin; I44.7 Left bundle-branch block, unspecified; I25.2 Old myocardial infarction; E78.00 Pure hypercholesterolemia, unspecified; Z79.899 Other long term (current) drug therapy; Z66 Do not resuscitate; F32.A Depression, unspecified; K21.9 Gastro-esophageal reflux disease without esophagitis; I45.9 Conduction disorder, unspecified
CPT/HCPCS: 71045; 80048; 80053; 82962; 83036; 83735; 83880; 84484; 85025; 85027; 93005; 96374; 97161; 97165; 99285

== ENCOUNTER → 2024-02-26 08:10 | Outpatient (REF) | payer MEDICARE, OTHER, SELFPAY | LOC: HWRCS 08:10 | PROVIDERS: ATTENDING PHYSICIAN Internal Medicine Cardiovascular Disease; FAMILY PHYSICIAN Family Medicine | DX: I50.20 Unspecified systolic (congestive) heart failure (principal) | CPT/HCPCS: 93306 ==

== ENCOUNTER 2024-03-16 19:26 | Inpatient (IN) | payer MEDICARE, OTHER, SELFPAY ==
[2024-03-16] VITALS (19 sets, daily range): BP systolic 114–164; BP diastolic 43–97
[2024-03-16 13:51] LABS: % Basophils 0.3 % (0-2); % Eosinophils 0.1 % (0-6); % Immature Granulocytes 0.6 % (0-0.5); % Lymphocytes 8.1 % (20.5-51.1); % Monocytes 3.1 % (1.7-9.3); % Neutrophils 87.8 % (42.2-75.2); Absolute Immature Granulocytes 0.1 10^3/uL (0-0.05); Absolute Lymphocytes 1.1 10^3/uL (1.2-3.4); Absolute Monocytes 0.4 10^3/uL (0.1-0.6); Hematocrit 36.2 % (39.0-52.0); Hemoglobin 12.2 g/dL (13.0-18.0); Mean Corp Hgb Conc. 33.7 g/dL (33.0-37.0); Mean Corpuscular Hgb 30.6 pg (27.0-31.0); Mean Corpuscular Volume 90.7 fL (80.0-94.0); Mean Platelet Volume 11.2 fL (7.4-10.4); Nucleated Red Blood Cells % 0 % (-); Platelet Count 236 10^3/uL (130-400); Red Blood Cell Count 3.99 10^6/uL (4.70-6.10); Red Cell Dist. Width 12.8 % (11.5-14.5); White Blood Cell Count 13.7 10^3/uL (4.8-10.8)
[2024-03-16 14:04] LABS: ALT (SGPT) 19 U/L (0-50); AST (SGOT) 25 U/L (17-59); Albumin 4.5 g/dl (3.5-5.0); Alkaline Phosphatase 85 U/L (38-126); Blood Urea Nitrogen 55 mg/dl (9-20); Calcium 9.5 mg/dl (8.4-10.2); Carbon Dioxide 22 mmol/L (22-30); Chloride 97 mmol/L (98-107); Glucose 298 mg/dl (70-99); Potassium 4.8 mmol/L (3.5-5.1); Sodium 137 mmol/L (135-145); Total Bilirubin 0.8 mg/dl (0.2-1.3); Total Protein 6.8 g/dl (6.3-8.2); eGFR 29.91
[2024-03-16 14:21] LABS: Troponin I 0.076 ng/ml
--- NOTE | 2024-03-16 15:04 | ED.GENMED ---
History of Present Illness
<Jolly Ann PA-C - Last Filed: 03/17/24 01:19>
General
Chief Complaint: Cardiac Symptoms
Source: patient
Exam Limitations: none
Time Seen by Provider: 03/16/24 14:44
Nursing documentation reviewed up to this point in time: agreed with
History of Present Illness
History of Present Illness:
Patient is a 78-year-old male with significant cardiac history including CAD s/p multiple stents, CABG, hypertension, hyperlipidemia, aortic stenosis, CHF, diabetes presenting to the emergency department with chest pain. Patient reports that he
initially noticed chest pain yesterday evening prior to going to bed. This morning�when he got up and moving again pain returned and has been constant and steady since. He describes it as a tightness/pain in his mid chest. No radiation to his
back or shoulders. He does feel that pain is somewhat worse with exertion although no true pleuritic component. However�patient does feel as he is more short of breath than usual. Patient did take 2 nitroglycerin tablets at home around 01/1230
without any improvement in pain. Symptoms were not associated any nausea, diaphoresis, lightheadedness.
Patient denies any recent fever, cough, URI symptoms. No abdominal pain. No recent changes in weight.
Patient does follow with Dr. Frias at [facility] cardiology.
Past History
<Jolly Ann PA-C - Last Filed: 03/17/24 01:19>
Past History
ED Past Medical History: CAD, GERD, HTN, Hypercholesterolemia, NIDDM, MT, Psychiatric (Depression) and Other (chronic pain, diabetic peripheral neuropathy, peripheral arterial disease)
ED Past Surgical History: Cardiac (CABG 2010, aortic valve replacement 2015, cardiac stenting 2018, stent 2022), Tonsilectomy and Other (Xiphoid removal, right lower extremity arteriogram with bypass 2019)
Social History
Tobacco: Former smoker
Alcohol: None
Personal:
Living: with family
Family History
Family History: Other (Reviewed and noncontributory)
Review of Systems
<Jolly Ann PA-C - Last Filed: 03/17/24 01:19>
Review of Systems
Allergies reviewed?: Yes
All Other Systems: ROS reviewed and negative except as documented in HPI and ROS
Phy Exam
<Jolly Ann PA-C - Last Filed: 03/17/24 01:19>
Physical Exam
Physical Exam:
Vitals: Hypertensive, otherwise vital signs stable. Afebrile
General: Patient is well appearing, no acute distress
Skin: Warm and dry, no rashes or lesions
Head: Normocephalic, atraumatic
Eyes: Sclera nonicteric. EOMs intact. No nystagmus.
Throat: Protecting airway
Neck: Normal ROM, no cervical spine tenderness, no meningismus. No JVD
Cardiac: Regular rate and rhythm, no murmurs. No reproducible chest wall tenderness.
Pulm: Lungs clear.
Abdomen: Abdomen soft. No abdominal tenderness.
Extremities: No evidence of cyanosis or edema. Palpable DP pulses bilateral
Neuro: AAOx3. Grossly intact.
Psychiatric: Normal affect.
Course
<Jolly Ann PA-C - Last Filed: 03/17/24 01:19>
Orders/Labs/Results
Orders:
Orders
03/16/24 12:59
ECG [Electrocardiogram (*1)] Urgent
Reason for Study: Chest Pain
EKG- Treatment ONCE
03/16/24 13:14
CXR2 [CR Chest - 2 Views ] Urgent
Comment:
Reason For Exam: pain
03/16/24 13:23
Complete Blood Count/With Diff Urgent
Comprehensive Metabolic Panel Urgent
Glycohemoglobin (HgbA1c) Urgent
NT-proBNP Urgent
Comment: ADD ON
Troponin I Urgent
03/16/24 Dinner
Cholesterol Lowering
At Your Request: Non-Participating
Cholesterol Lowering: Sodium, 2 Gram
03/16/24 16:04
Electrocardiogram (*1) Urgent
Reason for Study: Chest Pain
EKG- Treatment ONCE
Nitroglycerin Sublingual [Nitrostat (Sublingual)] 0.4 mg SL NOW STA
03/16/24 16:25
Electrocardiogram (*1) Urgent
Reason for Study: Chest Pain
03/16/24 16:44
Nitroglycerin Sublingual [Nitrostat (Sublingual)] 0.4 mg SL NOW STA
03/16/24 17:10
Electrocardiogram (*1) Urgent
Reason for Study: Chest Pain
03/16/24 17:17
EKG [Electrocardiogram (*1)] Urgent
Reason for Study: Abnormal EKG
EKG- Treatment ONCE
03/16/24 17:25
Heparin 4,000 units IV NOW STA
Nitroglycerin 100 mg/250 ml [Nitroglycerin Premix] 100 mg in 250 ml IV NOW
Initial dose in mcg/min, then titrate:: 20
Titrate to keep:: SBP < 160 mmHg
Titrate by mcg/min:: 5 mcg/min, may increase by 10 mcg/min if dose > 20 mcg/min
Frequency of titrations (minutes):: every 3-5 minutes
Maximum dose in mcg/min:: 200
Begin to taper infusion when:: Remained at goal for 2hrs
Taper by mcg/min:: 5 mcg/min
Frequency of taper (minutes) if patient maintains goal:: 30
Taper to off?: Yes
If infusion off & no longer maintaining goal:: Contact Provider
Nursing to Place Non Medication Order As Directed
Physician Order: PTT 6 hours after initial start of Heparin infusion
Above order entered?: Yes
03/16/24 17:30
Heparin 98950 Units/250 ml 25,000 units in 250 ml IV PER PROTOCOL
Weight to be used for heparin protocol in kilograms (kg):: 97.1
Protocol:: Cardiac Tx/Acute Coronary
PTT Goal Range to be used:: PTT 73 to 111 seconds
Order type:: Initial
INITIAL Infusion Dose (UNITS/KG/hr) & then follow protocol:: 12 units/kg/hr
Infusion Dose in UNITS/hr & then follow protocol (UNITS/hr):: 1,000
INFUSION RATE in mL/hr & then follow protocol (mL/hr):: 10
PTT less than or equal to 64 seconds:: Increase rate by 200 units/hr (+ 2 mL/hr)
PTT 64.1 to 72.9 seconds:: Increase rate by 100 units/hr (+ 1 mL/hr)
PTT 73 to 111 seconds:: Target Range. No change in rate.
PTT 111.1 to 130.9 seconds:: Decrease rate by 100 units/hr (- 1 mL/hr)
PTT 131 to 199.9 seconds:: HOLD for 1 hr. Then decrease rate by 200 units/hr (- 2 mL/hr)
PTT greater than or equal to 200 seconds:: HOLD for 2 hrs & Notify Provider. Then decrease by 200 units/hr (-
2 mL/hr)
Lab follow-up:: Each change, PTT q6h until 2 consecutive are therapeutic. Then PTT
daily.
03/16/24 17:35
PTT Urgent
Comment: Obtain baseline before beginning heparin infusion if not already collected
Troponin I Urgent
03/16/24 18:53
Admit/Transfer Patient As Directed
Co-Sign Provider:
Level of Care: Inpatient admission
Assign to:: IVU
Physician / Group: Jd Dsouza
Diagnosis: chest pain, acute on chronic heart failure
Reason for Hospitalization: chest pain, acute on chronic heart failure
Expected length of stay greater than two midnights?: Yes
ELOS- Estimated Length of Stay in days: 3
I certify the patient meets the requirements for IP care: Yes
PRN Pain Medication Management As Directed
May give lesser potent ordered pain med per pt: Yes
preference::
Protocol:: Medication orders for pain may be administered in a
manner that supports deferring to patient preference
when the pt is:
- Requesting an ordered lesser potent pain medication.
Least to most potent pain medications are defined
as: acetaminophen < NSAID < tramadol < opioids
(morphine, oxycodone, hydromorphone).
- Requesting a lesser dose of the same medication IF
ORDERED.
- Requesting a less intrusive route of administration
if both routes are prescribed by the provider (PO <
IV).
03/16/24 18:57
Code Status As Directed
Resuscitation Status: Full Code
03/16/24 20:38
Electrocardiogram (*1) Q6H
Reason for Study: Chest Pain
Comment: at admission and Q3H for total of 3, to be done with each troponin
Metoprolol Xl [Toprol Xl] 50 mg PO BID
Nitroglycerin Sublingual [Nitrostat (Sublingual)] 0.4 mg SL [id number] PRN
Valsartan [Diovan] 80 mg PO BID
03/16/24 20:38
CARDIOLOGY CONSULT Routine
Consulting Provider: Anthony Gibbs
Was physician already notified: Yes
Activity As Directed
Activity Level: Out of Bed-Early Mobility
INT (Intravenous Needle Therapy) As Directed
Comment: maintain peripheral IV access
Intake/ Output As Directed
Frequency: Per unit guidelines
Vital Signs As Directed
Frequency: q4h
Weight As Directed
Frequency: Daily
Ot Eval And Treat Routine
Pt Eval And Treat Routine
Activity Level: Out of Bed-Early Mobility
03/16/24 20:45
Vit C/Vit E/Lutein/Min/Perley-3 [Ocuvite Softgel] 1 cap PO BID
03/16/24 21:01
Troponin I Q3H
Comment: at admit & Q3H for 3 total including ED draws, obtain ECG with each level
03/17/24 02:38
Electrocardiogram (*1) Q6H
Reason for Study: Chest Pain
Comment: at admission and Q3H for total of 3, to be done with each troponin
03/17/24 Breakfast
NPO
Allow oral meds: Yes
Allow clear liquids: No
Cardiovascular Evaluation IN AM
Complete Blood Count/No Diff IN AM
Comprehensive Metabolic Panel IN AM
03/17/24 07:30
Insulin Aspart Pen [Novolog Flexpen] 15 units SC AC
03/17/24 08:00
Aspirin Low Dose EC [Aspir Low (Enteric Coated)] 81 mg PO DAILY
Multivitamin [Theragran] 1 tablet PO DAILY
Spironolactone [Aldactone] 25 mg PO DAILY
03/17/24 08:38
Electrocardiogram (*1) Q6H
Reason for Study: Chest Pain
Comment: at admission and Q3H for total of 3, to be done with each troponin
03/17/24 18:00
Atorvastatin [Lipitor] 80 mg PO QPM
03/18/24 06:00
Complete Blood Count/No Diff IN AM
Comprehensive Metabolic Panel IN AM
03/19/24 06:00
Complete Blood Count/No Diff IN AM
Comprehensive Metabolic Panel IN AM
Abnormal Lab Results
03/16/24 03/16/24
13: 17:35
WBC 13.7 H 10^3/uL
(4.8-10.8)
RBC 3.99 L 10^6/uL
(4.70-6.10)
Hgb 12.2 L g/dL
(13.0-18.0)
Hct 36.2 L %
(39.0-52.0)
MPV 11.2 H fL
(7.4-10.4)
Abs Immat Gran (auto) 0.1 H 10^3/uL
(0-0.05)
Absolute Neuts (auto) 12.0 H 10^3/uL
(1.4-6.5)
Absolute Lymphs (auto) 1.1 L 10^3/uL
(1.2-3.4)
Immature Gran % 0.6 H %
(0-0.5)
Neutrophils % 87.8 H %
(42.2-75.2)
Lymphocytes % 8.1 L %
(20.5-51.1)
Chloride 97 L mmol/L
(98-107)
BUN 55 H mg/dl
(9-20)
Creatinine 2.2 H mg/dL
(0.7-1.3)
Glucose 298 H mg/dl
(70-99)
Troponin I 0.076 H* ng/ml 0.482 H* D ng/ml
03/16/24 13:23
03/16/24 13:23
Vital Signs
Initial and Last Documented VS:
Initial Vital Signs
Temp Pulse Resp BP Pulse Ox
97.4 F 68 16 145/64 97
03/16/24 13:12 03/16/24 13:12 03/16/24 13:12 03/16/24 13:12 03/16/24 13:12
Last Documented Vital Signs
Temp Pulse Resp BP Pulse Ox
97.6 F 67 20 133/56 97
03/16/24 22:34 03/16/24 20:35 03/16/24 22:34 03/16/24 20:35 03/16/24 22:34
<Juan Carlos Robles, - Last Filed: 03/16/24 18:45>
Orders/Labs/Results
Orders:
Orders
03/16/24 12:59
ECG [Electrocardiogram (*1)] Urgent
Reason for Study: Chest Pain
EKG- Treatment ONCE
03/16/24 13:14
CXR2 [CR Chest - 2 Views ] Urgent
Comment:
Reason For Exam: pain
03/16/24 13:23
Complete Blood Count/With Diff Urgent
Comprehensive Metabolic Panel Urgent
Glycohemoglobin (HgbA1c) Urgent
NT-proBNP Urgent
Comment: ADD ON
Troponin I Urgent
03/16/24 Dinner
Cholesterol Lowering
At Your Request: Non-Participating
Cholesterol Lowering: Sodium, 2 Gram
03/16/24 16:04
Electrocardiogram (*1) Urgent
Reason for Study: Chest Pain
EKG- Treatment ONCE
Nitroglycerin Sublingual [Nitrostat (Sublingual)] 0.4 mg SL NOW STA
03/16/24 16:25
Electrocardiogram (*1) Urgent
Reason for Study: Chest Pain
03/16/24 16:44
Nitroglycerin Sublingual [Nitrostat (Sublingual)] 0.4 mg SL NOW STA
03/16/24 17:10
Electrocardiogram (*1) Urgent
Reason for Study: Chest Pain
03/16/24 17:17
EKG [Electrocardiogram (*1)] Urgent
Reason for Study: Abnormal EKG
EKG- Treatment ONCE
03/16/24 17:25
Heparin 4,000 units IV NOW STA
Nitroglycerin 100 mg/250 ml [Nitroglycerin Premix] 100 mg in 250 ml IV NOW
Initial dose in mcg/min, then titrate:: 20
Titrate to keep:: SBP < 160 mmHg
Titrate by mcg/min:: 5 mcg/min, may increase by 10 mcg/min if dose > 20 mcg/min
Frequency of titrations (minutes):: every 3-5 minutes
Maximum dose in mcg/min:: 200
Begin to taper infusion when:: Remained at goal for 2hrs
Taper by mcg/min:: 5 mcg/min
Frequency of taper (minutes) if patient maintains goal:: 30
Taper to off?: Yes
If infusion off & no longer maintaining goal:: Contact Provider
Nursing to Place Non Medication Order As Directed
Physician Order: PTT 6 hours after initial start of Heparin infusion
Above order entered?: Yes
03/16/24 17:30
Heparin 48649 Units/250 ml 25,000 units in 250 ml IV PER PROTOCOL
Weight to be used for heparin protocol in kilograms (kg):: 97.1
Protocol:: Cardiac Tx/Acute Coronary
PTT Goal Range to be used:: PTT 73 to 111 seconds
Order type:: Initial
INITIAL Infusion Dose (UNITS/KG/hr) & then follow protocol:: 12 units/kg/hr
Infusion Dose in UNITS/hr & then follow protocol (UNITS/hr):: 1,000
INFUSION RATE in mL/hr & then follow protocol (mL/hr):: 10
PTT less than or equal to 64 seconds:: Increase rate by 200 units/hr (+ 2 mL/hr)
PTT 64.1 to 72.9 seconds:: Increase rate by 100 units/hr (+ 1 mL/hr)
PTT 73 to 111 seconds:: Target Range. No change in rate.
PTT 111.1 to 130.9 seconds:: Decrease rate by 100 units/hr (- 1 mL/hr)
PTT 131 to 199.9 seconds:: HOLD for 1 hr. Then decrease rate by 200 units/hr (- 2 mL/hr)
PTT greater than or equal to 200 seconds:: HOLD for 2 hrs & Notify Provider. Then decrease by 200 units/hr (-
2 mL/hr)
Lab follow-up:: Each change, PTT q6h until 2 consecutive are therapeutic. Then PTT
daily.
03/16/24 17:35
PTT Urgent
Comment: Obtain baseline before beginning heparin infusion if not already collected
Troponin I Urgent
03/16/24 18:53
Admit/Transfer Patient As Directed
Co-Sign Provider:
Level of Care: Inpatient admission
Assign to:: IVU
Physician / Group: Jd Dsouza
Diagnosis: chest pain, acute on chronic heart failure
Reason for Hospitalization: chest pain, acute on chronic heart failure
Expected length of stay greater than two midnights?: Yes
ELOS- Estimated Length of Stay in days: 3
I certify the patient meets the requirements for IP care: Yes
PRN Pain Medication Management As Directed
May give lesser potent ordered pain med per pt: Yes
preference::
Protocol:: Medication orders for pain may be administered in a
manner that supports deferring to patient preference
when the pt is:
- Requesting an ordered lesser potent pain medication.
Least to most potent pain medications are defined
as: acetaminophen < NSAID < tramadol < opioids
(morphine, oxycodone, hydromorphone).
- Requesting a lesser dose of the same medication IF
ORDERED.
- Requesting a less intrusive route of administration
if both routes are prescribed by the provider (PO <
IV).
03/16/24 18:57
Code Status As Directed
Resuscitation Status: Full Code
03/16/24 20:38
Electrocardiogram (*1) Q6H
Reason for Study: Chest Pain
Comment: at admission and Q3H for total of 3, to be done with each troponin
Metoprolol Xl [Toprol Xl] 50 mg PO BID
Nitroglycerin Sublingual [Nitrostat (Sublingual)] 0.4 mg SL [id number] PRN
Valsartan [Diovan] 80 mg PO BID
03/16/24 20:38
CARDIOLOGY CONSULT Routine
Consulting Provider: Anthony Gibbs
Was physician already notified: Yes
Activity As Directed
Activity Level: Out of Bed-Early Mobility
INT (Intravenous Needle Therapy) As Directed
Comment: maintain peripheral IV access
Intake/ Output As Directed
Frequency: Per unit guidelines
Vital Signs As Directed
Frequency: q4h
Weight As Directed
Frequency: Daily
Ot Eval And Treat Routine
Pt Eval And Treat Routine
Activity Level: Out of Bed-Early Mobility
03/16/24 20:45
Vit C/Vit E/Lutein/Min/Perley-3 [Ocuvite Softgel] 1 cap PO BID
03/16/24 21:01
Troponin I Q3H
Comment: at admit & Q3H for 3 total including ED draws, obtain ECG with each level
03/17/24 02:38
Electrocardiogram (*1) Q6H
Reason for Study: Chest Pain
Comment: at admission and Q3H for total of 3, to be done with each troponin
03/17/24 Breakfast
NPO
Allow oral meds: Yes
Allow clear liquids: No
Cardiovascular Evaluation IN AM
Complete Blood Count/No Diff IN AM
Comprehensive Metabolic Panel IN AM
03/17/24 07:30
Insulin Aspart Pen [Novolog Flexpen] 15 units SC AC
03/17/24 08:00
Aspirin Low Dose EC [Aspir Low (Enteric Coated)] 81 mg PO DAILY
Multivitamin [Theragran] 1 tablet PO DAILY
Spironolactone [Aldactone] 25 mg PO DAILY
03/17/24 08:38
Electrocardiogram (*1) Q6H
Reason for Study: Chest Pain
Comment: at admission and Q3H for total of 3, to be done with each troponin
03/17/24 18:00
Atorvastatin [Lipitor] 80 mg PO QPM
03/18/24 06:00
Complete Blood Count/No Diff IN AM
Comprehensive Metabolic Panel IN AM
03/19/24 06:00
Complete Blood Count/No Diff IN AM
Comprehensive Metabolic Panel IN AM
Abnormal Lab Results
03/16/24 03/16/24
13:23 17:35
WBC 13.7 H 10^3/uL
(4.8-10.8)
RBC 3.99 L 10^6/uL
(4.70-6.10)
Hgb 12.2 L g/dL
(13.0-18.0)
Hct 36.2 L %
(39.0-52.0)
MPV 11.2 H fL
(7.4-10.4)
Abs Immat Gran (auto) 0.1 H 10^3/uL
(0-0.05)
Absolute Neuts (auto) 12.0 H 10^3/uL
(1.4-6.5)
Absolute Lymphs (auto) 1.1 L 10^3/uL
(1.2-3.4)
Immature Gran % 0.6 H %
(0-0.5)
Neutrophils % 87.8 H %
(42.2-75.2)
Lymphocytes % 8.1 L %
(20.5-51.1)
Chloride 97 L mmol/L
(98-107)
BUN 55 H mg/dl
(9-20)
Creatinine 2.2 H mg/dL
(0.7-1.3)
Glucose 298 H mg/dl
(70-99)
Troponin I 0.076 H* ng/ml 0.482 H* D ng/ml
03/16/24 13:23
03/16/24 13:23
Vital Signs
Initial and Last Documented VS:
Initial Vital Signs
Temp Pulse Resp BP Pulse Ox
97.4 F 68 16 145/64 97
03/16/24 13:12 03/16/24 13:12 03/16/24 13:12 03/16/24 13:12 03/16/24 13:12
Last Documented Vital Signs
Temp Pulse Resp BP Pulse Ox
97.6 F 67 20 133/56 97
03/16/24 22:34 03/16/24 20:35 03/16/24 22:34 03/16/24 20:35 03/16/24 22:34
<Jolly Ann PA-C - Last Filed: 03/17/24 01:19>
MDM/Problems Addressed
Differential Diagnosis Includes:
Not limited to: Acute CHF exacerbation, acute coronary syndrome, pneumonia, muscle strain, costochondritis, etc.
MDM/Problems Addressed:
70-year-old male with chest pain and shortness of breath constant since this morning. Significant history of CAD. Also history of CHF. Patient mildly hypertensive on arrival, otherwise stable vital signs. Physical exam as above. Initial EKG
obtained in triage does show some ST depression in lateral leads although repeat EKG appears improved. Labs initiated in triage reviewed. Leukocytosis of 13.7. LANG. Initial troponin of 0.076. Patient does have what appears to be a chronic
troponin elevation. Given ongoing chest discomfort and EKG changes�will continue to trend. BNP elevated 3510 with chest x-ray which shows some evidence of pulmonary edema although not significantly changed from prior.
Update: Patient given 2 sublingual nitroglycerin with improvement in pain from 10/10 down to 4/10. BP mildly soft. Case was discussed with cardiology. Given ongoing chest discomfort and EKG changes concerning for unstable angina. Repeat troponin
pending. Also possible mild CHF exacerbation although given soft BPs�will avoid Lasix for now. Will initiate nitro drip and heparin drip. Patient will be admitted to the hospitalist service with cardiology consult.
Update: Pending admission�repeat troponin of 0.42. On reassessment that patient states pain is essentially gone at this time. Patient excepted to hospitalist service in stable condition for NSTEMI. Plan for cardiac cath in the morning with
cardiology.
Chronic conditions affecting care:
Hypertension, diabetes, CAD
Acute Exacerbation and/or Progression of Chronic Illness:
Acutely hypertensive, NSTEMI
<Jolly Ann PA-C - Last Filed: 03/17/24 01:19>
*Radiology
Radiology exam reviewed: preliminary read by ED provider (Chest x-ray reviewed by vt-mild pulmonary edema) and radiology read reviewed
*Pulse Oximetry
Patient hypoxic: no
*EKG
Interpreted by ED Provider?: Yes
EKG Intrepretation Date: 03/16/24
Interpretation: abnormal
Comparison EKG: changes noted
Heart Rate: 67
Rate: normal
Rhythm: sinus
Interval: normal QT interval
QRS Pattern: left bundle branch block
Ischemia: ST depression (ST depression in lateral leads)
*Veneer [place]rier Interpretation
Rate: normal
Interpretation: normal
Heart Rate: 66
Rhythm: sinus
<Juan Carlos Robles DO - Last Filed: 03/16/24 18:45>
*Critical Care Note
Total Time (30-74mins, 75-104mins- exclusive of procedures): 40 minutes
<Jolly Ann PA-C - Last Filed: 03/17/24 01:19>
Patient Management
Discussion with other providers: Hospitalist and Medicine And Health Service Manager (Cardiology)
Escalation/DeEscalation of care consider admission/obs:
Admit indicated�NSTEMI with known CAD, plan for cardiac cath in the morning
ED Attending Note
<Jolly Ann PA-C - Last Filed: 03/17/24 01:19>
-
Portions of this chart may have been created with voice recognition software.� Occasional wrong word or��sound alike� substitutions may have occurred due to the inherent limitations of voice recognition software.
<Juan Carlos Robles DO - Last Filed: 03/16/24 18:45>
ED Attending Note
Patient seen and examined by attending physician: Yes
I performed the substantive portion of visit, reviewed & personally made and approve the management plan that is documented in note by myself or YAS[place]Y.: Yes
ED Attending Note:
70-year-old male who presents with chest pain. Patient states he has had chest pain 'all day'. Noted he did call the PA-C that the pain started last night. Patient does feel little bit short of breath. States it does not feel exactly like his
previous angina and he tried to nitro at home and it did not help. He states it typically does help. He does admit that the nitro he got here in the hospital did bring his pain from a 9 to a 6. Exam: Very slight systolic murmur, not tachypneic,
no no lower extremity edema, heart regular. Assessment and plan: EKG does have subtle ST depression in lateral leads a little bit inferior leads. Repeat EKG does show some improvement. Repeat troponin pending. Continue with nitroglycerin to see
if that can resolve the pain. Will consult cardiology.
Discharge Plan
Departure
Patient Disposition: Admit
Date of Disposition: 03/16/24
Time of Disposition: 17:59
Presentation/result/management discussed w/ accepting MD/DO: Hospitalist
Discharge Problem:
Non-ST elevation MT (NSTEMI), Unstable angina
Interventions
Interventions:
*Risk Screen - Suicide Last Done: 03/16/24 20:44
*General Assessment Last Done: 03/16/24 14:37
*Neglect/Abuse Screening Last Done: 03/16/24 13:12
ED- Fall Risk Assessment Last Done: 03/16/24 20:39
*ED COVID-19 Vaccine History Last Done: 03/16/24 14:37
*Nursing Disposition Last Done: 03/16/24 20:39
ED- Pulmonary Assessment Last Done: 03/16/24 14:37
ED- Cardiac Assessment Last Done: 03/16/24 14:37
Discharge Date and Time
Discharge Date/Time: 03/16/24 20:39
[2024-03-16 15:41] LABS: NT-proBNP 3510 pg/ml
[2024-03-16] MEDS: NITROSTAT (SUBLINGUAL) 0.4 MG SL ×2 (16:08→16:54)
[2024-03-16 17:53] LABS: APTT 29.5 Sec (23.4-35.0)
[2024-03-16 18:09] LABS: Troponin I 0.482 ng/ml
--- NOTE | 2024-03-16 18:15 | HPS.HSE ---
Family Physician
-
Family Physician: Santos Weinberg
Chief Complaint
-
chest pains
History of Present Illness
Patient is 78-year-old male with past medical history significant for CAD w/ stents, hypertension, hyperlipidemia, NIDDM, and HFrEF who presented to [facility] for evaluation of chest pains. Patient states after he woke up this morning he
started with chest pain in the epigastric area and was non-radiating. He took approximately 4 SL nitro with minimal relief, so he decided to come to hospital for evaluation. Patient denies any associated nausea, vomiting, dizziness or palpitations.
He reports he weights himself everyday and his weight has been consistent.
Medical History
Past Medical History
Past Medical History: Reports None
Additional Past Medical History:
CAD
hypertension
hyperlipidemia
NIDDM
HFrEF
Past Surgical History: Reports Other
Additional Past Surgical History:
cardiac stents
CABG (2010)
aortic valve replacement (2015)
tonsillectomy
xiphoid removal
RLE arteriogram with bypass (2019)
Social History
Tobacco: Former Smoker (quit in the )
Alcohol: None
Drug: None
Personal:
Living: With Family
Employment: Retired
Family History
Family History: Not pertinent
Allergies / Home Medications
Allergies reflects when Allergies were last updated in [facility].
Home Medications with original date entered in [facility]
Allergy/Medication List:
Allergies
Allergy/AdvReac Type Severity Reaction Status Date / Time
lisinopril Allergy cough Verified 03/16/24 13:11
Home Medications
multivitamin 1 ea PO DAILY Supplement 11/19/17
aspirin 81 mg tablet,delayed release 81 mg PO DAILY Blood clot prevention/tx 01/20/22
atorvastatin 80 mg tablet 80 mg PO QPM High cholesterol 01/20/22
metformin 1,000 mg tablet 1,000 mg PO BID@0800,1700 Diabetes #1 tab 05/16/22
nitroglycerin 0.4 mg sublingual tablet 0.4 mg sublingual [id number] PRN chest pain #30 tabs 10/16/22
clopidogrel 75 mg tablet (Plavix) 75 mg PO DAILY Blood Clot Prevention/Tx 04/04/23
oxycodone 10 mg tablet 10 mg PO QID mod-severe pain #0 tabs 04/07/23
insulin glargine 100 unit/mL (3 mL) subcutaneous pen (Lantus Solostar U-100 Insulin) 20 - 30 unit SC HS Diabetes 11/16/23
valsartan 80 mg tablet 80 mg PO BID Heart Disease/Condition 11/16/23
insulin lispro 100 unit/mL subcutaneous pen (Admelog SoloStar U-100 Insulin lispro) 15 unit SC AC 12/31/23
furosemide 40 mg tablet (Lasix) 40 mg PO BID #60 tabs 01/03/24
metoprolol succinate 50 mg tablet,extended release 24 hr (Toprol XL) 50 mg PO BID #60 tabs 01/03/24
spironolactone 25 mg tablet 25 mg PO DAILY Heart disease/condition 30 days #30 tabs 01/03/24
prednisone 20 mg tablet 20 mg PO UD 03/16/24
vitamins A,C,W-xgae-vrnnll 2,148 mcg-113 mg-45 mg-17.4 mg tablet (PreserVision AREDS) 1 tab PO BID 03/16/24
Review of Systems
-
History Source: Patient
Constitutional: Reports No Symptoms
EENT: Reports No Symptoms
Respiratory: Reports No Symptoms
Cardiac: Reports Chest Pain
Abdomen/GI: Reports No Symptoms
: Reports No Symptoms
Musculoskeletal: Reports No Symptoms
Skin: Reports No Symptoms
Neurological: Reports No Symptoms
Endocrine: Reports No Symptoms
Hematologic/Lymphatic: Reports No Symptoms
Psych: Reports No Symptoms
Physical Exam
Vital Signs
Vital Signs
Temp Pulse Resp BP Pulse Ox
97.4 F 65 19 164/72 97
03/16/24 13:12 03/16/24 15:30 03/16/24 15:30 03/16/24 16:54 03/16/24 15:30
Physical Exam
General: Well Developed, Well Nourished, No Apparent Distress, Comfortable and Conversant
HEENT: NormoCephalic, Moist mucous membranes, Atraumatic, [place] Conjunctivae, Nose Appears Normal and Ears Appear Normal
Respiratory: Clear and Non Labored Respirations
Cardiac: S1/S2 and Regular Rhythm; No Murmur, Rub or Gallop
Breast: Deferred by me
GI: Soft, Non Tender and Normal Bowel Sounds; No Organomegaly
Rectal: Deferred by Provider
Genito-urinary: Deferred by me
Musculoskeletal: No Clubbing, No Cyanosis and No Edema
Skin: Warm and IV/Catheter Site; No Rash
Neuro: Awake, Alert, AO x 3 and Nonfocal/grossly intact
Psych: Calm and Intact Judgment/Insight
Laboratory Results
-
03/16/24 13:23
03/16/24 13:23
Laboratory Results
APTT 29.5 Sec (23.4-35.0) 03/16/24 17:35
Total Bilirubin 0.8 mg/dl (0.2-1.3) 03/16/24 13:23
AST 25 U/L (17-59) 03/16/24 13:23
ALT 19 U/L (0-50) 03/16/24 13:23
Alkaline Phosphatase 85 U/L (38-126) 03/16/24 13:23
Troponin I 0.482 ng/ml H* D 03/16/24 17:35
Data Reviewed
-
Diagnostic Radiology: Report Reviewed by me (CXR: Cardiomegaly with increased pulmonary vascularity, latter acute versus chronic difficult to differentiate.)
Medical Tests (Nuc Med, Echo, EKG etc): Report Reviewed by me (EKG: SINUS RHYTHM WITH 1ST DEGREE A-V BLOCK POSSIBLE LEFT ATRIAL ENLARGEMENT LEFT BUNDLE BRANCH BLOCK)
Lab Data: Labs Reviewed by me (trop 0.076, 0.482; BUN 55, Creat 2.2)
Impression/Plan
-
IMPRESSION/PLAN:
#Chest pain
EKG: SINUS RHYTHM WITH 1ST DEGREE A-V BLOCK
POSSIBLE LEFT ATRIAL ENLARGEMENT
LEFT BUNDLE BRANCH BLOCK
CXR: Cardiomegaly with increased pulmonary vascularity, latter acute versus chronic difficult to differentiate.
Trop: 0.076, 0.482
- Admit to IVU
- Consult cardiology
- Heparin gtt
- Nitro gtt
- NPO at midnight for cath in morning
- hold furosemide and metformin for cath
#acute kidney injury
BUN 55, Creat 2.2
- hold furosemide and metformin
- monitor BMP
#CAD
- continue aspirin, atorvastatin, clopidogrel and spironolactone
#hypertension
- continue metoprolol, spironolactone and valsartan
#hyperlipidemia
- continue atorvastatin
#NIDDM
- AccuChecks AC & HS
- SSI
- continue insulin lispro, insulin glargine
- hold metformin
#HFrEF
ECHO (02/26/2024): Moderately reduced left ventricular systolic function.
Left ventricular ejection fraction is 30-35%.
Bioprosthethetic aortic valve is in place with a peak/mean of 37/22mmHg.
When compared to the previous report 08/16 the transaortic gradients have
increased. Previously peak of 19 mmHg and a mean gradient of 12 mmHg
- daily weights
- hold furosemide
Code status: full code
DVT prophylaxis: heparin gtt
[2024-03-16] MEDS: HEPARIN 4000 UNITS IV (18:18)
[2024-03-16] MEDS: NITROGLYCERIN PREMIX 250 IV (18:19)
[2024-03-16] MEDS: HEPARIN 25000 UNITS/250 ML IV (18:19)
--- NOTE | 2024-03-16 20:35 | PTCARENOTE ---
pt admitted into room 2251. VS and weight obtained. heparin gtt currently infusing @ 1000 units/kg/hr. nitro gtt currently infusing @ 20mcg/min. pt AAOx4. pt denies any pain at this time. VSS. SR on monitor, HR 70s. B/L radial and DP pulses
palpable. heart tones clear. EKG completed. troponin drawn and sent. POX 98% on room air. B/L breath sounds present. bowel sounds present. pt ambulated to BR to void without difficulty. PIV x2 intact and patent. admission questions completed. see
worklist for full assessment, VS, and interventions. pt resting comfortably w family @ bedside.
--- NOTE | 2024-03-16 21:39 | W.PN.UPDATE ---
Update Note
Progress Note Update
Attending addendum
Patient seen independently
78-year-old man with past medical history significant for
CAD w/ stents,
hypertension,
hyperlipidemia,
NIDDM
HFrEF
presents with chest pains. This morning he started with chest pain in the epigastric area and was non-radiating. He took 4 SL nitro with minimal relief, so he decided to come to hospital for evaluation. Patient denies any associated nausea,
vomiting, dizziness or palpitations. He reports he weights himself everyday and his weight has been consistent. Troponin 0.482, BNP 3510. CXR shows Cardiomegaly with increased pulmonary vascularity, (acute versus chronic difficult to
differentiate). He was comfortable at the time of my exam.
Past Medical History
CAD
essential hypertension
hyperlipidemia
NIDDM
HFrEF
Past Surgical History: Reports Other
Additional Past Surgical History:
cardiac stents
CABG (2010)
aortic valve replacement (2015)
tonsillectomy
xiphoid removal
RLE arteriogram with bypass (2019)
Physical Exam
General: Well Developed, Well Nourished, No Apparent Distress, Comfortable and Conversant
HEENT: NormoCephalic, Moist mucous membranes, Atraumatic, [place] Conjunctivae, Nose Appears Normal and Ears Appear Normal
Respiratory: Clear and Non Labored Respirations
Cardiac: S1/S2 and Regular Rhythm; No Murmur, Rub or Gallop
GI: Soft, Non Tender and Normal Bowel Sounds; No Organomegaly
Psych: Calm and Intact Judgment/Insight
Impression/Plan
1. Chest pain - with h/o CAD, stents, and elevated troponin: 0.076, 0.482
- Admit to IVU
- Consulted cardiology
- Heparin gtt
- Nitro gtt
- NPO at midnight for cath in morning
2. acute kidney injury
- hold furosemide and metformin
- monitor BMP
3. CAD
- continue aspirin, atorvastatin, clopidogrel and spironolactone
See PA note for details on
hypertension
hyperlipidemia
NIDDM
HFrEF
Code status: full code
DVT prophylaxis: heparin gtt
[2024-03-16] MEDS: OCUVITE SOFTGEL 1 CAP PO (22:03)
[2024-03-16] MEDS: DIOVAN 80 MG PO (22:03)
[2024-03-16] MEDS: TOPROL XL 50 MG PO (22:03)
[2024-03-16 22:07] LABS: Glucose - Point of Care 319 mg/dl (70-99)
[2024-03-16] MEDS: LANTUS 0.2 UNITS SC (22:07)
[2024-03-16] MEDS: MELATONIN 5 MG PO (22:07)
[2024-03-16] MEDS: ROXICODONE 10 MG PO (23:09)
[2024-03-17] VITALS (12 sets, daily range): BP systolic 131–168; BP diastolic 55–111; BMI 29.9
[2024-03-17 01:21] LABS: APTT 68.7 Sec (23.4-35.0)
--- NOTE | 2024-03-17 03:30 | PTCARENOTE ---
pt VSS, no acute changes in assessment. SR/SB 50s-60s w 1st degree AVB + LBBB. POX 97-98% on room air. Heparin gtt maintained per protocol. Nitro gtt off since ~2300. AM labs drawn and sent. EKG done. pt resting between care.
[2024-03-17 03:42] LABS: Hematocrit 33.9 % (39.0-52.0); Hemoglobin 11.7 g/dL (13.0-18.0); Mean Corp Hgb Conc. 34.5 g/dL (33.0-37.0); Mean Corpuscular Hgb 31.1 pg (27.0-31.0); Mean Corpuscular Volume 90.2 fL (80.0-94.0); Mean Platelet Volume 11.4 fL (7.4-10.4); Platelet Count 233 10^3/uL (130-400); Red Blood Cell Count 3.76 10^6/uL (4.70-6.10); Red Cell Dist. Width 12.9 % (11.5-14.5); White Blood Cell Count 13.1 10^3/uL (4.8-10.8)
[2024-03-17 04:05] LABS: ALT (SGPT) 17 U/L (0-50); AST (SGOT) 28 U/L (17-59); Albumin 3.9 g/dl (3.5-5.0); Alkaline Phosphatase 72 U/L (38-126); Blood Urea Nitrogen 48 mg/dl (9-20); Calcium 9.2 mg/dl (8.4-10.2); Carbon Dioxide 27 mmol/L (22-30); Chloride 100 mmol/L (98-107); Estimated Creatinine Clearance 37 ml/min; Glucose 215 mg/dl (70-99); HDL Cholesterol 30 mg/dl; LDL Cholesterol, Calculated 57 mg/dl; Sodium 140 mmol/L (135-145); Total Bilirubin 0.7 mg/dl (0.2-1.3); Total Cholesterol 120 mg/dl (50-199); Total Protein 6.3 g/dl (6.3-8.2); Triglyceride 165 mg/dl (10-149); Very Low Density Lipoprotein 33 mg/dl (0-30); eGFR 40.75
--- NOTE | 2024-03-17 06:31 | W.PN.HOSP.TC ---
Today's Communication/Plan
-
NPO for cath
Add Plavix if ok with cardiology
[place] prep
Verify pain medicine oxycodone
Assessment / Plan
Assessment / Plan
Physical Exam
General: Well Developed, Well Nourished, No Apparent Distress, Comfortable and Conversant
HEENT: Normocephalic, Moist mucous membranes, Atraumatic, [place] Conjunctivae, Nose Appears Normal and Ears Appear Normal
Respiratory: Clear and Non Labored Respirations
Cardiac: S1/S2 , Murmur.
GI: Soft, Non Tender and Normal Bowel Sounds
Rectal: No bleeding
Genito-urinary: No hematuria
Musculoskeletal: No Clubbing, No Cyanosis and No Edema
Skin: Warm and IV/Catheter Site; No Rash
Neuro: Awake, Alert, AO x 3 and Nonfocal/grossly intact
Psych: Calm and Intact Judgment/Insight.
#Suspect NSTEMI
No chest pain over night
Chest pain on presentation was worse with movements/ not relieved by nitro pills at home.
Trop: 0.076, 0.482 then 1.380
- Heparin gtt
- NPO for cath 03/17
- Last cath 03/2023 ALL GRAFTS patent with patent stent and severe [place] disease
c/w BB, Statin, aspirin
Add Plavix ( seems was in 12/2023 discharge med list) .
- hold furosemide and metformin for cath
Appreciate cardiology input
Primary carton catcher Dr Frias
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
BUN 55, Creat 2.2
Creatinine down to 1.7
- hold furosemide and metformin
- monitor BMP
- Mild IVF for renal prep
#hypertension
- continue metoprolol, spironolactone and valsartan
#hyperlipidemia
- continue atorvastatin
#NIDDM
- AccuChecks AC & HS
- SSI
- continue insulin lispro, insulin glargine
- hold metformin
#Chronic HFrEF
LBBB
ECHO (02/26/2024): Moderately reduced left ventricular systolic function.
Left ventricular ejection fraction is 30-35%.
Bio-prosthethetic aortic valve is in place with a peak/mean of 37/22mmHg.
When compared to the previous report 08/16 the transaortic gradients have
increased. Previously peak of 19 mmHg and a mean gradient of 12 mmHg
- daily weights
- hold furosemide
#Leukocytosis, reactive
No fevers
# COPD without exacerbation
# PAD (peripheral artery disease)
# chronic pain syndrome with opioid dependency
Diabetic Peripheral neuropathy
Total time spent to see the patient, examine the patient, review data and lab results, discuss treatment plan with patient, nursing staff around 55 minutes
Anticipated Discharge: > 48 hours
Subjective/Interval History
-
Date of Service: March 17, 2024
No chest pain over night
No sob
Objective Data
-
Labs:
Laboratory Results
03/17/24 03/17/24 03/17/24
00:55 03:17 08:30
WBC 13.1 H
Hgb 11.7 L
Hct 33.9 L
Plt Count 233
APTT 68.7 H Pending
Sodium 140
Potassium 4.0
Chloride 100
Carbon Dioxide 27
BUN 48 H
Creatinine 1.7 H
Glucose 215 H
Calcium 9.2
Total Bilirubin 0.7
AST 28
ALT 17
Alkaline Phosphatase 72
Vital Signs:
Vital Signs
Temp Pulse Resp BP Pulse Ox
98.0 F 54 18 136/69 96
03/17/24 03:20 03/17/24 03:19 03/17/24 03:20 03/17/24 03:03/17/24 03:20
I&O
03/15/24 03/16/24 03/17/24
06:59 06:59 06:59
Intake Total 250 / 250
Output Total 1050 / 1050
Balance -800 / -800
[2024-03-17 08:22] LABS: Glucose - Point of Care 183 mg/dl (70-99)
[2024-03-17] MEDS: NOVOLOG FLEXPEN-LOW RESISTANCE SC (08:30)
[2024-03-17 08:32] LABS: Glycohemoglobin (HgbA1c) 8.1 % (4.0-5.6)
--- NOTE | 2024-03-17 08:43 | CON.CAR ---
Addendum entered and electronically signed by Sky Roland MD 03/17/24 11:20:
78 yo male with PMH of CAD/CABG, bio-AVR, prior PCI to SVG, ICM, EF 30-35%, is admitted with chest pain. Started yesterday, waxed and waned, but then worsening and did not resolve with SLNG so presented to ED. He is currently chest pain free. Exam
with RRR, II/ systolic murmur at RUSB, trace edema. Cr 1.7. TnI 1.38, and trending.
NSTEMI. ASA 324mg, heparin drip. Cardiac cath today.
LANG. Hold lasix, aldactone, ARB. Trend Cr post cath.
Original Note:
Consultation
Consultation Request
Date/Time Consultation Requested: 03/16/242037
Date/Time Consultation Performed: 03/17/24814
Requesting Provider: Tata Fung NP
Performing Provider: Nayely GREENE for Dr. Roland
Reason for Consultation: NSTEMI
Medical History
-
Chief Complaint: chest discomfort
History of Present Illness:
78 y/o male with LBBB, dyslipidemia, DM2, HFrEF, ICM EF 30-35%, CAD with hx CABG and stenting- most recent stenting 2022, bio AVR with most recent gradients / - increased from prior, PAD - Dr. Deshpande who is here for evaluation of chest discomfort,
which started yesterday AM and was present most of the day. It felt like a dull discomfort. Nitro helped a little. He is also a little SOB. He is CP free at the time of my assessment. EKG shows LBBB (chronic). Trop rising and is now 1.38- next is
pending. He has LANG, which improved overnight. He is in no distress at the time of my assessment.
Past Medical History
Past Medical History: CAD, CHF, Hypercholesterolemia and NIDDM
Social History
Tobacco: Former Smoker
Personal:
Living: With Family
Family History
Family History: Reviewed & Not Pertinent
Allergies / Home Medications
Allergy/AdvReac Type Severity Reaction Status Date / Time
lisinopril Allergy cough Verified 03/16/24 13:11
�Medication �Instructions �Recorded �Confirmed �Type
multivitamin 1 ea PO DAILY Supplement 11/19/17 03/16/24 History
aspirin 81 mg tablet,delayed 81 mg PO DAILY Blood clot 01/20/22 03/16/24 History
release prevention/tx
atorvastatin 80 mg tablet 80 mg PO QPM High cholesterol 01/20/22 03/16/24 History
metformin 1,000 mg tablet 1,000 mg PO BID@0800,1700 Diabetes 05/16/22 03/16/24 Rx
#1 tab
nitroglycerin 0.4 mg sublingual 0.4 mg sublingual [id number] PRN 10/16/22 03/16/24 Rx
tablet chest pain #30 tabs
clopidogrel 75 mg tablet (Plavix) 75 mg PO DAILY Blood Clot 04/04/23 03/16/24 History
Prevention/Tx
oxycodone 10 mg tablet 10 mg PO QID mod-severe pain #0 04/07/23 03/16/24 Rx
tabs
insulin glargine 100 unit/mL (3 20 - 30 unit SC HS Diabetes 11/16/23 03/16/24 History
mL) subcutaneous pen (Lantus
Solostar U-100 Insulin)
valsartan 80 mg tablet 80 mg PO BID Heart 11/16/23 03/16/24 History
Disease/Condition
insulin lispro 100 unit/mL 15 unit SC AC 12/31/23 03/16/24 History
subcutaneous pen (Admelog SoloStar
U-100 Insulin lispro)
furosemide 40 mg tablet (Lasix) 40 mg PO BID #60 tabs 01/03/24 03/16/24 Rx
metoprolol succinate 50 mg 50 mg PO BID #60 tabs 01/03/24 03/16/24 Rx
tablet,extended release 24 hr
(Toprol XL)
spironolactone 25 mg tablet 25 mg PO DAILY Heart 01/03/24 03/16/24 Rx
disease/condition 30 days #30 tabs
prednisone 20 mg tablet 20 mg PO UD 03/16/24 03/16/24 History
vitamins A,C,J-bzbo-xrmqkc 2,148 1 tab PO BID 03/16/24 03/16/24 History
mcg-113 mg-45 mg-17.4 mg tablet
(PreserVision AREDS)
Review of Systems
-
History Source: Patient
All other systems: Negative unless noted
Respiratory: Trouble Breathing
Cardiac: Chest Pain
Physical Exam
Vital Signs
Temp Pulse Resp BP Pulse Ox
98.3 F 58 20 144/67 98
03/17/24 08:07 03/17/24 08:30 03/17/24 08:07 03/17/24 08:09 03/17/24 08:07
Lab Results
03/17/24 03:17
03/17/24 03:17
Troponin I 1.380 ng/ml H* D 03/16/24 21:01
Cee-S-Jmztrdnvrlb Pept 3510 pg/ml 03/16/24 13:23
Physical Exam
General: Well Developed, Well Nourished and No Apparent Distress
HEENT: Normocephalic and Anicteric
Respiratory: Crackles (mild Right base)
Cardiac: Regular Rhythm and Murmur (II/ systolic murmur)
Musculoskeletal: No Edema
Skin: Warm and Dry
Neuro: AO x 3
Psych: Calm
Impression / Plan
-
NSTEMI:
-this diagnosis is threat to life
-trend trops to peak
-echo follow-up study
-continue heparin drip, which requires intensive monitoring
-cardiac cath today
-CP free at the time of my assessment
-give full dose aspirin now, then continue baby asa daily. He was told to stop Plavix as OP- reassess after cath.
CAD with hx CABG and stenting:
-complex coronary artery disease with plan for assessment as above
-ASA, statin, BB
LANG:
-improving
-holding Lasix, spironolactone, ARB, and metformin
-monitor closely, particularly with cath
HFrEF:
-does not appear obviously volume overloaded to my assessment
-weight stable, no edema
-monitor volume closely
ICM EF 30-35%:
-add back GDMT when able- multiple meds held for LANG (see above). Continue metoprolol.
-per Dr. Frias's most recent OV note- Entresto and SGLT2 too expensive for patient.
Bio AVR:
-most recent echo with increased gradients as below
Data Reviewed
-
EKG: Tracing Personally Visualized and interpreted (SR with 1st degree AVB and LBBB)
Radiology: Report Reviewed by me (CXR: Cardiomegaly with increased pulmonary vascularity, latter acute versus chronic difficult to differentiate.)
Medical Tests (Nuc Med, Echo etc): Report Reviewed by me (Echo 02/26/24: EF 30-35%. Bioprosthethetic aortic valve is in place with a peak/mean of 37/22mmHg.)
Labs: Labs Reviewed by me
[2024-03-17] MEDS: ROXICODONE 10 MG PO (08:55)
[2024-03-17] MEDS: THERAGRAN 1 TABLET PO (08:55)
[2024-03-17] MEDS: OCUVITE SOFTGEL 1 CAP PO ×2 (08:55→19:37)
[2024-03-17] MEDS: TOPROL XL 50 MG PO ×2 (08:55→19:37)
[2024-03-17] MEDS: DIOVAN PO (09:00)
[2024-03-17] MEDS: ASPIR LOW (ENTERIC COATED) 81 MG PO (09:00)
[2024-03-17] MEDS: NOVOLOG FLEXPEN SC ×2 (09:01→12:46)
[2024-03-17 09:48] LABS: APTT 51.6 Sec (23.4-35.0)
[2024-03-17] MEDS: DELTASONE 40 MG PO (09:55)
[2024-03-17] MEDS: ASPIRIN 325 MG PO (09:55)
[2024-03-17] MEDS: NSS 1000 IV ×2 (09:57→19:37)
--- NOTE | 2024-03-17 11:40 | CM ---
CM following for DC planning needs.
CM met w/ patient's spouse and other family at bedside. Pt. was sleeping soundly.
Pt. resides w/ spouse in a private, 2 story home w/ 5 [address].
Functionally, patient is indep. at baseline w/ ADLs, mobility with use of a SPC occasionally.
Pt. has RX plan and uses [facility] on [address] in [place] for prescription needs.
Anticipated DC plan is for home without needs.
Will follow.
[2024-03-17 12:14] LABS: Glucose - Point of Care 174 mg/dl (70-99)
[2024-03-17] MEDS: NOVOLOG FLEXPEN-LOW RESISTANCE 1 UNITS SC (12:50)
[2024-03-17 15:17] LABS: ACT-LR - POC 351 Seconds (116-155)
--- NOTE | 2024-03-17 15:44 | ITS.CL.ANGIO ---
Pay Station Collector - Angioplasty
Angioplasty
Procedure Report:
CARDIAC CATHETERIZATION REPORT
Date of Procedure: 03/17/2024
Referring: Sky Roland M.D., Ph.D.
INDICATION: Non-ST elevation myocardial infarction, known coronary artery disease.
PROCEDURE:
1. Left heart catheterization.
2. Bypass angiography.
3. Successful IVUS guided PTCA of the ostial sequential SVG.
A total of 56 minutes of procedural/moderate sedation was utilized. An independent medical facilities section director was present to assist with and help manage the patient's level of consciousness and physiologic status.
ACCESS:
1. 6 [place] right common femoral artery using a modified Seldinger technique with a micropuncture kit under ultrasound guidance. Ultrasound image obtained.
CATHETERS:
1. 5 [place] JR4.
2. 5 [place] ELVIS.
3. 6 [place] AL-1 guiding catheter.
HEMODYNAMIC DATA
Weight (kg): 94.3
AO (s/d/x, mmHg): 176/60/99
LV (s/x mmHg): 190/29 (A wave to 44)
AV gradient (x, mmHg): 31
LEFT VENTRICULOGRAPHY: Not performed. A bioprosthetic aortic valve is visible.
CORONARY ANGIOGRAPHY
Dominance: Right.
Left Main: Not injected. Known to be chronically totally occluded at its origin.
LAD: Not injected. Normal size vessel giving rise to 1 significant diagonal. The vessel is chronically totally occluded at its origin. The vessel supplied by patent WEBB graft.
Ramus: Congenitally absent.
Circumflex: Not injected. Known to be a normal size, nondominant vessel giving rise to at least 2 obtuse marginals. The vessel is chronically totally occluded at its origin. OM1 and OM 2 are supplied by a sequential vein graft.
RCA: Not injected. Known to be chronically occluded at its origin. The RPDA supplied by a patent sequential vein graft.
BYPASS GRAFT ANGIOGRAPHY
WEBB to LAD: Normal size graft with end-to-side anastomosis to the mid LAD. There is no evidence of stenosis or graft degeneration.
SVG to OM1 to OM2 to RPDA: Normal size graft with aesr-ax-vikj anastomosis to OM1 and OM 2 and end-to-side anastomosis to the RPDA. There are 2 stents present in the ostium of the vein graft. The first stent is angled upwards and is chronically
occluded. The second stent was implanted to treat ISR of the first stent but was advanced through the side struts, causing upward beveling of the first stent during the second stent deployment. Graft patency cannot be assessed without engaging the
lower stent. There is at least 60-70% in-stent restenosis within the distal margin of the stent.
INTERVENTION(S)
1. IVUS of the proximal SVG.
2. Successful PTCA of the proximal SVG (ClearFit Euphora 4.0 x 20 NC balloon) with reduction in stenosis to 20%, maintaining RACHEL-3 flow.
Narrative:
The decision was made to perform intracoronary imaging. The diagnostic catheter was removed over a wire and exchanged for 6 [place] AL-1 guiding catheter. The guiding catheter was advanced into the ascending aorta and seated in the ostium of the
sequential SVG. Additional heparin was given to obtain an ACT greater than 250 seconds. After crossing the lesion with a coronary wire, an IVUS catheter was advanced through the guiding catheter and into the ostium of the artery. Ring down was
performed once the imaging crystal was no longer inside of the guiding catheter. The IVUS catheter was advanced into the proximal graft, beyond the stented segment. Intravascular ultrasound was performed in a retrograde fashion using a slow
pullback. Intracoronary imaging demonstrated good stent expansion and apposition throughout the entire stented segment. 2 layers of stent are visualized with the secondary layer pointing slightly downwards. There is neointimal hyperplasia in the
mid stent with significant stenosis.
The decision was made to proceed with percutaneous coronary intervention. A 4.0 x 12 noncompliant balloon was advanced into the stent but experienced sequential geographic miss is due to watermelon seeding. The 4.0 x 12 noncompliant balloon was
removed and a 4.0 x 20 noncompliant balloon was advanced. Meticulous care was taken while positioning the balloon, ensuring that the entire stented segment would be dilated. The stent was postdilated to 14 atmospheres. IVUS was repeated and
demonstrated improved stent expansion with reduction in the neointimal hyperplasia.
Angiography was performed in orthogonal views, confirming significant reduction in intraluminal ISR and an excellent angiographic result. The coronary wire was withdrawn and the guide was disengaged from the artery. The catheter was removed over a
standard J-wire.
Closure Device: 6 [place] Angio-Seal.
Radiation (mGy): 1027.28
DAP (cm2.Gy): 56.7474
Fluoroscopy time (minutes): 18.2
CONCLUSIONS
1. Right dominant circulation with chronic total occlusion of the entire [place] circulation status post bypass (patent WEBB to LAD, patent sequential SVG to OM1 to OM2 to RPDA) with prior PCI of the ostial sequential SVG. The original ostial SVG
stent developed in-stent restenosis and was treated with a second stent. Unfortunately, cannulation of the stent was not possible given its position in the aorta and the original stent was wired through the side struts. The second stent deployment
beveled the first stent upwards and occluded it superiorly. SVG graft patency can only be assessed by cannulating the inferior stent.
2. Status post successful IVUS guided PTCA of the 60-70% ostial SVG stent ISR (Medtronic Euphora 4.0 x 28 NC balloon to 14 marline) with reduction in stenosis to 20%, maintaining RACHEL-3 flow.
3. Severely elevated filling pressures (LVEDP = 29 mmHg at 94.3 kg) with evidence of diastolic dysfunction (A wave to 44 mmHg).
4. At least moderate bioprosthetic aortic valve stenosis, mean gradient = 31 mmHg on pullback.
RECOMMENDATIONS:
1. Expectant management after cardiac catheterization via right common femoral approach.
2. Limited weight bearing on the right wrist for one week.
3. Dual antiplatelet therapy with aspirin and clopidogrel for at least 12 months, likely lifelong given burden of coronary disease and stent position.
4. Aggressive secondary prevention with high-dose, high potency statin. Goal LDL <55.
5. Guideline directed medical therapy as hemodynamics tolerate.
6. Echocardiogram ordered and pending.
7. Continued ongoing surveillance of the bioprosthetic aortic valve.
8. If the patient were to develop recurrent in-stent restenosis, serious thought should be given to the use of drug-coated balloon as a third layer of stent is unlikely to provide a long-term solution.
9. Referral to cardiac rehab.
Copy to: Nick Perez D.O., Santos Weinberg M.D., Sky Roland M.D., Ph.D.
Nick Perez DO, FACC, FACP
[2024-03-17 16:01] LABS: Glucose - Point of Care 216 mg/dl (70-99)
--- NOTE | 2024-03-17 16:19 | PTCARENOTE ---
Rec'd report from Vicki in the home performance laborer & rc'd pt back drowsy but easily arousable, AAOX3 w/no c/o CP or SOB, but pt c/o 'mild 3/10' R groin pain at the cath access site. Dressing C/D/I w/no signs or symptoms of bleeding or hematoma. Pt & family
advised of bedrest restrictions until 1830 tonight. Pt's VS stable on return w/HR in the 50's & BP 154/70. Pt w/call wilcox within reach & family at bedside.
[2024-03-17] MEDS: LIPITOR 80 MG PO (18:10)
[2024-03-17] MEDS: NOVOLOG FLEXPEN 15 UNITS SC (18:30)
[2024-03-17] MEDS: NOVOLOG FLEXPEN-LOW RESISTANCE 2 UNITS SC (18:30)
[2024-03-17 21:03] LABS: Glucose - Point of Care 364 mg/dl (70-99)
[2024-03-17] MEDS: LANTUS 0.2 UNITS SC (22:49)
[2024-03-18] VITALS (8 sets, daily range): BP systolic 128–155; BP diastolic 50–63; PULSE 57–58; O2SAT 99–100; BMI 29.7
--- NOTE | 2024-03-18 02:19 | PTCARENOTE ---
Assumed care of the pt @ 1900. Pt is AAOx3 SR/SB on the monitor VSS RA Rt groin cath site dressing slight oozing serosang drainage no hematoma no ecchymosis distal pulses palpable. Call wilcox within reach.
[2024-03-18] MEDS: NSS IV (03:19)
[2024-03-18 05:08] LABS: Hematocrit 32.3 % (39.0-52.0); Hemoglobin 11.2 g/dL (13.0-18.0); Mean Corp Hgb Conc. 34.7 g/dL (33.0-37.0); Mean Corpuscular Hgb 30.9 pg (27.0-31.0); Platelet Count 220 10^3/uL (130-400); Red Blood Cell Count 3.63 10^6/uL (4.70-6.10); Red Cell Dist. Width 12.7 % (11.5-14.5); White Blood Cell Count 10.3 10^3/uL (4.8-10.8)
[2024-03-18 05:59] LABS: ALT (SGPT) 17 U/L (0-50); AST (SGOT) 25 U/L (17-59); Albumin 3.7 g/dl (3.5-5.0); Alkaline Phosphatase 71 U/L (38-126); Blood Urea Nitrogen 30 mg/dl (9-20); Calcium 8.9 mg/dl (8.4-10.2); Carbon Dioxide 21 mmol/L (22-30); Chloride 108 mmol/L (98-107); Estimated Creatinine Clearance 52 ml/min; Glucose 158 mg/dl (70-99); Potassium 3.8 mmol/L (3.5-5.1); Sodium 140 mmol/L (135-145); Total Bilirubin 1.3 mg/dl (0.2-1.3); eGFR > 60.00
--- NOTE | 2024-03-18 06:34 | W.PN.HOSP.TC ---
Today's Communication/Plan
-
Possible discharge
resume diuretics.
Assessment / Plan
Assessment / Plan
Physical Exam
General: Well Developed, Well Nourished, No Apparent Distress, Comfortable and Conversant
HEENT: Normocephalic, Moist mucous membranes, Atraumatic, Drew Conjunctivae, Nose Appears Normal and Ears Appear Normal
Respiratory: Clear and Non Labored Respirations
Cardiac: S1/S2 , Murmur.
GI: Soft, Non Tender and Normal Bowel Sounds
Rectal: No bleeding
Genito-urinary: No hematuria
Musculoskeletal: No Clubbing, No Cyanosis and No Edema
Skin: Warm and IV/Catheter Site; No Rash
Neuro: Awake, Alert, AO x 3 and Nonfocal/grossly intact
Psych: Calm and Intact Judgment/Insight.
# NSTEMI, known CAD
No chest pain over night
s/p cath by Dr Perez with successful stenting of proximal saphenous vein graft.
Trop: 0.076, 0.482 then 1.380
-s/p Heparin gtt
c/w BB, Statin, aspirin & Plavix.
Add Plavix ( seems was in 12/2023 discharge med list) .
- held furosemide and metformin for cath, can resume after it
Appreciate cardiology input
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
BUN 55, Creat 2.2
Creatinine down to 1.2
- Held furosemide and metformin
- monitor BMP
- s/p IVF for renal prep
#hypertension
- continue metoprolol, spironolactone and valsartan
#hyperlipidemia
- continue atorvastatin
#NIDDM
HGB A1C 8.1
Increased basal insulin upon discharge
recent steroid intake for arthritis, last day is 03/18.
#Chronic HFrEF
LBBB
- daily weights
#Leukocytosis, reactive, recent use of steroid.
No fevers, resolved
# COPD without exacerbation
# PAD (peripheral artery disease)
# chronic pain syndrome with opioid dependency
Diabetic Peripheral neuropathy
Total dc time spent to see the patient, examine the patient, review data and lab results, discuss discharge/ treatment plan with patient, nursing staff around 65 minutes
Anticipated Discharge: Today
Subjective/Interval History
-
Date of Service: March 18, 2024
No chest pain over night
No sob
Objective Data
-
Labs:
Laboratory Results
03/18/24
04:53
WBC 10.3
Hgb 11.2 L
Hct 32.3 L
Plt Count 220
Sodium 140
Potassium 3.8
Chloride 108 H
Carbon Dioxide 21 L
BUN 30 H
Creatinine 1.2
Glucose 158 H
Calcium 8.9
Total Bilirubin 1.3
AST 25
ALT 17
Alkaline Phosphatase 71
Vital Signs:
Vital Signs
Temp Pulse Resp BP Pulse Ox
97.9 F 53 20 144/59 96
03/18/24 05:16 03/18/24 05:16 03/18/24 05:16 03/18/24 04:38 03/18/24 05:16
I&O
03/16/24 03/17/24 03/18/24
06:59 06:59 06:59
Intake Total 250 / 250 2240 / 2240
Output Total 1050 / 1050 1100 / 1100
Balance -800 / -800 1140 / 1140
--- NOTE | 2024-03-18 07:20 | W.PN.CD ---
Today's Communication / Plan
-
Check C. Diff/Norovirus.
Echo.
Check troponin.
Restart valsartan/spironolactone.
Furosemide 40 mg IV now, 80 mg PO daily as an outpatient.
Close outpatient follow up of bioprosthetic SAVR.
BMP in one week.
Discharge planning.
Impression / Plan
-
Impression/Plan: 78 y/o male with HTN, HLD, IDDM and CAD s/p CABG and prior PCI to SVG admitted with NSTEMI.
#NSTEMI/CAD:
-Acute, diagnosis is threat to life.
-Check troponin this morning as peak was never observed.
-Echo this morning.
-Cath shows chronic total occlusion of [place] circulation (known) and patent WEBB to LAD. The sequential SVG to OM1 to OM2 to RPDA has a history of prior PCI x2, the second performed for ISR of the first stent. The second stent was deployed
through the side struts of the first stent, beveling the first stent superiorly. Injection of the first (superior) stent shows occlusion. Patency of the SVG cannot be assessed without injecting the second/inferior stent.
-There was a hazy, 60-70% ISR lesion within the ostial SVG stent. This underwent PTCA with a 4.0 x 20 NC balloon with improvement.
-Continue DAPT with ASA/clopidogrel.
-The patient will likely require repeat intervention as the deformed stent will be a set up for further ISR. This will likely require use of a drug coated balloon.
-Continue aggressive secondary prevention with high dose, high potency statin.
#Diarrhea
-Acute.
-No fevers, chills, leukocytosis.
-Suspect functional, though we will r/o C. Diff and norovirus.
-If C. Diff/norovirus is negative, ok with anti-motility agents.
#LANG:
-Acute, resolved.
-LVEDP = 29 mmHg at the time of cath, consistent with cardiorenal syndrome.
#HFrEF:
-Acute on chronic.
-LVEDP = 29 mmHg during cath.
-Furosemide 40 mg IV now.
-Increase home furosemide to 80 mg daily (rather than 40 mg BID).
-BMP in one week.
#ICM EF 30-35%:
-Chronic.
-GDMT with metoprolol. Restart valsartan/spironolactone.
-Per Dr. Frias's most recent OV note- sacubatril-valsartan and SGLT2i too expensive for patient.
#Bioprosthetic SAVR:
-Chronic.
-Most recent echo with increased gradients.
-Pull back gradient 31 mmHg.
-This will need reasonably close outpatient follow up.
Subjective/Interval History:
PTCA of the ostial SVG ISR yesterday.
LVEDP = 29 mmHg.
Feels well after PTCA.
He reports 3-4 episodes of diarrhea this morning, non bloody. He admits to mild abdominal pain related to diarrhea. No fevers/chills.
DATA:
Cardiac Catheterization/PTCA, 03/17/2024:
CONCLUSIONS
1. Right dominant circulation with chronic total occlusion of the entire [place] circulation status post bypass (patent WEBB to LAD, patent sequential SVG to OM1 to OM2 to RPDA) with prior PCI of the ostial sequential SVG. The original ostial SVG
stent developed in-stent restenosis and was treated with a second stent. Unfortunately, cannulation of the stent was not possible given its position in the aorta and the original stent was wired through the side struts. The second stent deployment
beveled the first stent upwards and occluded it superiorly. SVG graft patency can only be assessed by cannulating the inferior stent.
2. Status post successful IVUS guided PTCA of the 60-70% ostial SVG stent ISR (Superfocustronic Euphora 4.0 x 28 NC balloon to 14 marline) with reduction in stenosis to 20%, maintaining RACHEL-3 flow.
3. Severely elevated filling pressures (LVEDP = 29 mmHg at 94.3 kg) with evidence of diastolic dysfunction (A wave to 44 mmHg).
4. At least moderate bioprosthetic aortic valve stenosis, mean gradient = 31 mmHg on pullback.
Transthoracic echocardiogram, 02/26/2024:
CONCLUSIONS
Moderately reduced left ventricular systolic function.
Left ventricular ejection fraction is 30-35%.
Bioprosthethetic aortic valve is in place with a peak/mean of 37/22mmHg.
When compared to the previous report 08/16 the transaortic gradients have
increased. Previously peak of 19 mmHg and a mean gradient of 12 mmHg.
Physical Exam
Vital Signs/Labs
Vital Signs
Temp Pulse Resp BP Pulse Ox
36.6 C 55 20 144/59 96
03/18/24 05:16 03/18/24 07:00 03/18/24 05:16 03/18/24 04:38 03/18/24 05:16
03/16/24 03/17/24 03/18/24
11:59 11:59 11:59
Actual Weight 94.6 kg 93.8 kg
03/18/24 04:53
03/18/24 04:53
APTT Cancelled 03/17/24 19:00
Triglycerides 165 mg/dl (10-149) H 03/17/24 03:17
LDL Cholesterol, Calc 57 mg/dl 03/17/24 03:17
VLDL Cholesterol, Calc 33 mg/dl (0-30) H 03/17/24 03:17
HDL Cholesterol 30 mg/dl 03/17/24 03:17
03/16/24
13:23
[id number] Pept 3510
LAB Results
03/16/24 03/16/24 03/16/24
13:23 16:52 17:35
Troponin I 0.076 H* Cancelled 0.482 H* D
03/16/24 03/17/24
21:01 09:11
Troponin I 1.380 H* D Cancelled
Physical Exam
Constitutional: No acute distress and Comfortable
EENT: Anicteric and Moist mucous membranes
Cardiovascular: Rhythm & rate is regular, JVD pressure is normal, Pedal edema present, Systolic murmur present and S1S2 is normal
Respiratory: Respiratory effort normal, Lungs clear to auscul., Wheeze Absent, Crackles Absent and Rhonchi Absent
GI: Soft, Distention absent, Flat, Non tender and Normal bowel sounds
Neuro/Psych: AO x 3
Other: Cath Site (Right common femoral access site is C/D/I.)
Data Reviewed
-
Date of Service: March 18, 2024
Medical Decision Making: Reviewed Test Results, Tests Ordered and Independent Historian Assessment
EKG: Tracing Personally Visualized and interpreted and Report Reviewed by me
Echo: Ordered by me
X-Ray/CT/US/MRI/NUC/PET: Image Personally Visualized and interpreted and Report Reviewed by me
Medical Tests (PFT, Pathology etc): Image Personally Visualized and interpreted and Report Reviewed by me
Labs: Labs Reviewed by me
Old Records: Reviewed
--- NOTE | 2024-03-18 08:05 | PTCARENOTE ---
Assumed care of the pt from prev nsg shift @ 0700. Pt is AAOx3 w/no c/o CP or SOB. Pt is SB/SR w/L BBB & 1st deg AAV block on telemetry monitoring. VSS w/HR in the 50's-60's & BP this AM 148/61. Rt groin cath site dressing C/D/I w/no signs or
symptoms of bleeding or hematoma. Call wilcox within reach.
[2024-03-18] MEDS: NOVOLOG FLEXPEN 15 UNITS SC ×2 (08:46→13:10)
[2024-03-18] MEDS: THERAGRAN 1 TABLET PO (08:47)
[2024-03-18] MEDS: OCUVITE SOFTGEL 1 CAP PO (08:47)
[2024-03-18] MEDS: PLAVIX 75 MG PO (08:47)
[2024-03-18] MEDS: NOVOLOG FLEXPEN-LOW RESISTANCE 1 UNITS SC (08:47)
[2024-03-18] MEDS: DELTASONE 20 MG PO (08:48)
[2024-03-18] MEDS: ASPIR LOW (ENTERIC COATED) 81 MG PO (08:49)
[2024-03-18] MEDS: FLUSH (NSS) 2 FLUSH IV (08:50)
[2024-03-18] MEDS: ROXICODONE 10 MG PO (08:50)
[2024-03-18] MEDS: LASIX 40 MG IV (08:50)
[2024-03-18] MEDS: TOPROL XL 50 MG PO (08:50)
[2024-03-18 10:44] LABS: Troponin I 0.654 ng/ml
--- NOTE | 2024-03-18 11:50 | PTOTSP ---
pt currently requires no assistance to complete simple ADLs, functional transfers, ambulation. pt up in room ad joan. no acute OT needs identified at this time, will sign off.
--- NOTE | 2024-03-18 11:52 | CM ---
CM following for DC planning needs.
Met w/ patient and family at bedside.
Pt. feels well and is hopeful for DC to home today. He anticipates no needs at time of DC.
Plan is for home, no needs.
Will follow.
[2024-03-18 12:55] LABS: Glucose - Point of Care 233 mg/dl (70-99)
--- NOTE | 2024-03-18 13:07 | W.DCSUMMARY ---
Discharge Summary
Discharge Data
Date of Admission: 03/16/24
Date of Discharge: 03/18/24
-
Pending Results: No
Hospital Course
78 years old male presented to the hospital with chest pain. EKG showed left bundle branch block which was a chronic. Mild troponin elevation then went up to 1.38. Patient was admitted to cardiac unit. He was started on intravenous heparin and
was given antiplatelet therapy. Starch Factory Laborer evaluated the patient. Patient underwent left heart catheterization with balloon angioplasty with stent to vein graft to obtuse marginal. Cardiology recommended to change Lasix dose to 80 mg once a day
daily instead of 40 mg twice a day. Patient was given mild intravenous fluid for cardiac catheterization. Post catheterization creatinine was 1.2. Patient remained hemodynamically stable was discharged home in a stable condition.
Discharge Plan
-
Patient Disposition: Home (Routine Discharge)
Discharge Diagnosis/Procedures: NSTEMI, Balloon angioplasty with stent to vein graft to OM
Starch Factory Laborer recommended Lasix 80 mg at once daily ( you can combine two pills of 40 mg at once if you have enough pills at home)
Diet: Low Cholesterol
Driving Restrictions: No driving for 24 hours
Other Services: Cardiac Rehab
Stand Alone Forms: DC Instructions- Cath/EP Lab
Referrals:
[facility]. Cardiac Rehab [Outside] - 04/04/24 1:00 pm
(Cardiac Rehab Orientation appointment is on 04/04/24 at 1:00 pm
The Cardiac Rehab gym is located on the first floor of the [facility].)
Dejuan Frias MD [Active] - 03/30/24 3:40 pm
Santos Weinberg MD [Family Provider] -
Additional Discharge Medication Instructions: Hold Metformin post procedure resume on Sat evening
Prescriptions:
New
furosemide 80 mg Tablet
80 mg PO DAILY Qty: 30 0RF
Continued
multivitamin 1 EACH tablet
1 ea PO DAILY
atorvastatin 80 mg tablet
80 mg PO QPM
aspirin 81 mg Tablet,Delayed Release (Dr/Ec)
81 mg PO DAILY
nitroglycerin 0.4 mg Tablet, Sublingual
0.4 mg sublingual [id number] PRN (Reason: chest pain) Qty: 30 0RF
clopidogrel [Plavix] 75 mg Tablet
75 mg PO DAILY
Patient Comments:
patient advise by pcp demetrius hold/ stop medication on 03/16/2024
valsartan 80 mg Tablet
80 mg PO BID
insulin glargine [Lantus Solostar U-100 Insulin] 300 UNITS/3 ML insulin pen
20 - 30 unit SC HS
insulin lispro [Admelog SoloStar U-100 Insulin] 100 unit/mL insulin pen
15 unit SC AC
metoprolol succinate [Toprol XL] 50 mg tablet extended release 24 hr
50 mg PO BID Qty: 60 0RF
spironolactone 25 mg Tablet
25 mg PO DAILY 30 Days Qty: 30 0RF
PreserVision AREDS 2,148 mcg-113 mg-45 mg-17.4mg Tablet
1 tab PO BID
Changed
oxycodone 10 MG tablet
10 mg PO Q6HPRN PRN (Reason: moderate to severe pain) Qty: 0 0RF
Patient Comments:
12/31/2023: last filled 12/21/23, 120 tabs for 30 days from [id number]
Held
metformin 1,000 MG tablet
1,000 mg PO BID@0800,1700 Qty: 1 0RF
Hold Instructions: Resume on 04/10/23.
Discontinued
furosemide [Lasix] 40 mg tablet
40 mg PO BID Qty: 60 0RF
prednisone 20 mg Tablet
20 mg PO UD
Rx Instructions:
patient start on 03.14.24- take 60mg daily for 2 day then 40mg daily for 3 days then 20mg daily for 3 days
Discharge Orders:
Discharge Patient (As Directed); Ordered 03/18/24
Ordered By: Zhang Arreguin
Care Plan Goals
Care Plan Goals:
Problem: Readiness for enhanced knowledge related to diagnosis and treatment plan
Goal: Understand your diagnosis and treatment plan needs, including medications if applicable.
Instructions: Know your diagnosis, underlying causes and treatment plan options, including medications if applicable. Consult with your health care team to learn about your diagnosis and treatment plan, including medications if applicable.
Discharge Date and Time
Discharge Date/Time: 03/18/24 15:30
Print Language: FRISIAN
[2024-03-18] MEDS: NOVOLOG FLEXPEN-LOW RESISTANCE 2 UNITS SC (13:11)
--- NOTE | 2024-03-18 15:41 | PTCARENOTE ---
Pt's IV lines & gambling monitor D/C'd; Discussed D/C instructions w/pt & pt's daughter. Pt left w/personal belongings incl cell phone & fusing machine operator via wheelchair w/daughter driving him home.
== END 2024-03-18 15:30 | disposition home or self-care (01) | DRG 250 ==
LOC: IVU 19:26
PROVIDERS: Emergency Medicine; Internal Medicine Cardiovascular Disease; Nurse Practitioner Family; Physician Assistant; ADMITTING PHYSICIAN Internal Medicine; ATTENDING PHYSICIAN Internal Medicine; EMERGENCY PHYSICIAN Emergency Medicine; FAMILY PHYSICIAN Family Medicine; OTHER PHYSICIAN Internal Medicine
PROC: B2111ZZ Fluoroscopy of Multiple Coronary Arteries using Low Osmolar Contrast (ICD-10-PCS; 2024-03-17)
PROC: B240ZZ3 Ultrasonography of Single Coronary Artery, Intravascular (ICD-10-PCS; 2024-03-17)
PROC: B2131ZZ Fluoroscopy of Multiple Coronary Artery Bypass Grafts using Low Osmolar Contrast (ICD-10-PCS; 2024-03-17)
PROC: 4A023N7 Measurement of Cardiac Sampling and Pressure, Left Heart, Percutaneous Approach (ICD-10-PCS; 2024-03-17)
PROC: 02703ZZ Dilation of Coronary Artery, One Artery, Percutaneous Approach (ICD-10-PCS; 2024-03-17)
PROC: B2181ZZ Fluoroscopy of Left Internal Mammary Bypass Graft using Low Osmolar Contrast (ICD-10-PCS; 2024-03-17)
DX: T82.855A Stenosis of coronary artery stent, initial encounter (principal); I21.4 Non-ST elevation (NSTEMI) myocardial infarction; I50.23 Acute on chronic systolic (congestive) heart failure; N17.9 Acute kidney failure, unspecified; I13.0 Hypertensive heart and chronic kidney disease with heart failure and stage 1 through stage 4 chronic kidney disease, or unspecified chronic kidney disease; F11.20 Opioid dependence, uncomplicated; I44.7 Left bundle-branch block, unspecified; Y71.2 Prosthetic and other implants, materials and accessory cardiovascular devices associated with adverse incidents; Z79.4 Long term (current) use of insulin; Z79.899 Other long term (current) drug therapy; Z79.84 Long term (current) use of oral hypoglycemic drugs; I25.10 Atherosclerotic heart disease of native coronary artery without angina pectoris; E11.22 Type 2 diabetes mellitus with diabetic chronic kidney disease; N18.32 Chronic kidney disease, stage 3b; E78.00 Pure hypercholesterolemia, unspecified; Z95.1 Presence of aortocoronary bypass graft; Z95.2 Presence of prosthetic heart valve; Z87.891 Personal history of nicotine dependence; Z88.8 Allergy status to other drugs, medicaments and biological substances; Z79.82 Long term (current) use of aspirin; Z79.02 Long term (current) use of antithrombotics/antiplatelets; E11.51 Type 2 diabetes mellitus with diabetic peripheral angiopathy without gangrene; E11.42 Type 2 diabetes mellitus with diabetic polyneuropathy; G89.4 Chronic pain syndrome; I25.82 Chronic total occlusion of coronary artery; T82.857A Stenosis of other cardiac prosthetic devices, implants and grafts, initial encounter; F32.A Depression, unspecified; K21.9 Gastro-esophageal reflux disease without esophagitis; J44.9 Chronic obstructive pulmonary disease, unspecified; D72.829 Elevated white blood cell count, unspecified
CPT/HCPCS: 93308; 71046; 80053; 80061; 82962; 83036; 83880; 84484; 85025; 85027; 85730; 92978; 93005; 93459; 96365; 96366; 96367; 97162; 97166; 99291; C1725; C1753; C1760; C1887; C1894; Q9967

== ENCOUNTER 2024-04-22 10:36 | Outpatient (RCR) | payer MEDICARE, OTHER, SELFPAY ==
[2024-04-04 14:58] LABS: Glucose - Point of Care 336 mg/dl (70-99)
[2024-04-06 09:39] LABS: Glucose - Point of Care 142 mg/dl (70-99)
[2024-04-06 10:18] LABS: Glucose - Point of Care 161 mg/dl (70-99)
[2024-04-08 09:18] LABS: Glucose - Point of Care 162 mg/dl (70-99)
[2024-04-08 10:08] LABS: Glucose - Point of Care 136 mg/dl (70-99)
[2024-04-13 10:54] LABS: Glucose - Point of Care 103 mg/dl (70-99)
[2024-04-13 11:41] LABS: Glucose - Point of Care 139 mg/dl (70-99)
[2024-04-15 09:30] LABS: Glucose - Point of Care 227 mg/dl (70-99)
[2024-04-15 10:13] LABS: Glucose - Point of Care 223 mg/dl (70-99)
[2024-04-18 09:22] LABS: Glucose - Point of Care 238 mg/dl (70-99)
[2024-04-18 10:08] LABS: Glucose - Point of Care 221 mg/dl (70-99)
[2024-04-20 09:23] LABS: Glucose - Point of Care 130 mg/dl (70-99)
[2024-04-20 10:08] LABS: Glucose - Point of Care 110 mg/dl (70-99)
[2024-04-22 09:22] LABS: Glucose - Point of Care 127 mg/dl (70-99)
[2024-04-22 10:12] LABS: Glucose - Point of Care 124 mg/dl (70-99)
== END 2024-04-22 23:59 | disposition home or self-care (01) ==
LOC: CRHB 10:36
PROVIDERS: ATTENDING PHYSICIAN Internal Medicine
DX: I25.2 Old myocardial infarction (principal); I25.10 Atherosclerotic heart disease of native coronary artery without angina pectoris (principal); Z95.5 Presence of coronary angioplasty implant and graft (principal); I21.4 Non-ST elevation (NSTEMI) myocardial infarction
CPT/HCPCS: 82962; G0422; G0423

== ENCOUNTER 2024-05-09 10:32 | Outpatient (RCR) | payer MEDICARE, OTHER, SELFPAY ==
[2024-04-25 09:23] LABS: Glucose - Point of Care 224 mg/dl (70-99)
[2024-04-25 10:49] LABS: Glucose - Point of Care 234 mg/dl (70-99)
== END 2024-05-20 17:36 | disposition other institution (70) ==
LOC: CRHB 10:32
PROVIDERS: ATTENDING PHYSICIAN Internal Medicine; FAMILY PHYSICIAN Family Medicine
DX: Z95.5 Presence of coronary angioplasty implant and graft (principal); I21.4 Non-ST elevation (NSTEMI) myocardial infarction (principal); I25.2 Old myocardial infarction; I25.10 Atherosclerotic heart disease of native coronary artery without angina pectoris
CPT/HCPCS: 82962; G0422; G0423

== ENCOUNTER 2024-05-10 14:29 | Inpatient (IN) | payer MEDICARE, OTHER, SELFPAY ==
[2024-05-10] VITALS (10 sets, daily range): BP systolic 118–151; BP diastolic 48–65; BMI 30.5; BMI 29.8
--- NOTE | 2024-05-10 10:24 | ED.GENMED ---
History of Present Illness
General
Chief Complaint: Cardiac Symptoms
Time Seen by Provider: 05/10/24 10:00
History of Present Illness
History of Present Illness:
78-year-old male with history of CAD status post CABG and stenting, hyperlipidemia, diabetes, CHF on 80 mg of Lasix daily presenting to the emergency department for shortness of breath. Patient reports symptoms started last evening, had difficulty
sleeping and felt like there was a rattling in his chest. Does also note some increased lower extremity swelling. Notes compliance with his Lasix. Reports that he had to sleep in a sitting position last evening. Denies associated chest pain.
Denies fever or cough. Denies abdominal pain or GI complaints. Denies additional acute medical complaints
Past History
Past History
ED Past Medical History: CAD, GERD, HTN, Hypercholesterolemia, NIDDM, [place], Psychiatric (Depression) and Other (chronic pain, diabetic peripheral neuropathy, peripheral arterial disease)
ED Past Surgical History: Cardiac (CABG 2010, aortic valve replacement 2015, cardiac stenting 2018, stent 2022), Tonsilectomy and Other (Xiphoid removal, right lower extremity arteriogram with bypass 2019)
Social History
Tobacco: Former smoker
Alcohol: None
Personal:
Living: with family
Family History
Family History: Other (Reviewed and noncontributory)
Phy Exam
Physical Exam
Physical Exam:
General: Well-appearing, no clinical signs of dehydration, nontoxic and in no acute distress
HEENT: protecting airway
Neck: appears supple
CV: Normal heart rate, regular rhythm
Resp: No accessory muscle use, no increased work of breathing, crackles at the bases bilaterally
Abd: Soft and non-distended, no tenderness to palpation
Extremities: No deformities, no erythema, +1 pitting edema bilaterally
Neuro: alert, no focal neurologic deficit
: deferred
Rectal: deferred
Psych: Normal affect
Skin: Intact
Course
Orders/Labs/Results
Orders:
Orders
05/10/24 09:31
ECG [Electrocardiogram (*1)] Urgent
Reason for Study: Shortness of Breath
EKG- Treatment ONCE
05/10/24 10:15
CR Chest - 2 Views Urgent
Comment:
Reason For Exam: sob CHF
05/10/24 10:24
Complete Blood Count/With Diff Urgent
Comprehensive Metabolic Panel Urgent
NT-proBNP Urgent
Troponin I Urgent
Abnormal Lab Results
05/10/24
10:24
WBC 11.5 H 10^3/uL
(4.8-10.8)
RBC 3.81 L 10^6/uL
(4.70-6.10)
Hgb 11.9 L g/dL
(13.0-18.0)
Hct 35.2 L %
(39.0-52.0)
MCH 31.2 H pg
(27.0-31.0)
MPV 10.8 H fL
(7.4-10.4)
Abs Immat Gran (auto) 0.1 H 10^3/uL
(0-0.05)
Absolute Neuts (auto) 9.0 H 10^3/uL
(1.4-6.5)
Absolute Monos (auto) 0.8 H 10^3/uL
(0.1-0.6)
Neutrophils % 78.3 H %
(42.2-75.2)
Lymphocytes % 11.6 L %
(20.5-51.1)
Carbon Dioxide 31 H mmol/L
(22-30)
Troponin I 0.046 H* ng/ml
05/10/24 10:24
05/10/24 10:24
Vital Signs
Initial and Last Documented VS:
Initial Vital Signs
Temp Pulse Resp BP Pulse Ox
97.8 F 54 20 129/55 96
05/10/24 09:32 05/10/24 09:32 05/10/24 09:32 05/10/24 09:32 05/10/24 09:32
Last Documented Vital Signs
Temp Pulse Resp BP Pulse Ox
97.5 F 51 19 118/60 95
05/10/24 10:15 05/10/24 10:30 05/10/24 10:30 05/10/24 10:24 05/10/24 10:30
MDM/Problems Addressed
MDM/Problems Addressed:
78-year-old male with history of CHF on 80 mg of Lasix daily presenting for shortness of breath and orthopnea. Vital signs on arrival are normal.
On exam, patient is resting comfortably, no acute distress or discomfort. No increased work of breathing. However on exam, does have crackles bilaterally and swelling to lower extremities with primary suspicion for acute on chronic CHF. EKG
obtained, left bundle branch block, relatively unchanged from prior. Plan for laboratory analysis and chest x-ray imaging as well as BNP. Patient afebrile, nontoxic without infectious symptoms or concern for systemic infection.
12:20 -x-ray is consistent with pulmonary edema. BNP is elevated. Troponin slightly elevated, however appears to have a chronic elevation. Plan for admission for IV diuresis given patient's presenting symptoms and volume overload state. Lasix
administered
*EKG
Interpreted by ED Provider?: Yes
EKG Intrepretation Date: 05/10/24
EKG Intrepretation Time: 10:28
Interpretation: abnormal
Comparison EKG: no changes (03/18/24)
Heart Rate: 55
Rate: bradycardiac
Rhythm: sinus
Rice: left axis deviation
Interval: normal interval
QRS Pattern: left bundle branch block
Ischemia: non-specific ST changes
*Critical Care Note
Total Time (30-74mins, 75-104mins- exclusive of procedures): Not Applicable
ED Attending Note
-
Portions of this chart may have been created with voice recognition software.� Occasional wrong word or��sound alike� substitutions may have occurred due to the inherent limitations of voice recognition software.
Discharge Plan
Departure
Prescriptions:
No Action
multivitamin 1 EACH tablet
1 ea PO DAILY
atorvastatin 80 mg tablet
80 mg PO QPM
aspirin 81 mg Tablet,Delayed Release (Dr/Ec)
81 mg PO DAILY
nitroglycerin 0.4 mg Tablet, Sublingual
0.4 mg sublingual [id number] PRN (Reason: chest pain) Qty: 30 0RF
clopidogrel [Plavix] 75 mg Tablet
75 mg PO DAILY
valsartan 80 mg Tablet
80 mg PO BID
insulin lispro [Admelog SoloStar U-100 Insulin] 100 unit/mL insulin pen
15 unit SC AC
metoprolol succinate [Toprol XL] 50 mg tablet extended release 24 hr
50 mg PO BID Qty: 60 0RF
spironolactone 25 mg Tablet
25 mg PO DAILY 30 Days Qty: 30 0RF
PreserVision AREDS 2,148 mcg-113 mg-45 mg-17.4mg Tablet
1 tab PO BID
furosemide 80 mg Tablet
80 mg PO DAILY Qty: 30 0RF
oxycodone 10 MG tablet
10 mg PO Q6HPRN PRN (Reason: moderate to severe pain) Qty: 0 0RF
Patient Comments:
last filled 04/21/24, 120 tabs for 30 days from [id number]
isosorbide mononitrate [Imdur] 30 mg Tablet Extended Release 24 Hr
30 mg PO DAILY
metformin 1,000 mg Tablet
1,000 mg PO BID
insulin glargine [Basaglar KwikPen U-100 Insulin] 100 unit/mL (3 mL) Insulin Pen
20 - 30 unit SC HS
Referrals:
Santos Weinberg MD [Family Provider] -
Interventions
Interventions:
*Risk Screen - Suicide Last Done: 05/10/24 10:19
*General Assessment Last Done: 05/10/24 10:19
*Neglect/Abuse Screening Last Done: 05/10/24 10:19
*ED COVID-19 Vaccine History Last Done: 05/10/24 10:19
ED- Pulmonary Assessment Last Done: 05/10/24 10:19
ED- Cardiac Assessment Last Done: 05/10/24 10:19
Discharge Date and Time
Print Language: CUBAN
[2024-05-10 10:33] LABS: % Basophils 0.3 % (0-2); % Eosinophils 2.3 % (0-6); % Immature Granulocytes 0.4 % (0-0.5); % Lymphocytes 11.6 % (20.5-51.1); % Monocytes 7.1 % (1.7-9.3); % Neutrophils 78.3 % (42.2-75.2); Absolute Eosinophils 0.3 10^3/uL (0-0.7); Absolute Immature Granulocytes 0.1 10^3/uL (0-0.05); Absolute Lymphocytes 1.3 10^3/uL (1.2-3.4); Absolute Monocytes 0.8 10^3/uL (0.1-0.6); Hematocrit 35.2 % (39.0-52.0); Hemoglobin 11.9 g/dL (13.0-18.0); Mean Corp Hgb Conc. 33.8 g/dL (33.0-37.0); Mean Corpuscular Hgb 31.2 pg (27.0-31.0); Mean Corpuscular Volume 92.4 fL (80.0-94.0); Mean Platelet Volume 10.8 fL (7.4-10.4); Nucleated Red Blood Cells % 0 % (-); Platelet Count 234 10^3/uL (130-400); Red Blood Cell Count 3.81 10^6/uL (4.70-6.10); Red Cell Dist. Width 13.8 % (11.5-14.5); White Blood Cell Count 11.5 10^3/uL (4.8-10.8)
[2024-05-10 10:53] LABS: ALT (SGPT) 18 U/L (0-50); AST (SGOT) 22 U/L (17-59); Albumin 4.2 g/dl (3.5-5.0); Alkaline Phosphatase 70 U/L (38-126); Blood Urea Nitrogen 19 mg/dl (9-20); Calcium 9.7 mg/dl (8.4-10.2); Carbon Dioxide 31 mmol/L (22-30); Chloride 104 mmol/L (98-107); Estimated Creatinine Clearance 55 ml/min; Glucose 73 mg/dl (70-99); Potassium 4.2 mmol/L (3.5-5.1); Sodium 141 mmol/L (135-145); Total Bilirubin 1.1 mg/dl (0.2-1.3); Total Protein 6.8 g/dl (6.3-8.2); eGFR 56.23
[2024-05-10 11:03] LABS: NT-proBNP 3170 pg/ml; Troponin I 0.046 ng/ml
--- NOTE | 2024-05-10 13:16 | HPS.HSE ---
Family Physician
-
Family Physician: Santos Weinberg
Chief Complaint
-
Shortness of breath, orthopnea, leg edema, 3 pound weight gain overnight
History of Present Illness
78-year-old male complaining of shortness of breath that started last evening 05/09/2024 with a rattling sensation in his chest along with increased lower extremity edema and orthopnea overnight with a 3 pound weight gain. His dry weight is around
205 he was advised anything over 208 pounds to notify his physician.. He reports he had to sleep in a sitting position last night due to the shortness of breath. He denies fever, sore throat, chills, cough, chest pain, palpitations, abdominal
pain, nausea, vomiting, diarrhea, urinary symptoms.
The patient had recent Admission 03/16 - 03/18/2024 status post left heart cath with balloon angioplasty with stent to vein graft to obtuse marginal. Patient had prior stent SVG to OM1-OM2. Cath also showed chronic total occlusion of [place]
circulation known and patent WEBB to LAD. His Lasix was changed to 80 mg once a day from 40 twice daily.
Patient has known history of LBBB, NSTEMI 03/16/2024, CAD status post CABG 2010, cardiac stenting 2022, chronic heart failure reduced EF 30-35% 03/16/2024, bioprosthetic SAVR 2015, CKD stage IIIb (creat 1.25 February 2024),DM2 HgbA1c 8.1
03/16/2024, Diabetic neuropathy, HTN, HLD, PAD, chronic pain syndrome with opioid dependency COPD/former smoker chronic normocytic anemia, right lower extremity arteriogram with bypass 2019, xiphoid removal
Medical History
Past Medical History
Past Medical History: Reports None
Additional Past Medical History:
CAD
Hypertension
Hyperlipidemia
NIDDM
HFrEF 30-35% 03/16/2024
CKD 3B creat 1.3
DM2
Diabetic neuropathy
PAD
right lower extremity arteriogram with bypass 2019
Chronic pain on chronic oral opiates
Normocytic anemia
COPD
Former smoker
Past Surgical History: Reports Other
Additional Past Surgical History:
03/16 - 03/18/2024 status post left heart cath with balloon angioplasty with stent to vein graft to obtuse marginal. Patient had prior stent SVG to OM1-OM2. Cath also showed chronic total occlusion of [place] circulation known and patent WEBB to LAD
cardiac stents
CABG (2010)
aortic valve replacement (2015)
tonsillectomy
xiphoid removal
RLE arteriogram with bypass (2019)
Social History
Tobacco: Former Smoker (quit in the )
Alcohol: None
Drug: None
Personal:
Living: With Family
Employment: Retired
Family History
Family History: Not pertinent
Allergies / Home Medications
Allergies reflects when Allergies were last updated in [facility].
Home Medications with original date entered in [facility]
Allergy/Medication List:
Allergies
Allergy/AdvReac Type Severity Reaction Status Date / Time
lisinopril Allergy cough Verified 05/10/24 09:35
Home Medications
multivitamin 1 ea PO DAILY Supplement 11/19/17
aspirin 81 mg tablet,delayed release 81 mg PO DAILY Blood clot prevention/tx 01/20/22
atorvastatin 80 mg tablet 80 mg PO QPM High cholesterol 01/20/22
nitroglycerin 0.4 mg sublingual tablet 0.4 mg sublingual [id number] PRN chest pain #30 tabs 10/16/22
clopidogrel 75 mg tablet (Plavix) 75 mg PO DAILY Blood Clot Prevention/Tx 04/04/23
valsartan 80 mg tablet 80 mg PO BID Heart Disease/Condition 11/16/23
insulin lispro 100 unit/mL subcutaneous pen (Admelog SoloStar U-100 Insulin lispro) 15 unit SC AC 12/31/23
metoprolol succinate 50 mg tablet,extended release 24 hr (Toprol XL) 50 mg PO BID #60 tabs 01/03/24
spironolactone 25 mg tablet 25 mg PO DAILY Heart disease/condition 30 days #30 tabs 01/03/24
vitamins A,C,W-odqz-jxztiw 2,148 mcg-113 mg-45 mg-17.4 mg tablet (PreserVision AREDS) 1 tab PO BID 03/16/24
furosemide 80 mg tablet 80 mg PO DAILY #30 tabs 03/18/24
oxycodone 10 mg tablet 10 mg PO Q6HPRN PRN moderate to severe pain #0 tabs 03/18/24
insulin glargine 100 unit/mL (3 mL) subcutaneous pen (Basaglar KwikPen U-100 Insulin) 20 - 30 unit SC HS 05/10/24
isosorbide mononitrate 30 mg tablet,extended release 24 hr 30 mg PO DAILY 05/10/24
metformin 1,000 mg tablet 1,000 mg PO BID 05/10/24
Review of Systems
-
History Source: Patient and Family ( Dang at bedside)
A 12 point ROS was completed and negative except as noted: Yes
Constitutional: Reports Weight Gain (3 pounds overnight); Denies Fever or Chills
EENT: Reports Other (Orthopnea); Denies Sore Throat or Runny Nose
Respiratory: Reports Trouble Breathing (Shortness of breath with orthopnea); Denies Cough
Cardiac: Denies Chest Pain, Diaphoresis, Palpitations or Syncope
Abdomen/GI: Denies Abdominal Pain, Nausea, Vomiting, Diarrhea, Constipated, Bloody Stools, Black Stools or Anorexia
: Denies Dysuria, Frequency, Flank Pain, Incontinence, Difficulty Voiding or Urgency
Musculoskeletal: Reports Edema (+1 bilateral leg edema) and Other (Right hip tenderness over sciatica secondary to cardiac rehab exercises); Denies Joint Pain
Skin: Denies Itching or Rash
Neurological: Denies Dizzy, Headache, Weakness or Numbness
Endocrine: Reports No Symptoms
Hematologic/Lymphatic: Reports No Symptoms
Psych: Reports Calm
Physical Exam
Vital Signs
Vital Signs
Temp Pulse Resp BP Pulse Ox
97.5 F 51 19 118/60 95
05/10/24 10:15 05/10/24 10:30 05/10/24 10:30 05/10/24 10:24 05/10/24 10:30
Physical Exam
General: Comfortable, Conversant and Pain (Right hip/buttocks); No Fever or Chills
HEENT: NormoCephalic, Anicteric, Moist mucous membranes, PERRLA, [place] Conjunctivae and No Ptosis
Respiratory: Rales (Fine rales at right and left lower base); No Wheezes, Rhonchi or Crackles
Cardiac: Regular Rhythm, Murmur (3/6 systolic murmur) and Peripheral Edema (+1 bilateral lower legs); No Rub, Gallop or JVD
Breast: Deferred by me
GI: Soft, Non Tender, Non Distended and Normal Bowel Sounds
Rectal: Deferred by Provider
Genito-urinary: Deferred by me
Musculoskeletal: Clubbing (Of fingernails with some mild duskiness at base of nails however hands are cold to touch), Edema, Left Lower Extremity (+1 edema pitting), Edema, Right Lower Extremity (+1 pitting) and Other (Right hip tenderness over
sciatica secondary to cardiac rehab exercises); No Edema, Left Upper Extremity or Edema, Right Upper Extremity
Skin: Warm and Dry; No Rash
Neuro: AO x 3, No Motor Deficits, Nonfocal/grossly intact, Cranial Nerves Intact and No Sensory Deficits; No Slurred Speech, Facial Droop, Tremors or Sedated
Psych: Calm
Laboratory Results
-
05/10/24 10:24
05/10/24 10:24
Laboratory Results
Total Bilirubin 1.1 mg/dl (0.2-1.3) 05/10/24 10:24
AST 22 U/L (17-59) 05/10/24 10:24
ALT 18 U/L (0-50) 05/10/24 10:24
Alkaline Phosphatase 70 U/L (38-126) 05/10/24 10:24
Troponin I 0.046 ng/ml H* 05/10/24 10:24
Impression/Plan
-
Impression/plan:
Admit to telemetry
#Acute on chronic CHF with reduced EF 30-35% 03/16/2024
I/O, daily weights patient's dry weight 205 wt gain 3 LBS overnight currently 208 LBS/94.8kg
-IV Lasix 80 mg given in ER patient on 80 mg p.o. daily
-Will give IV Lasix 40 mg twice daily
-Consult CBC cardiology
-continue Spironolactone 25 mg daily
-Cholesterol-lowering, fluid restrict 40 ounce, diabetic diet
MUNIR 03/24/2024:
1. Moderately reduced left ventricular systolic function.
2. Left ventricular ejection fraction is 30-35%.
3. Bioprosthethetic aortic valve is in place with a peak/mean of 37/22mmHg.
When compared to the previous report 08/16 the transaortic gradients have increased. Previously peak of 19 mmHg and a mean gradient of 12 mmHg.
#Acute right sided sciatica secondary to cardiac rehab exercises
-Continue patient's chronic oxycodone 10 mg every 6 hours as needed moderate to severe pain, Tylenol as needed mild pain
-Add K-pad heat for comfort
#HTN-benign
BP 118/60
-Continue Imdur 30 mg daily, Toprol XL 50 mg twice daily with hold parameters
-Continue valsartan 80 mg p.o. twice daily with hold parameters
#CAD/ NSTEMI 03/16/2024
-Continue DAPT therapy aspirin 81 mg daily, Plavix 75 mg daily, atorvastatin 80 mg every afternoon
-Continue Imdur 30 mg daily, Toprol XL 50 mg twice daily with hold parameters
PTCA with a 4.0 x 20 NC balloon with stent to vein graft to obtuse marginal. Patient had prior stent SVG to OM1-OM2.
03/17/2024:S/P Cardiac Cath shows chronic total occlusion of [place] circulation (known) and patent WEBB to LAD.
The sequential SVG to OM1 to OM2 to RPDA has a history of prior PCI x2, the second performed for ISR of the first stent.
The second stent was deployed through the side struts of the first stent, beveling the first stent superiorly.
Injection of the first (superior) stent shows occlusion. Patency of the SVG cannot be assessed without injecting the second/inferior stent-Per cardiology note
-There was a hazy, 60-70% ISR lesion within the ostial SVG stent.
#Nonischemic myocardial injury troponins trending down from NSTEMI March 16, 2024 with peak at 1.380
Troponin currently 0.046 no chest pain, will trend
#Chronic LBBB
#Bioprosthetic SAVR 2015
#CKD stage IIIb
-(creat 1.25 February 2024)
Creat 1.3
-Follow BMP
#DM2
#Diabetic neuropathy
HgbA1c 8.1 03/16/2024
Accu-Cheks with SSI
-Continue insulin glargine 20 units at bedtime( patient takes 20-30 units at bedtime )
-Continue lispro 15 units subcu AC
--Hold metformin
#HLD
-Check lipid profile
-Continue atorvastatin 80 mg every afternoon
#PAD
-Continue aspirin 81 mg daily, Plavix 75 mg daily
Chronic pain syndrome with opioid dependency
-Continue oxycodone 10 mg every 6 hours as needed moderate to severe pain
#COPD-no acute exacerbation
#Former smoker total 15 years 1 pack a day quit age 45
#Chronic anemia�normocytic
Hgb 11.9 appears near baseline
DVT prophylaxis
-Subcu heparin
-
DNR per patient with Dang at bedside and the ER nurse
[2024-05-10] MEDS: LASIX 80 MG IV (13:47)
--- NOTE | 2024-05-10 14:09 | W.PN.UPDATE ---
Update Note
Progress Note Update
This note serves as an addendum to the H&P by thermostat mechanic YASMANY
Kathie LEONEL
HPI
78M HX CAD status post CABG and stenting, hyperlipidemia, diabetes, chr HFrEF with LVEF 30 -35 on 80 mg of Lasix daily sen at ER:
- report compliance with his Lasix.
- for shortness of breath started last evening.
- he had to sleep in a sitting position last evening.
- difficulty sleeping and felt like there was a rattling in his chest.
- some increased lower extremity swelling.
PMHX include CAD, GERD, HTN, Hypercholesterolemia, NIDDM, [place], Psychiatric (Depression) and Other (chronic pain, diabetic peripheral neuropathy, peripheral arterial disease)
ROS
Denies associated chest pain.
Denies fever or cough.
Denies abdominal pain or GI complaints.
Denies additional acute medical complaints
Reviewed VS:
Selected Entries
05/10/24
09:32 05/10/24
10:19 05/10/24
10:24
Temp 97.8 F
Pulse 54 52
Resp Rate 20 14
Blood pressure 129/55
SaO2 96 97
Oxygen Mode of Delivery Room air Room air
05/10/24
10:24
Temp
Pulse
Resp Rate
Blood pressure 118/60
SaO2
Oxygen Mode of Delivery
PE
Gen: not toxic, NAD
HEENT: anicteric
Neck: no JVD
Lungs: symmetric AE. Rales at both bases
Cor: RRR Loud SM ay Lt USB
Abdomen: soft
CITY DISPATCH SUPERVISOR: AAO3
MS: b/l Kitty edema
Psych; nl mood and affect
Data
12/31/23 01/03/24 03/16/24
17:50 06:38 13:23
WBC
Hgb
Carbon Dioxide
Creatinine
eGFR 56.23
Troponin I
Txu-L-Uhkksnnlwoq Pept 2920 3510
03/16/24 03/18/24 03/18/24
17:35 04:53 10:03
WBC 10.3
Hgb 11.2 L
Carbon Dioxide
Creatinine
eGFR
Troponin I 0.482 H* D 0.654 H*
Hmi-I-Pxczaaielxb Pept
05/10/24
10:24
WBC 11.5 H
Hgb 11.9 L
Carbon Dioxide 31 H
Creatinine 1.3
eGFR 56.23
Troponin I 0.046 H*
Gug-T-Rnlijbqdksc Pept 3170
CXR
1. MODERATE ACUTE INTERSTITIAL and ALVEOLAR CARDIOGENIC PULMONARY EDEMA.
2. Small right pleural effusion.
3. Mild cardiomegaly.
4. Previous CABG and aortic valve replacement.
EKG
SINUS BRADYCARDIA WITH 1ST DEGREE A-V BLOCK
LEFT BUNDLE BRANCH BLOCK
ABNORMAL ECG
WHEN COMPARED WITH ECG OF 18-MAR-2024 04:26,
INVERTED T WAVES HAVE REPLACED NONSPECIFIC T WAVE ABNORMALITY IN LATERAL LEADS
Confirmed by ANTONIO AGUIAR MD ([id number]) on 05/10/2024 10:38:28 AM
03/18/24 TTE
Moderately reduced left ventricular systolic function.
LVEF 30-35
Global hypokinesis.
ASSESSMENT & PLAN
Acute on Chr HFrEF: LVEF 30-35 as of Feb 2024
Progressive Hou, orthopneic
HX chr HFrEF PO Lasix 80 mg daily
HX AoVR
Somewhat elevated pro BNP but near baseline
- IV Lasix 40 BID - f/u daily Wt
- on GDMT: ARB ( Valsartan) + MRA ( Spiranolactone) + BB ( Metoprol XL )
- on [employer]BER PO IMN
- Daily BMP
- CBC card consult
Borderline elavated TPNI with chronic elevation. No CP
Chronic Sinus brenda on Metoprolol XL
HX CAD/CABG
- c/w [employer] TE[employer] MEMBER DAPL
- Trend TPNI till peak
Mild CKD 3a; stable
- baseline Cr low 1s. Baseline eGFR mid 50s
- trend Cr during IV diuresis
Chronic normocytic anemia : stable
baseline Hgb 11s
- Observe hgb
DVT Px: LMWH
DNR
IP TLM
[2024-05-10] MEDS: ROXICODONE 10 MG PO ×2 (14:16→22:00)
--- NOTE | 2024-05-10 15:33 | CON.CAR ---
Addendum entered and electronically signed by Griish Rajput MD 05/10/24 16:11:
Patient seen and examined in collaboration with JANITORIAL ACCOUNT MANAGER; agree with below.
-78-year-old male with coronary artery disease, bioprosthetic AVR (2015), chronic HFrEF (30-35%), diabetes, COPD, LBBB, PAD, and obesity admitted with shortness of breath; Cardiology consulted for CHF management.
-Recommend Lasix 80 mg IV BID for now.
-Patient with notable cardiac murmur on examination; will obtain a repeat echocardiogram tomorrow.
-Telemetry monitoring; will follow.
Original Note:
Consultation
Consultation Request
Date/Time Consultation Requested: 05/10/2024 14:00
Date/Time Consultation Performed: 05/10/2024 15:05
Requesting Provider: RAMONA Quintero
Performing Provider: RAMONA Hartley for Dr. Rajput
Reason for Consultation: Acute on chronic HFrEF
Medical History
-
Chief Complaint: Shortness of breath
History of Present Illness:
Bhavik Spring is a 78-year-old male (known to Dr. Frias, his primary trimmer operator), with CAD (CABG 2010, NSTEMI with PCI to VG, 02/2019), bio-SAVR (2015) with moderate stenosis, HFrEF/ICM (EF 30-35%), DM, COPD, LBBB, and PAD who presented to the
emergency room with a chief complaint of shortness of breath. Yesterday morning, he noticed he had some lower extremity edema. Then last evening he was unable to sleep due to shortness of breath and 'rattling in his chest'. He tried to sleep in a
chair. He did not weigh himself this morning but did not have significant weight gain yesterday. He had an abnormal proBNP in addition to a chest x-ray that showed pulmonary edema. His shortness of breath is improving since arrival to the
emergency room and administration of furosemide
Past Medical History
Past Medical History: CAD, CHF, COPD, HTN, Hypercholesterolemia, Renal Failure (CKD stage III) and Valvular Disease (Status post SAVR)
Past Surgical History: Cardiac (CABG, SAVR)
Social History
Tobacco: Former Smoker
Alcohol: None
Drug: None
Personal:
Living: With Family
Employment: Retired
Family History
Family History: Reviewed & Not Pertinent
Allergies / Home Medications
Allergy/AdvReac Type Severity Reaction Status Date / Time
lisinopril Allergy cough Verified 05/10/24 09:35
�Medication �Instructions �Recorded �Confirmed �Type
multivitamin 1 ea PO DAILY Supplement 11/19/17 05/10/24 History
aspirin 81 mg tablet,delayed 81 mg PO DAILY Blood clot 01/20/22 05/10/24 History
release prevention/tx
atorvastatin 80 mg tablet 80 mg PO QPM High cholesterol 01/20/22 05/10/24 History
nitroglycerin 0.4 mg sublingual 0.4 mg sublingual [id number] PRN 10/16/22 05/10/24 Rx
tablet chest pain #30 tabs
clopidogrel 75 mg tablet (Plavix) 75 mg PO DAILY Blood Clot 04/04/23 05/10/24 History
Prevention/Tx
valsartan 80 mg tablet 80 mg PO BID Heart 11/16/23 05/10/24 History
Disease/Condition
insulin lispro 100 unit/mL 15 unit SC AC 12/31/23 05/10/24 History
subcutaneous pen (Admelog SoloStar
U-100 Insulin lispro)
metoprolol succinate 50 mg 50 mg PO BID #60 tabs 01/03/24 05/10/24 Rx
tablet,extended release 24 hr
(Toprol XL)
spironolactone 25 mg tablet 25 mg PO DAILY Heart 01/03/24 05/10/24 Rx
disease/condition 30 days #30 tabs
vitamins A,C,F-izud-sbyzsx 2,148 1 tab PO BID 03/16/24 05/10/24 History
mcg-113 mg-45 mg-17.4 mg tablet
(PreserVision AREDS)
furosemide 80 mg tablet 80 mg PO DAILY #30 tabs 03/18/24 05/10/24 Rx
oxycodone 10 mg tablet 10 mg PO Q6HPRN PRN moderate to 03/18/24 05/10/24 Rx
severe pain #0 tabs
insulin glargine 100 unit/mL (3 20 - 30 unit SC HS 05/10/24 05/10/24 History
mL) subcutaneous pen (Basaglar
KwikPen U-100 Insulin)
isosorbide mononitrate 30 mg 30 mg PO DAILY 05/10/24 05/10/24 History
tablet,extended release 24 hr
metformin 1,000 mg tablet 1,000 mg PO BID 05/10/24 05/10/24 History
Review of Systems
-
History Source: Patient
All other systems: Negative unless noted
Constitutional: Fatigue
EENT: No Symptoms
Respiratory: Trouble Breathing
Cardiac: No Symptoms
Abdomen/GI: No Symptoms
: No Symptoms
Musculoskeletal: Joint Pain and Edema
Skin: No Symptoms
Neurological: No Symptoms
Endocrine: No Symptoms
Hematologic/Lymphatic: No Symptoms
Physical Exam
Vital Signs
Temp Pulse Resp BP Pulse Ox
97.5 F 54 22 142/63 97
05/10/24 10:15 05/10/24 14:30 05/10/24 14:30 05/10/24 14:00 05/10/24 14:15
Lab Results
05/10/24 10:24
05/10/24 10:24
Troponin I 0.046 ng/ml H* 05/10/24 10:24
Krz-X-Jolnwpxvqbj Pept 3170 pg/ml 05/10/24 10:24
Physical Exam
General: Well Developed, Well Nourished, No Apparent Distress and Comfortable
HEENT: Normocephalic, Anicteric and Moist Mucous Membranes
Respiratory: Crackles and Non Labored Respirations
Cardiac: S1/S2, Regular Rhythm, Murmur and Peripheral Edema
Breast: Deferred by me
GI: Soft, Non Tender, Non Distended and Normal Bowel Sounds
Rectal: Deferred by Provider
Genito-urinary: No Costovertebral Tender
Musculoskeletal: No Clubbing and No Cyanosis
Skin: Warm and Dry
Neuro: AO x 3
Hematologic/Lymphatic: No Lymphadenopathy
Psych: Calm
Impression / Plan
-
I/P: 78M with CAD (CABG 2010, NSTEMI with PCI to VG, 02/2019), bio-SAVR (2016) with moderate stenosis, HFrEF/ICM (EF 30-35%), DM, COPD, LBBB, and PAD who presented to the emergency room with a chief complaint of shortness of breath
Outpatient trimmer operator: Dr. Frias
HFrEF (EF 30-35%), acute on chronic
Ischemic cardiomyopathy
-Reports adherence with sodium restriction and medication at home
-Diuresis with furosemide 80 mg IV twice daily, this requires intensive monitoring
-LVEDP of 29 mmHg at 94.3 kg, current weight is on stretcher in ER, standing scale weights only
-Trend daily weight, I/O, and BMP with diuresis
-Heart failure education
-GDMT as tolerated:
-Beta-markus: Metoprolol succinate 50 mg BID
-SGLT2: Cost prohibitive
-VICKY/ARB: Valsartan 80 mg BID
-Isosorbide/hydralazine: Isosorbide mononitrate 30 mg
-ARNI: Cost prohibitive
-MRA: Spironolactone 25 mg daily
-ICD: Re-evaluate LVEF (LBBB)
-Update echocardiogram
Abnormal troponin, nonischemic myocardial injury in the setting of acute heart failure
-Chest pain-free
-Chronic LBBB, lateral T wave inversion on EKG
-Trend to peak
Coronary artery disease
-CABG 2010 and NSTEMI with PCI to ostial SVG 02/2024, on DAPT
-Continue medical therapy
Bioprosthetic SAVR
-Echocardiogram with increased gradients, pullback 31 mmHg during cardiac catheterization
-Update echo
CKD stage III, follow with diuresis
COPD, no acute exacerbation
Type 2 diabetes mellitus, per primary
Dyslipidemia, on atorvastatin, continue
LBBB, chronic
Data Reviewed
-
EKG: Report Reviewed by me
Radiology: Report Reviewed by me
Medical Tests (Nuc Med, Echo etc): Report Reviewed by me
Labs: Labs Reviewed by me
Old Records: Reviewed
[2024-05-10 17:00] LABS: Glucose - Point of Care 135 mg/dl (70-99)
[2024-05-10 17:22] LABS: Troponin I 0.049 ng/ml
--- NOTE | 2024-05-10 17:30 | PTCARENOTE ---
Pt walked to bed with cane from ED stretcher. Weight obtained via standing scale. at bedside. AAOx3. VSS. Pt denies SOB. Admission completed by ED nurse, pt oriented to unit by this RN. Call wilcox within reach. Pt ordering dinner, no complains
at this time.
[2024-05-10] MEDS: LIPITOR 80 MG PO (17:54)
[2024-05-10] MEDS: NOVOLOG FLEXPEN 15 UNITS SC (17:56)
[2024-05-10 21:43] LABS: Glucose - Point of Care 102 mg/dl (70-99)
[2024-05-10] MEDS: DIOVAN 80 MG PO (21:48)
[2024-05-10] MEDS: HEPARIN 5000 UNITS SC (21:48)
[2024-05-10] MEDS: LASIX 40 MG IV (21:49)
[2024-05-10] MEDS: OCUVITE SOFTGEL 1 CAP PO (21:49)
[2024-05-10] MEDS: LANTUS 0.2 UNITS SC (21:50)
[2024-05-10 23:17] LABS: Troponin I 0.059 ng/ml
[2024-05-11] VITALS (8 sets, daily range): BP systolic 114–158; BP diastolic 46–78; PULSE 97; O2SAT 99–100; BMI 29.0
--- NOTE | 2024-05-11 04:53 | DOWNTIME ---
There was a Jump or Fall Client [employer] Downtime on 05/11/2024 from 0100 to 05/12/2023 at 0420 . Downtime documentation of patient's care, including medication administrations, has been reconciled in the electronic record per guidelines. Refer to the
patient's paper chart under the miscellaneous tab to see printed paper medication records and downtime forms.
[2024-05-11] MEDS: ROXICODONE 10 MG PO ×2 (05:41→22:36)
[2024-05-11 06:34] LABS: % Basophils 0.5 % (0-2); % Eosinophils 2.5 % (0-6); % Immature Granulocytes 0.5 % (0-0.5); % Lymphocytes 20.1 % (20.5-51.1); % Monocytes 8.9 % (1.7-9.3); % Neutrophils 67.5 % (42.2-75.2); Absolute Basophils 0.1 10^3/uL (0-0.2); Absolute Eosinophils 0.3 10^3/uL (0-0.7); Absolute Immature Granulocytes 0.1 10^3/uL (0-0.05); Absolute Lymphocytes 2.1 10^3/uL (1.2-3.4); Absolute Monocytes 0.9 10^3/uL (0.1-0.6); Hematocrit 36.6 % (39.0-52.0); Hemoglobin 12.5 g/dL (13.0-18.0); Mean Corp Hgb Conc. 34.2 g/dL (33.0-37.0); Mean Corpuscular Hgb 30.8 pg (27.0-31.0); Mean Corpuscular Volume 90.1 fL (80.0-94.0); Mean Platelet Volume 11.3 fL (7.4-10.4); Nucleated Red Blood Cells % 0 % (-); Platelet Count 259 10^3/uL (130-400); Red Blood Cell Count 4.06 10^6/uL (4.70-6.10); Red Cell Dist. Width 13.4 % (11.5-14.5); White Blood Cell Count 10.4 10^3/uL (4.8-10.8)
[2024-05-11 06:46] LABS: ALT (SGPT) 17 U/L (0-50); AST (SGOT) 23 U/L (17-59); Albumin 4.9 g/dl (3.5-5.0); Alkaline Phosphatase 83 U/L (38-126); Blood Urea Nitrogen 21 mg/dl (9-20); Calcium 10.1 mg/dl (8.4-10.2); Carbon Dioxide 28 mmol/L (22-30); Chloride 100 mmol/L (98-107); Estimated Creatinine Clearance 52 ml/min; Glucose 91 mg/dl (70-99); HDL Cholesterol 32 mg/dl; LDL Cholesterol, Calculated 62 mg/dl; Magnesium 2.1 mg/dl (1.6-2.3); Potassium 3.9 mmol/L (3.5-5.1); Sodium 141 mmol/L (135-145); Total Bilirubin 1.5 mg/dl (0.2-1.3); Total Cholesterol 120 mg/dl (50-199); Total Protein 7.3 g/dl (6.3-8.2); Triglyceride 130 mg/dl (10-149); Very Low Density Lipoprotein 26 mg/dl (0-30); eGFR > 60.00
[2024-05-11 07:25] LABS: Glucose - Point of Care 117 mg/dl (70-99)
[2024-05-11] MEDS: IMDUR (EXTENDED RELEASE) 30 MG PO (07:42)
[2024-05-11] MEDS: DIOVAN 80 MG PO (07:42)
[2024-05-11] MEDS: OCUVITE SOFTGEL 1 CAP PO ×2 (07:43→21:23)
[2024-05-11] MEDS: LASIX 80 MG IV ×2 (07:43→15:40)
[2024-05-11] MEDS: ALDACTONE 25 MG PO (07:44)
[2024-05-11] MEDS: THERAGRAN 1 TABLET PO (07:44)
[2024-05-11] MEDS: ASPIR LOW (ENTERIC COATED) 81 MG PO (07:44)
[2024-05-11] MEDS: PLAVIX 75 MG PO (07:44)
[2024-05-11] MEDS: NOVOLOG FLEXPEN 15 UNITS SC ×3 (07:46→18:13)
[2024-05-11] MEDS: HEPARIN 5000 UNITS SC ×2 (07:48→21:26)
[2024-05-11 08:04] LABS: Direct Bilirubin 0.3 mg/dl (0.0-0.4); LDH 171 U/L (120-246)
--- NOTE | 2024-05-11 09:13 | W.PN.HOSP.TC ---
Addendum entered and electronically signed by Jonathon White MD 05/11/24 11:58:
#Gilbert
indirect bilirubinemia with normal retics and LDH
Original Note:
Today's Communication/Plan
-
see PN
Assessment / Plan
Assessment / Plan
78yo M with PMHx of HTN, HLD, DM, CAD s/p CABG, recent cath in Feb 2024 with PTCA 2/2 ISR lesion in ostial SVG stent, HFrEF, bioprosthetic AV came with chest congestion and LE swelling for 24h. Did not report recent infection, medication or diet
non-compliance, rapidly improved on IV LAsix
A/P:
#Acute on chronic HFrEF exacerbation
#CAD s/p CABG
#1st degree AVB
#Iscemic cardiomyopathy
#Bioprostetic AV
#Mild troponin elevation 2/2 CHF
Previous Echo with increased gradiaents - repeat Echo
LAsix, follow Cr, electrolytes, weifght and I&O
Cardio consult
cont ASA, Plavix
#DM type 2 with neuropahty
cont insulin, Accuchecks and DM diet
#HLD
#Essential HTN
cont home meds
DVT ppx hep
DNR/DNI
I have spent at least 58min reviewing chart, test results, communication with consultants and providing direct patient care
Anticipated Discharge: 24 - 48 hours
Subjective/Interval History
-
Date of Service: May 11, 2024
Objective Data
-
Labs:
Laboratory Results
05/11/24
05:32
WBC 10.4
Hgb 12.5 L
Hct 36.6 L
Plt Count 259
Sodium 141
Potassium 3.9
Chloride 100
Carbon Dioxide 28
BUN 21 H
Creatinine 1.2
Glucose 91
Calcium 10.1
Total Bilirubin 1.5 H
AST 23
ALT 17
Alkaline Phosphatase 83
Vital Signs:
Vital Signs
Temp Pulse Resp BP Pulse Ox
97.8 F 59 18 149/62 98
05/11/24 07:20 05/11/24 07:46 05/11/24 07:20 05/11/24 07:20 05/11/24 07:20
I&O
05/10/24 05/11/24 05/12/24
06:59 06:59 06:59
Intake Total 480 / 480 180 / 180
Output Total 5000 / 5000 250 / 250
Balance -4520 / -4520 -70 / -70
Review of Systems
-
History Source: Patient
All other systems: Reviewed and negative
Physical Exam
-
General: No Apparent Distress
HEENT: Normocephalic
Respiratory: Clear to Auscultation
Cardiac: Regular Rhythm
GI: Soft, Nontender and Nondistended
Musculoskeletal: No Clubbing, No Cyanosis and No Edema
Neuro: Awake, Alert, Oriented and AO x 3
Psych: Calm
--- NOTE | 2024-05-11 11:14 | W.PN.CD ---
Today's Communication / Plan
-
Increase Metoprolol succinate and valsartan
Will offer outpatient BiV ICD implant
One more day of IV diuresis
Recheck cost of meds
Impression / Plan
-
Background: 78M with CAD (CABG 2010, NSTEMI with PCI to VG, 02/2019), bio-SAVR (2016) with moderate stenosis, HFrEF/ICM (EF 30-35%), DM, COPD, LBBB, and PAD who presented to the emergency room with a chief complaint of shortness of breath
Outpatient policy value calculator: Dr. Frias
HFrEF (EF 30-35%), acute on chronic from an Ischemic cardiomyopathy
-Reports adherence with sodium restriction and medication at home
-Diuresis with furosemide 80 mg IV twice daily, this requires intensive monitoring
-LVEDP of 29 mmHg at 94.3 kg, current weight is on stretcher in ER, standing scale weights only
-Trend daily weight, I/O, and BMP with diuresis
-Heart failure education
-GDMT as tolerated:
-Beta-markus: Metoprolol succinate 50 mg BID => will increase
-SGLT2: Cost prohibitive => will recheck cost
-VICKY/ARB: Valsartan 80 mg BID => will increase
-Isosorbide/hydralazine: Isosorbide mononitrate 30 mg
-ARNI: Cost prohibitive => will recheck cost
-MRA: Spironolactone 25 mg daily
-ICD: Re-evaluate LVEF (LBBB) => will offer outpatient BiV ICD implant
-Updated echocardiogram (limited is unchanged from earlier this month
Abnormal troponin, nonischemic myocardial injury in the setting of acute heart failure
Coronary artery disease
-CABG 2010 and NSTEMI with PCI to ostial SVG 02/2024, on DAPT
-Continue medical therapy
Bioprosthetic SAVR
-Echocardiogram with increased gradients, pullback 31 mmHg during cardiac catheterization
CKD stage III, follow with diuresis
COPD, no acute exacerbation
Type 2 diabetes mellitus, per primary
Dyslipidemia, on atorvastatin, continue
LBBB, chronic
Subjective: Feels better
Physical Exam
Vital Signs/Labs
Vital Signs
Temp Pulse Resp BP Pulse Ox
97.8 F 59 18 149/62 98
05/11/24 07:20 05/11/24 07:46 05/11/24 07:20 05/11/24 07:20 05/11/24 07:20
05/10/24 05/11/24 05/12/24
06:59 06:59 06:59
Actual Weight 91.626 kg
05/11/24 05:32
05/11/24 05:32
Magnesium 2.1 mg/dl (1.6-2.3) 05/11/24 05:32
Triglycerides 130 mg/dl (10-149) 05/11/24 05:32
LDL Cholesterol, Calc 62 mg/dl 05/11/24 05:32
VLDL Cholesterol, Calc 26 mg/dl (0-30) 05/11/24 05:32
HDL Cholesterol 32 mg/dl 05/11/24 05:32
05/10/24
10:24
Gji-H-Fpjuforhula Pept 3170
LAB Results
05/10/24 05/10/24 05/10/24
10:24 16:47 22:38
Troponin I 0.046 H* 0.049 H* 0.059 H*
05/11/24
07:13
Troponin I 0.060 H*
Physical Exam
Constitutional: No acute distress
EENT: Anicteric
Cardiovascular: Rhythm & rate is regular and Pedal edema is absent
Respiratory: Respiratory effort normal and Lungs clear to auscul.
GI: Soft and Distention absent
Neuro/Psych: AO x 3
Data Reviewed
-
Date of Service: May 11, 2024
[2024-05-11 11:53] LABS: Reticulocyte Count 2.3 % (0.4-2.8)
[2024-05-11 12:17] LABS: Glucose - Point of Care 157 mg/dl (70-99)
--- NOTE | 2024-05-11 14:40 | CARDSERVLU ---
Echocardiogram with Lumason completed after protocol screening completed. Allergies verified.
Patent IV site: _R AC____
IV site flushed with 0.9% NaCl pre and post administration.
Diluted bolus method utilized to enhance visualization of ventricular kwong.
Total volume given: __2.5__ mL
Patient tolerated all procedures well without complications.
[2024-05-11 16:42] LABS: Glucose - Point of Care 321 mg/dl (70-99)
--- NOTE | 2024-05-11 16:51 | CM ---
Alert awake oriented patient who lives with his Dang who lives in a 2 story home with 5 step to enter and 12 steps to bed and bathroom. He is independent in driving and in all activities of daily living.He was offered VN he declined need.Pt
uses cane prn.
DHVN hx / No SNF history
Pharmacy [facility]
PCP DR Weinberg
PLAN Home Declined VN
[2024-05-11] MEDS: LIPITOR 80 MG PO (17:10)
[2024-05-11 20:36] LABS: Glucose - Point of Care 321 mg/dl (70-99)
[2024-05-11] MEDS: DIOVAN 160 MG PO (21:24)
[2024-05-11] MEDS: TOPROL XL 75 MG PO (21:25)
[2024-05-11] MEDS: LANTUS 0.2 UNITS SC (21:27)
[2024-05-12 03:13] VITALS: BP 136/60
[2024-05-12] MEDS: ROXICODONE 10 MG PO ×2 (05:32→11:32)
[2024-05-12 05:43] VITALS: BMI 28.3
[2024-05-12 06:00] VITALS: BMI 28.3
[2024-05-12 06:53] LABS: Glucose - Point of Care 240 mg/dl (70-99)
[2024-05-12 07:05] VITALS: BP 128/54
[2024-05-12 07:33] LABS: % Basophils 0.4 % (0-2); % Eosinophils 2.3 % (0-6); % Immature Granulocytes 0.4 % (0-0.5); % Lymphocytes 20.2 % (20.5-51.1); % Neutrophils 66.7 % (42.2-75.2); Absolute Eosinophils 0.3 10^3/uL (0-0.7); Absolute Lymphocytes 2.2 10^3/uL (1.2-3.4); Absolute Monocytes 1.1 10^3/uL (0.1-0.6); Absolute Neutrophils 7.3 10^3/uL (1.4-6.5); Hematocrit 37.6 % (39.0-52.0); Hemoglobin 13.1 g/dL (13.0-18.0); Mean Corp Hgb Conc. 34.8 g/dL (33.0-37.0); Mean Corpuscular Hgb 30.8 pg (27.0-31.0); Mean Corpuscular Volume 88.5 fL (80.0-94.0); Mean Platelet Volume 11.2 fL (7.4-10.4); Nucleated Red Blood Cells % 0 % (-); Platelet Count 286 10^3/uL (130-400); Red Blood Cell Count 4.25 10^6/uL (4.70-6.10); Red Cell Dist. Width 13.5 % (11.5-14.5); White Blood Cell Count 10.9 10^3/uL (4.8-10.8)
[2024-05-12] MEDS: DIOVAN 160 MG PO (07:45)
[2024-05-12] MEDS: IMDUR (EXTENDED RELEASE) 30 MG PO (07:45)
[2024-05-12] MEDS: OCUVITE SOFTGEL 1 CAP PO (07:45)
[2024-05-12] MEDS: THERAGRAN 1 TABLET PO (07:46)
[2024-05-12] MEDS: ALDACTONE 25 MG PO (07:46)
[2024-05-12] MEDS: ASPIR LOW (ENTERIC COATED) 81 MG PO (07:46)
[2024-05-12] MEDS: PLAVIX 75 MG PO (07:46)
[2024-05-12] MEDS: LASIX 80 MG IV (07:47)
[2024-05-12] MEDS: HEPARIN 5000 UNITS SC (07:47)
--- NOTE | 2024-05-12 07:52 | W.PN.CD ---
Today's Communication / Plan
-
PO diuretics
Cont meds
Awaiting updated costs of Entresto and sglt2i
We will sign off please call with questions/concerns.
Impression / Plan
-
Background: 78M with CAD (CABG 2010, NSTEMI with PCI to VG, 02/2019), bio-SAVR (2016) with moderate stenosis, HFrEF/ICM (EF 30-35%), DM, COPD, LBBB, and PAD who presented to the emergency room with a chief complaint of shortness of breath
Outpatient car bracer: Dr. Frias
HFrEF (EF 30-35%), acute on chronic from an Ischemic cardiomyopathy
-Reports adherence with sodium restriction and medication at home
-transition to PO 80 mg lasix
-LVEDP of 29 mmHg at 94.3 kg, current weight is on stretcher in ER, standing scale weights only
-Trend daily weight, I/O, and BMP with diuresis
-Heart failure education
-GDMT as tolerated:
-Beta-markus: Metoprolol succinate 50 mg BID => Now at 75 mg bid
-SGLT2: Cost prohibitive => will recheck cost
-VICKY/ARB: Valsartan 80 mg BID => now at 160 bid
-Isosorbide/hydralazine: Isosorbide mononitrate 30 mg
-ARNI: Cost prohibitive => will recheck cost
-MRA: Spironolactone 25 mg daily
-ICD: Re-evaluate LVEF (LBBB) => will offer outpatient BiV ICD implant
-Updated echocardiogram (limited is unchanged from earlier this month
Abnormal troponin, nonischemic myocardial injury in the setting of acute heart failure
Coronary artery disease
-CABG 2010 and NSTEMI with PCI to ostial SVG 02/2024, on DAPT
-Continue medical therapy
Bioprosthetic SAVR
-Echocardiogram with increased gradients, pullback 31 mmHg during cardiac catheterization
CKD stage III, follow with diuresis
COPD, no acute exacerbation
Type 2 diabetes mellitus, per primary
Dyslipidemia, on atorvastatin, continue
LBBB, chronic
Subjective: Continues to feel good asking to leave
Physical Exam
Vital Signs/Labs
Vital Signs
Temp Pulse Resp BP Pulse Ox
97.7 F 56 18 128/54 97
05/12/24 07:05 05/12/24 07:05 05/12/24 07:05 05/12/24 07:05 05/12/24 07:05
05/11/24 05/12/24 05/13/24
06:59 06:59 06:59
Actual Weight 202 lb 197 lb 4 oz
05/12/24 07:03
Magnesium 2.1 mg/dl (1.6-2.3) 05/11/24 05:32
Triglycerides 130 mg/dl (10-149) 05/11/24 05:32
LDL Cholesterol, Calc 62 mg/dl 05/11/24 05:32
VLDL Cholesterol, Calc 26 mg/dl (0-30) 05/11/24 05:32
HDL Cholesterol 32 mg/dl 05/11/24 05:32
05/10/24
10:24
Qqb-T-Esxjlrzoaup Pept 3170
LAB Results
05/10/24 05/10/24 05/10/24
10:24 16:47 22:38
Troponin I 0.046 H* 0.049 H* 0.059 H*
05/11/24
07:13
Troponin I 0.060 H*
Physical Exam
Constitutional: No acute distress and Comfortable
EENT: Anicteric
Cardiovascular: Rhythm & rate is regular and Pedal edema is absent
Respiratory: Respiratory effort normal and Lungs clear to auscul.
GI: Soft
Neuro/Psych: AO x 3
Data Reviewed
-
Date of Service: May 12, 2024
EKG: Tracing Personally Visualized and interpreted (sr)
Echo: Report Reviewed by me
Labs: Labs Reviewed by me
[2024-05-12] MEDS: NOVOLOG FLEXPEN 15 UNITS SC ×2 (07:54→11:44)
[2024-05-12 07:55] LABS: ALT (SGPT) 16 U/L (0-50); AST (SGOT) 20 U/L (17-59); Albumin 4.9 g/dl (3.5-5.0); Alkaline Phosphatase 83 U/L (38-126); Blood Urea Nitrogen 25 mg/dl (9-20); Calcium 10.2 mg/dl (8.4-10.2); Carbon Dioxide 24 mmol/L (22-30); Chloride 98 mmol/L (98-107); Estimated Creatinine Clearance 52 ml/min; Glucose 263 mg/dl (70-99); Potassium 4.2 mmol/L (3.5-5.1); Sodium 136 mmol/L (135-145); Total Bilirubin 1.5 mg/dl (0.2-1.3); Total Protein 7.2 g/dl (6.3-8.2); eGFR > 60.00
[2024-05-12] MEDS: TOPROL XL PO (07:56)
--- NOTE | 2024-05-12 09:30 | CM ---
Received consult for Entresto, Jardiance and Farxiga. Placed a call to [facility], Adam [address], and spoke with a tech named, Madonna who provided the following information: Entresto [phone] BID 30 day supply
Jardiance 10 mg a day 286.76 once a day
Farxiga 10 mg 281.07-30 days once day
Per Madonna, patient has yet to meet his deductible and that could be why costs are high (they may lower once deductible has been met.
--- NOTE | 2024-05-12 10:54 | W.PN.HOSP.TC ---
Today's Communication/Plan
-
dc
Assessment / Plan
Assessment / Plan
78yo M with PMHx of HTN, HLD, DM, CAD s/p CABG, recent cath in Feb 2024 with PTCA 2/2 ISR lesion in ostial SVG stent, HFrEF, bioprosthetic AV came with chest congestion and LE swelling for 24h. Did not report recent infection, medication or diet
non-compliance, rapidly improved on IV Lasix, transitioned to oral. Echo as per cardiology essentially unchanged, but with increased gradients over AV. Will be offered outpatient BiV ICD. ALso Valsartan and Toprol increased. Planned for outpatient
start of Entresto and SGLT2. Cardiology signed off. Medically stable for d/c home as symptoms improved. Minimal leukocytosis with no respiratory or urinary symptoms
A/P:
#Acute on chronic HFrEF exacerbation
#CAD s/p CABG
#1st degree AVB
#Iscemic cardiomyopathy
#Bioprostetic AV
#Mild troponin elevation 2/2 CHF
Previous Echo with increased gradiaents - repeat Echo
LAsix, follow Cr, electrolytes, weight and I&O
Cardio consult
cont ASA, Plavix
#Gilbert
no f/u advised
#DM type 2 with neuropahty
cont insulin, Accuchecks and DM diet
#HLD
#Essential HTN
cont home meds
DVT ppx hep
DNR/DNI
I have spent at least 36min reviewing chart, test results, communication with consultants and providing direct patient care
Anticipated Discharge: Today
Subjective/Interval History
-
Date of Service: May 12, 2024
Objective Data
-
Labs:
Laboratory Results
05/12/24
07:03
WBC 10.9 H
Hgb 13.1
Hct 37.6 L
Plt Count 286
Sodium 136
Potassium 4.2
Chloride 98
Carbon Dioxide 24
BUN 25 H
Creatinine 1.2
Glucose 263 H
Calcium 10.2
Total Bilirubin 1.5 H
AST 20
ALT 16
Alkaline Phosphatase 83
Vital Signs:
Vital Signs
Temp Pulse Resp BP Pulse Ox
97.7 F 56 18 128/54 97
05/12/24 07:05 05/12/24 07:05 05/12/24 07:05 05/12/24 07:05 05/12/24 07:05
I&O
05/11/24 05/12/24 05/13/24
06:59 06:59 06:59
Intake Total 480 / 480 900 / 900
Output Total 5000 / 5000 1450 / 1450
Balance -4520 / -4520 -550 / -550
--- NOTE | 2024-05-12 11:01 | W.DCSUMMARY ---
Discharge Summary
Discharge Data
Date of Admission: 05/10/24
Date of Discharge: 05/12/24
-
Pending Results: No
Hospital Course
78yo M with PMHx of HTN, HLD, DM, CAD s/p CABG, recent cath in Feb 2024 with PTCA 2/2 ISR lesion in ostial SVG stent, HFrEF, bioprosthetic AV came with chest congestion and LE swelling for 24h. Did not report recent infection, medication or diet
non-compliance, rapidly improved on IV Lasix, transitioned to oral. Echo as per cardiology essentially unchanged, but with increased gradients over AV. Will be offered outpatient BiV ICD. ALso Valsartan and Toprol increased. Planned for outpatient
start of Entresto and SGLT2. Cardiology signed off. Medically stable for d/c home as symptoms improved. Minimal leukocytosis with no respiratory or urinary symptoms
I have spent at least 36min reviewing chart, test results, communication with consultants and providing direct patient care
Patient was managed for:
#Acute on chronic HFrEF exacerbation
#CAD s/p CABG
#1st degree AVB
#Iscemic cardiomyopathy
#Bioprostetic AV
#Mild troponin elevation 2/2 CHF
#Gilbert
#DM type 2 with neuropathy
#HLD
#Essential HTN
Discharge Plan
-
Patient Disposition: Home (Routine Discharge)
Discharge Diagnosis/Procedures: CHF
Diet: 2 Gram Sodium
Activity: As tolerated
Driving Restrictions: As prior to admission
Instructions: *CBC Heart Failure Instructions
Referrals:
Lashawn Garza CRNP [Specified Professional Personl] - 06/01/24 8:40 am
Santos Weinberg MD [Family Provider] -
Prescriptions:
New
valsartan 80 mg Tablet
160 mg PO BID Qty: 60 0RF
metoprolol succinate 25 mg Tablet Extended Release 24 Hr
75 mg PO BID Qty: 180 0RF
Continued
multivitamin 1 EACH tablet
1 ea PO DAILY
atorvastatin 80 mg tablet
80 mg PO QPM
aspirin 81 mg Tablet,Delayed Release (Dr/Ec)
81 mg PO DAILY
nitroglycerin 0.4 mg Tablet, Sublingual
0.4 mg sublingual [id number] PRN (Reason: chest pain) Qty: 30 0RF
clopidogrel [Plavix] 75 mg Tablet
75 mg PO DAILY
insulin lispro [Admelog SoloStar U-100 Insulin] 100 unit/mL insulin pen
15 unit SC AC
spironolactone 25 mg Tablet
25 mg PO DAILY 30 Days Qty: 30 0RF
PreserVision AREDS 2,148 mcg-113 mg-45 mg-17.4mg Tablet
1 tab PO BID
oxycodone 10 MG tablet
10 mg PO Q6HPRN PRN (Reason: moderate to severe pain) Qty: 0 0RF
Patient Comments:
last filled 04/21/24, 120 tabs for 30 days from [id number]
isosorbide mononitrate 30 mg Tablet Extended Release 24 Hr
30 mg PO DAILY
metformin 1,000 mg Tablet
1,000 mg PO BID
insulin glargine [Basaglar KwikPen U-100 Insulin] 100 unit/mL (3 mL) Insulin Pen
20 - 30 unit SC HS
furosemide 80 mg tablet
80 mg PO DAILY
Discontinued
valsartan 80 mg Tablet
80 mg PO BID
metoprolol succinate [Toprol XL] 50 mg tablet extended release 24 hr
50 mg PO BID Qty: 60 0RF
Discharge Orders:
Discharge Patient (As Directed); Ordered 05/12/24
Ordered By: Jonathon White
Discharge Date and Time
Print Language: BAHAMIAN
[2024-05-12 11:05] VITALS: BP 135/58
--- NOTE | 2024-05-12 11:25 | CM ---
Patient cleared for discharge. Met with patient and his , Ray who are agreeable and do not want any VN services. IMM signed. It is on chart and was reviewed with patient and his .
Plan: Case management will continue to follow and assist with discharge planning. Home.
[2024-05-12 11:43] LABS: Glucose - Point of Care 225 mg/dl (70-99)
--- NOTE | 2024-05-13 09:07 | W.HF.CON ---
Heart Failure
- LV Function
Left ventricular function study result: LV Ejection fraction </= 35%
Ejection Fraction Percentage: 30-35
- ARNI
Patient already on ARNI: No
Heart Failure ARNI Contraindication: Patient Refusal
- ACEI/ARB
Patient already on ACEI/ARB: Yes
- Beta Sheela
Patient already on Evidence Based Beta Sheela: Yes
- Mineralocorticord Receptor Antagonist
Patient already on MRA: Yes
- SGLT-2 Inhibitor
Patient already on SGLT-2 Inhibitor: No
Heart Failure SGLT-2 Inhibitor Contraindication: Patient Refusal
- NYHA CHF Classification
NYHA CHF Classification Level: Class III - Symptoms w/ min exertion, interferes w/ nml daily activity
- ACC/AHA Stage
ACC/AHA Stage: Stage C: Symptomatic Heart Failure
== END 2024-05-12 12:24 | disposition home or self-care (01) | DRG 291 ==
LOC: 3 WEST ACU 14:29
PROVIDERS: Clinical Nurse Specialist Family Health; ADMITTING PHYSICIAN Internal Medicine; ATTENDING PHYSICIAN Internal Medicine; CONSULT PHYSICIAN Internal Medicine; EMERGENCY PHYSICIAN Student in an Organized Health Care Education/Training Program; FAMILY PHYSICIAN Family Medicine
DX: I13.0 Hypertensive heart and chronic kidney disease with heart failure and stage 1 through stage 4 chronic kidney disease, or unspecified chronic kidney disease (principal); I50.23 Acute on chronic systolic (congestive) heart failure; F11.20 Opioid dependence, uncomplicated; I25.5 Ischemic cardiomyopathy; I5A Non-ischemic myocardial injury (non-traumatic); E11.51 Type 2 diabetes mellitus with diabetic peripheral angiopathy without gangrene; Z66 Do not resuscitate; E11.42 Type 2 diabetes mellitus with diabetic polyneuropathy; E11.22 Type 2 diabetes mellitus with diabetic chronic kidney disease; N18.32 Chronic kidney disease, stage 3b; K21.9 Gastro-esophageal reflux disease without esophagitis; I25.10 Atherosclerotic heart disease of native coronary artery without angina pectoris; I25.2 Old myocardial infarction; I44.7 Left bundle-branch block, unspecified; G89.4 Chronic pain syndrome; M54.31 Sciatica, right side; D63.1 Anemia in chronic kidney disease; J44.9 Chronic obstructive pulmonary disease, unspecified; E80.4 Gilbert syndrome; E78.00 Pure hypercholesterolemia, unspecified; I44.0 Atrioventricular block, first degree; Z95.3 Presence of xenogenic heart valve; Z88.8 Allergy status to other drugs, medicaments and biological substances; Z87.891 Personal history of nicotine dependence; Z79.899 Other long term (current) drug therapy; Z79.82 Long term (current) use of aspirin; Z79.4 Long term (current) use of insulin; Z79.02 Long term (current) use of antithrombotics/antiplatelets; Z79.84 Long term (current) use of oral hypoglycemic drugs; Z95.5 Presence of coronary angioplasty implant and graft; Z95.1 Presence of aortocoronary bypass graft
CPT/HCPCS: 71046; 80053; 80061; 82248; 82962; 83615; 83735; 83880; 84484; 85025; 85045; 93005; 93306; 96374; 97162; 97166; 99285; G0422; G0423; Q9950

== ENCOUNTER 2024-05-16 06:09 | Inpatient (IN) | payer MEDICARE, OTHER, SELFPAY ==
[2024-05-16] VITALS (29 sets, daily range): BP systolic 78–136; BP diastolic 40–66; BMI 29.4; BMI 29.2
[2024-05-16 04:01] LABS: % Basophils 0.5 % (0-2); % Eosinophils 0.7 % (0-6); % Immature Granulocytes 0.5 % (0-0.5); % Lymphocytes 17.5 % (20.5-51.1); % Monocytes 8.9 % (1.7-9.3); % Neutrophils 71.9 % (42.2-75.2); Absolute Basophils 0.1 10^3/uL (0-0.2); Absolute Eosinophils 0.1 10^3/uL (0-0.7); Absolute Immature Granulocytes 0.1 10^3/uL (0-0.05); Absolute Lymphocytes 2.5 10^3/uL (1.2-3.4); Absolute Monocytes 1.3 10^3/uL (0.1-0.6); Absolute Neutrophils 10.4 10^3/uL (1.4-6.5); Hematocrit 34.5 % (39.0-52.0); Hemoglobin 11.4 g/dL (13.0-18.0); Mean Corpuscular Hgb 30.8 pg (27.0-31.0); Mean Corpuscular Volume 93.2 fL (80.0-94.0); Mean Platelet Volume 10.9 fL (7.4-10.4); Nucleated Red Blood Cells % 0 % (-); Platelet Count 280 10^3/uL (130-400); Red Cell Dist. Width 14.3 % (11.5-14.5); White Blood Cell Count 14.4 10^3/uL (4.8-10.8)
[2024-05-16] MEDS: ZOFRAN 4 MG IV (04:14)
[2024-05-16] MEDS: MORPHINE SULFATE 4 MG IV ×7 (04:15→13:45)
[2024-05-16 04:34] LABS: Troponin I 0.489 ng/ml
[2024-05-16 04:35] LABS: ALT (SGPT) 16 U/L (0-50); AST (SGOT) 29 U/L (17-59); Albumin 4.4 g/dl (3.5-5.0); Alkaline Phosphatase 58 U/L (38-126); Blood Urea Nitrogen 67 mg/dl (9-20); Calcium 9.7 mg/dl (8.4-10.2); Carbon Dioxide 14 mmol/L (22-30); Chloride 98 mmol/L (98-107); Estimated Creatinine Clearance 10 ml/min; Glucose 83 mg/dl (70-99); Sodium 139 mmol/L (135-145); Total Bilirubin 1.1 mg/dl (0.2-1.3); Total Protein 6.7 g/dl (6.3-8.2); eGFR 8.15
[2024-05-16] MEDS: NITROGLYCERIN PREMIX 250 IV (04:38)
--- NOTE | 2024-05-16 04:59 | ED.GENMED ---
History of Present Illness
General
Chief Complaint: Chest Pain
Source: patient
Time Seen by Provider: 05/16/24 03:54
History of Present Illness
History of Present Illness:
78-year-old male who presents with severe chest pain. He states it started probably around midnight. Patient states he has a history of coronary disease and feels similar to prior. Patient was recently here and admitted for heart failure and was
being diuresed. Patient states that the pain came on tonight and has been persistent ever since. He does report feeling nauseous. Does report mild shortness of breath. Patient also has a known history of coronary disease as well as aortic
stenosis and CHF. Patient is a patient of Dr. Frias. Patient's states that she was a bit concerned that he has not been putting out as much urine as she suspected he should in light of the diuresis.
Past History
Past History
ED Past Medical History: CAD, GERD, HTN, Hypercholesterolemia, NIDDM, ID, Psychiatric (Depression) and Other (chronic pain, diabetic peripheral neuropathy, peripheral arterial disease)
ED Past Surgical History: Cardiac (CABG 2010, aortic valve replacement 2015, cardiac stenting 2018, stent 2022), Tonsilectomy and Other (Xiphoid removal, right lower extremity arteriogram with bypass 2019)
Social History
Tobacco: Former smoker
Alcohol: None
Personal:
Living: with family
Family History
Family History: Other (Reviewed and noncontributory)
Phy Exam
Physical Exam
Physical Exam:
CONSTITUTIONAL Patient alert and oriented to person, place and time. ill-appearing. Moderate pain distress. Vital signs reviewed.
HEAD atraumatic, normocephalic.
EYES eyelids normal to inspection, Extraocular muscles intact, Conjunctiva normal, Sclera normal.
NECK normal range of motion, Trachea midline, no jugular venous distention.
RESPIRATORY CHEST No respiratory distress noted, Chest expansion equal, Bilateral breath sounds clear.
CARDIOVASCULAR regular, systolic ejection murmur noted
BACK normal inspection, no obvious deformities
UPPER EXTREMITY range of motion normal, Motor strength normal, no cyanosis, no edema.
LOWER EXTREMITY range of motion normal, Motor strength normal, no cyanosis, no edema.
NEURO Speech normal, No focal motor deficits, [place] coma scale 15, Memory normal, Cranial Nerves intact to screening exam.
SKIN pale
Scores
Heart Score for Chest Pain Patients
STEMI patient?: No
History: Highly Suspicious
ECG: Significant ST-Depression
Age: >/= 65 years
Risk Factors: >/= 3 Risk Factors or History of CAD
Troponin: >/= 3 x Normal Limit
Heart Score for Chest Pain Patients: 10
Heart Score Risk: 72.7 % MACE over next 6 weeks
Course
Orders/Labs/Results
Orders:
Orders
05/16/24
Electrocardiogram (*1) Stat
Reason for Study: Chest Pain
Comment: DONE
05/16/24 03:02
Electrocardiogram (*1) Urgent
Reason for Study: Chest Pain
EKG- Treatment ONCE
05/16/24 03:52
CMP [Comprehensive Metabolic Panel] Urgent
Complete Blood Count/With Diff Urgent
Troponin I Urgent
05/16/24 03:59
Morphine Sulfate 4 mg .ROUTE .STK-MED ONE
Ondansetron Injectable [Zofran] 4 mg .ROUTE .STK-MED ONE
05/16/24 04:01
Morphine Sulfate 4 mg IV NOW STA
Ondansetron Injectable [Zofran] 4 mg IV NOW STA
CR Chest Portable - 1 View Urgent
Comment:
Reason For Exam: cp
Reason Study Needs to be Portable: Patient Unstable
05/16/24 04:28
Nitroglycerin 100 mg/250 ml [Nitroglycerin Premix] 100 mg in 250 ml IV NOW
Initial dose in mcg/min, then titrate:: 5
Titrate to keep:: SBP < 160 mmHg
Titrate by mcg/min:: 5 mcg/min, may increase by 10 mcg/min if dose > 20 mcg/min
Frequency of titrations (minutes):: every 3-5 minutes
Maximum dose in mcg/min:: 200
Begin to taper infusion when:: Remained at goal for 2hrs
Taper by mcg/min:: 5 mcg/min
Frequency of taper (minutes) if patient maintains goal:: 30
Taper to off?: Yes
If infusion off & no longer maintaining goal:: Contact Provider
05/16/24 04:42
Electrocardiogram (*1) Urgent
Reason for Study: Chest Pain
EKG- Treatment ONCE
05/16/24 04:43
Bladder Scan- Treatment ONCE
05/16/24 04:50
Morphine Sulfate 4 mg IV NOW STA
05/16/24 05:22
Aspirin 325 mg PO NOW STA
05/16/24 05:29
CT Chest/abd/pel Wo Iv Cont Stat
Comment:
Reason For Exam: severe chest pain, ARF
05/16/24 05:35
Lactic Acid Urgent
05/16/24 05:37
Admit/Transfer Patient As Directed
Co-Sign Provider:
Level of Care: Inpatient admission
Assign to:: ICU
Physician / Group: Justo
Diagnosis: NSTEMI, LANG
Reason for Hospitalization: NSTEMI, LANG
Expected length of stay greater than two midnights?: Yes
ELOS- Estimated Length of Stay in days: 5
I certify the patient meets the requirements for IP care: Yes
PRN Pain Medication Management As Directed
May give lesser potent ordered pain med per pt: Yes
preference::
Protocol:: Medication orders for pain may be administered in a
manner that supports deferring to patient preference
when the pt is:
- Requesting an ordered lesser potent pain medication.
Least to most potent pain medications are defined
as: acetaminophen < NSAID < tramadol < opioids
(morphine, oxycodone, hydromorphone).
- Requesting a lesser dose of the same medication IF
ORDERED.
- Requesting a less intrusive route of administration
if both routes are prescribed by the provider (PO <
IV).
05/16/24 05:39
Code Status As Directed
Resuscitation Status: Do not resuscitate
Reached after discussion with pt or family/Healthcare POA: Yes
05/16/24 05:41
Echo 2D MMode Color/Doppler Stat
Reason for Study: severe CP
DNR Bracelet Application ONCE
05/16/24 Breakfast
NPO
Allow oral meds: Yes
Allow clear liquids: Sips of Clears
05/16/24 06:28
Troponin I Q6H
Acetaminophen [Tylenol] 650 mg PO Q4HPRN PRN
Dextrose 50%-Water [Dextrose 50% Syringe] 12.5 grams IV [id number] PRN
Glucagon [GlucaGen] 1 mg IM PRN PRN
Morphine Sulfate 2 mg IV Q4HPRN PRN
Nitroglycerin 100 mg/250 ml [Nitroglycerin Premix] 100 mg in 250 ml IV PER PROTOCOL
Currently infusing. Continue current dose and titrate:: Yes
Titrate to keep:: Chest Pain Free
Titrate by mcg/min:: 5 mcg/min, may increase by 10 mcg/min if dose > 20 mcg/min
Frequency of titrations (minutes):: every 3-5 minutes
Maximum dose in mcg/min:: 200
Begin to taper infusion when:: Remained at goal for 2hrs
Taper by mcg/min:: 5 mcg/min
Frequency of taper (minutes) if patient maintains goal:: 30
Taper to off?: Yes
If infusion off & no longer maintaining goal:: Contact Provider
Sterile Water For Inj [Sterile Water For Injection 1000 ml] 1,000 ml Sodium Bicarbonate 150 meq IV 100 mls/hr
05/16/24 06:28
CARDIOLOGY CONSULT Routine
Consulting Provider: Sky Roland
Was physician already notified: Yes
Reason for consult: NSTEMI, LANG
Activity As Directed
Activity Level: Bedrest
Bedside Glucose Monitoring As Directed
Frequency: AC&HS
Additional Instructions:: Change to q6h if pt on TPN, tube feeding or not eating
EKG with chest pain [ECG as needed] As Directed
ECG as needed for:: Chest Pain
Velazquez Catheter [Catheter- Indwelling] As Directed
Reason for insertion: Acute Kidney Injury
Discontinue Date/Time: 05/19/24 0600
I/O [Intake/ Output] As Directed
Frequency: Per unit guidelines
Intake/ Output As Directed
Frequency: Per unit guidelines
Comment: strict intake and output monitoring
Pneumatic Compression Sleeves As Directed
Type: Knee high
Vital Signs As Directed
Frequency: Per unit guidelines
Weight As Directed
Frequency: Daily
Weight As Directed
Frequency: Daily
Oxygen Therapy [O2 Therapy] [RESP] Routine
Titrate/Wean O2 to maintain O2 sat greater than (%): 94
DX Deep Vein Thrombosis Video Routine
05/16/24 07:30
Insulin Aspart Corrective Mod [Novolog Flexpen-Moderate Resistance] See Protocol SC AC
05/16/24 08:00
Aspirin Low Dose EC [Aspir Low (Enteric Coated)] 81 mg PO DAILY
Pantoprazole [Protonix IV] 40 mg IV DAILY
05/16/24 12:00
Metoprolol [Lopressor] 5 mg IV Q6
05/16/24 12:28
Troponin I Q6H
05/16/24 18:00
Atorvastatin [Lipitor] 80 mg PO QPM
05/16/24 18:28
Troponin I Q6H
05/16/24 22:00
insulin glargine [Basaglar KwikPen U-100 Insulin] 14 unit SC HS
05/17/24 06:00
EKG [Electrocardiogram (*1)] IN AM
Reason for Study: Chest Pain
Basic Metabolic Panel IN AM
Cardiovascular Evaluation IN AM
Complete Blood Count/No Diff IN AM
Glycohemoglobin (HgbA1c) IN AM
Abnormal Lab Results
05/16/24 05/16/24
03:52 05:35
WBC 14.4 H 10^3/uL
(4.8-10.8)
RBC 3.70 L 10^6/uL
(4.70-6.10)
Hgb 11.4 L g/dL
(13.0-18.0)
Hct 34.5 L %
(39.0-52.0)
MPV 10.9 H fL
(7.4-10.4)
Abs Immat Gran (auto) 0.1 H 10^3/uL
(0-0.05)
Absolute Neuts (auto) 10.4 H 10^3/uL
(1.4-6.5)
Absolute Monos (auto) 1.3 H 10^3/uL
(0.1-0.6)
Lymphocytes % 17.5 L %
(20.5-51.1)
Carbon Dioxide 14 L* mmol/L
(22-30)
BUN 67 H mg/dl
(9-20)
Creatinine 6.5 H* mg/dL
(0.7-1.3)
Lactic Acid 11.4 H* mmol/L
(0.7-2.0)
Troponin I 0.489 H* ng/ml
05/16/24 03:52
05/16/24 03:52
Vital Signs
Initial and Last Documented VS:
Initial Vital Signs
Temp Pulse Resp BP Pulse Ox
97.8 F 88 22 105/46 100
05/16/24 03:09 05/16/24 03:09 05/16/24 03:09 05/16/24 03:09 05/16/24 03:09
Last Documented Vital Signs
Temp Pulse Resp BP Pulse Ox
97.8 F 93 20 104/55 96
05/16/24 03:09 05/16/24 06:15 05/16/24 06:15 05/16/24 06:15 05/16/24 06:15
MDM/Problems Addressed
Differential Diagnosis Includes:
Acute coronary syndrome, aortic dissection, pulmonary embolism, pneumothorax, pneumonia, myocardial infarction
MDM/Problems Addressed:
Acute coronary syndrome, intractable chest pain, acute renal failure, metabolic acidosis
*Pulse Oximetry
Patient hypoxic: no
*EKG
Interpreted by ED Provider?: Yes
Interpretation: abnormal
Rate: normal
Rhythm: sinus
[place]: left axis deviation
QRS Pattern: left bundle branch block
Ischemia: ST depression (Anterior-lateral leads)
*Super[facility] [place] Interpretation
Rate: tachycardiac
Interpretation: abnormal
Rhythm: sinus
*Critical Care Note
Total Time (30-74mins, 75-104mins- exclusive of procedures): 80 minutes
Data Reviewed
Review of Other/Old Records Reveals: Operative Reports (Cardiac catheterization report from February 2024 reviewed. Complicated anatomy) and Discharge Summary (Discharge summary from 3 days ago reviewed. Patient was diuresed)
Source: patient and spouse
Prescriptions/Medications Considered But Not Given:
Considered IV heparin. However in light of pain rating to his back there is some concern for aortic dissection
Patient Management
Discussion with other providers: Hospitalist and Senior Engineering Manager (Case discussed with Dr. Roland)
Escalation/DeEscalation of care consider admission/obs:
78-year-old male who presents with severe unrelenting chest pain. Despite morphine, nitroglycerin pain persist. There is at least some concern for aortic dissection given pain rating to the back. His chest x-ray is unchanged from previous. Blood
pressure is equal in both arms. Case was discussed extensively with hospitalist and Dr. Roland. Previous cardiac catheterization was somewhat complicated as per the report. Newly found was acute renal failure despite recent labs of just a few days
ago. Question whether this is from diuresis. Negligible urine in his bladder so no evidence of outlet obstruction. Acute renal failure does limit IV contrast for CT imaging and does add complication to whether he should go to cardiac
catheterization lab. At this point cardiology will come bedside and echocardiogram was called for stat. Cardiology will decide whether or not to pursue cardiac catheterization
ED Attending Note
-
Portions of this chart may have been created with voice recognition software.� Occasional wrong word or��sound alike� substitutions may have occurred due to the inherent limitations of voice recognition software.
Discharge Plan
Departure
Patient Disposition: Admit
Date of Disposition: 05/16/24
Time of Disposition: 04:59
Admit to: ICU
Presentation/result/management discussed w/ accepting MD/DO: Hospitalist
Discharge Problem:
Acute renal failure, Acute coronary syndrome
Interventions
Interventions:
*Risk Screen - Suicide Last Done: 05/16/24 03:09
*General Assessment Last Done: 05/16/24 03:21
*Neglect/Abuse Screening Last Done: 05/16/24 03:09
*ED- Fall Risk Assessment Last Done: 05/16/24 03:21
*ED COVID-19 Vaccine History Last Done: 05/16/24 03:21
*Nursing Disposition Last Done: 05/16/24 06:25
ED- Cardiac Assessment Last Done: 05/16/24 03:17
Discharge Date and Time
Discharge Date/Time: 05/16/24 06:25
[2024-05-16] MEDS: ASPIRIN 325 MG PO (05:27)
--- NOTE | 2024-05-16 05:47 | HPS.HSE ---
Family Physician
-
Family Physician: Santos Weinberg
Chief Complaint
-
Chest pain
History of Present Illness
Patient is a 78y M with PMH significant for ASCVD, CHF and DM-II who presents to ED complaining of chest pain. Patient states that her developed sudden onset of substernal chest pain this evening around 10PM. He reports pain in the center of
the chest with radiation straight through to the upper / mid back. He took multiple doses of NTG at home without relief of his symptoms. He woke his around 2:30 AM and they presented to the ED for evaluation. Patient denies diaphoresis or
SOB. He has had N/V here in the ED. Patient states that his current pain is similar to prior cardiac events - though this episode has lasted longer than prior episodes.
Patient was evaluated in the ED and has received additional doses of NTG, morphine and now IV NTG infusion.
Despite these measures he continues to complain of significant discomfort in the chest and back.
Patient was recently hospitalized 05/10 - 05/12 for CHF. He received IV Lasix x 2 days and was then discharged to home on his usual Lasix dose.
His notes that he seems to have urinated less than usual for the past day or two.
No other recent complaints including cough, fevers / chills, etc.
He was feeling fairly well prior to onset of this pain this evening.
Medical History
Past Medical History
Past Medical History: Reports Other
Additional Past Medical History:
ASCVD (CAD, PAD, Carotid Disease)
Aortic Stenosis
Chronic HFrEF
DM-II with Neuropathy
Hypertension
Chronic Pain Syndrome
Past Surgical History: Reports Other
Additional Past Surgical History:
CABG
PTCA with Stent (multiple)
Bio AVR
RLE Angio / Bypass
Right CEA
T&A
Social History
Tobacco: Former Smoker (Quit smoking in 1979.)
Alcohol: None
Drug: None
Family History
Family History: Not pertinent
Allergies / Home Medications
Allergies reflects when Allergies were last updated in [employer].
Home Medications with original date entered in [employer]
Allergy/Medication List:
Allergies
Allergy/AdvReac Type Severity Reaction Status Date / Time
lisinopril Allergy cough Verified 05/16/24 03:11
Home Medications
multivitamin 1 ea PO DAILY Supplement 11/19/17
aspirin 81 mg tablet,delayed release 81 mg PO DAILY Blood clot prevention/tx 01/20/22
atorvastatin 80 mg tablet 80 mg PO QPM High cholesterol 01/20/22
nitroglycerin 0.4 mg sublingual tablet 0.4 mg sublingual [id number] PRN chest pain #30 tabs 10/16/22
clopidogrel 75 mg tablet (Plavix) 75 mg PO DAILY Blood Clot Prevention/Tx 04/04/23
insulin lispro 100 unit/mL subcutaneous pen (Admelog SoloStar U-100 Insulin lispro) 15 unit SC AC Diabetes 12/31/23
spironolactone 25 mg tablet 25 mg PO DAILY Heart disease/condition 30 days #30 tabs 01/03/24
vitamins A,C,S-ppud-nerseb 2,148 mcg-113 mg-45 mg-17.4 mg tablet (PreserVision AREDS) 1 tab PO BID Eye Condition 03/16/24
oxycodone 10 mg tablet 10 mg PO Q6HPRN PRN moderate to severe pain #0 tabs 03/18/24
insulin glargine 100 unit/mL (3 mL) subcutaneous pen (Basaglar KwikPen U-100 Insulin) 20 - 30 unit SC HS Diabetes 05/10/24
isosorbide mononitrate 30 mg tablet,extended release 24 hr 30 mg PO DAILY Heart Disease/Condition 05/10/24
metformin 1,000 mg tablet 1,000 mg PO BID Diabetes 05/10/24
furosemide 80 mg tablet 80 mg PO DAILY Fluid Retention/Swelling 05/11/24
metoprolol succinate 25 mg tablet,extended release 24 hr 75 mg (3 x 25 mg) PO BID #180 tabs 05/12/24
valsartan 80 mg tablet 160 mg (2 x 80 mg) PO BID #60 tabs 05/12/24
Review of Systems
-
History Source: Patient
A 12 point ROS was completed and negative except as noted: Yes
Constitutional: Reports Fatigue; Denies Fever or Chills
Respiratory: Denies Cough or Trouble Breathing
Cardiac: Reports Chest Pain; Denies Diaphoresis, Palpitations or Syncope
Abdomen/GI: Reports Nausea and Vomiting; Denies Abdominal Pain
: Reports Other (Decreased urination.); Denies Dysuria or Flank Pain
Musculoskeletal: Reports Other (Back Pain); Denies Joint Pain or Edema
Neurological: Denies Dizzy
Psych: Denies Depression or Anxiety
Physical Exam
Vital Signs
Vital Signs
Temp Pulse Resp BP Pulse Ox
97.8 F 88 23 113/56 96
05/16/24 03:09 05/16/24 05:15 05/16/24 05:15 05/16/24 05:15 05/16/24 05:02
Physical Exam
General: Other (Ill-appearing, pale 78y M in moderate distress due to pain.)
HEENT: Moist mucous membranes and PERRLA
Respiratory: Other (Decreased BS at bases - shallow respirations.)
Cardiac: S1/S2, Regular Rhythm and Murmur (III/ ANTHONY with crisp S2.)
GI: Soft, Non Tender, Non Distended and Normal Bowel Sounds
Musculoskeletal: No Clubbing, No Cyanosis and No Edema
Neuro: AO x 3
Laboratory Results
-
05/16/24 03:52
05/16/24 03:52
Laboratory Results
Total Bilirubin 1.1 mg/dl (0.2-1.3) 05/16/24 03:52
AST 29 U/L (17-59) 05/16/24 03:52
ALT 16 U/L (0-50) 05/16/24 03:52
Alkaline Phosphatase 58 U/L (38-126) 05/16/24 03:52
Troponin I 0.489 ng/ml H* 05/16/24 03:52
Impression/Plan
-
A/P: Patient is a 78y M with PMH significant for ASCVD, CHF and DM-II who presents to ED complaining of severe chest pain that started this evening.
ACS / NSTEMI
ASCVD
- Admit to ICU for further evaluation and treatment.
- Patient presents with severe chest pain, EKG with LBBB and ST depressions in inferior leads and V4-6.
- Initial troponin elevated at 0.489.
- Pain not relieved in the ED despite NTG SL, morphine, NTG infusion, etc.
- Case reviewed with ED staff and Cardiology.
- CT done pending formal report to evaluate for possible aortic pathology.
- Bedside Echo requested - follow-up findings / Cardiology evaluation.
- Continue efforts at pain control.
- Continue ASA, statin, etc.
- IV Lopressor with holding parameters.
- If pain unrelenting and no evidence of aortic dissection, etc - would likely require ischemic evaluation / cath.
- Reviewed associated risks of renal injury with patient / family (see below).
LANG on CKD II
Anion Gap Metabolic Acidosis
- SCr = 6.5 compared to recent baseline of 1.2 only two days ago.
- Decreased urine output per patient / .
- Recently admitted for CHF and received IV diuresis for 2 days - discharged on usual dose with no changes.
- Weight is not significantly decreased from recent admission.
- Hold ARB, metformin, etc.
- IVFs with bicarb for now.
- Velazquez, strict I/Os, etc.
- Follow for improvement in renal function.
- See above re: evaluation of aorta, risks of contrast / cath, etc.
Chronic HFrEF
Aortic Stenosis s/p BioAVR
- Patient does not appear grossly volume overloaded.
- Hold diuretics acutely.
- Follow I/Os, daily weights, etc.
- Echo to be done at bedside now.
Benign Hypertension
- BP borderline low at present / on NTG infusion.
- Hold PO medications acutely.
- IV Lopressor for now as noted above.
DM-II
- Stable. No significantly hyperglycemic at present.
- Continue basal insulin at decreased dose while NPO.
- Follow glucose and cover with SSI as needed.
- A1C was 8.1% in February 2024.
DVT Prophylaxis: SCDs +/- Heparin infusion (after CT / Echo)
Code Status: DNR
[2024-05-16 06:20] LABS: Lactic Acid 11.4 mmol/L (0.7-2.0)
--- NOTE | 2024-05-16 07:15 | PTCARENOTE ---
Received patient AAOx3, following commands, reporting 7/10 chest pain with no relief on 20 mcg/min nitroglycerin drip. Denying nausea/dizziness/SOB. Cardiology notified and came to bedside. Nitroglycerin titrated off, BP unstable 80s/50s. Normal
sinus/sinus tach 90s-100s. Echo at bedside. Palpable radial and pedal pulses b/l. Lung sounds clear, 100% on 2 liters nasal cannula. Abdomen soft, round, nontender, positive bowel sounds. Skin intact. Left forearm #22 patent, WNL, IV team called for
more access. at bedside updated, report given to oncoming RN.
--- NOTE | 2024-05-16 07:39 | PTCARENOTE ---
Patient is actively having chest pain, echo was being done at bedside.. Dr. Roland was speaking with patient and his . Patient wishes to pursue comfort care.
--- NOTE | 2024-05-16 08:31 | W.PN.UPDATE ---
Update Note
Progress Note Update
This morning patient was made comfort care. Hospitalist, Dr. Wylie, placing orders for comfort with downgrade to [facility]. merchandise team manager at bedside this morning. No need for ICU services at this time. Please call back if there are any additional
questions or concerns.
--- NOTE | 2024-05-16 08:32 | CHAP ---
Emotional and spiritual support provided, prayer blanket given, stories and prayers shared. Will follow.
--- NOTE | 2024-05-16 08:33 | W.PN.HOSP.TC ---
Today's Communication/Plan
-
ICU care. Hospice care discussions-see plan.
Assessment / Plan
Assessment / Plan
Physical exam:
General: In distress due to pain.
HEENT: Normocephalic, Atraumatic and Moist Mucous Membranes
Respiratory: Coarse rhonchi bilateral; Negative Wheezes, Rales. Use of accessory muscles
Cardiac: Regular Rhythm and S1/S2, systolic murmur. JVD present
GI: Soft, Nontender and Nondistended
Musculoskeletal: No Clubbing, No Cyanosis. Bilateral lower extremities. Extremities cool to touch
Neuro: Awake, Alert and Oriented
Psych: Anxious
A/P:
Goals of care:
Start providing comfort
Cardiology discussed with patient and family and I came and discussed with them at length shortly after.
Will start comfort measures
Hospice care consult
Other active medical problems:
Acute cardiogenic shock:
Acute NSTEMI and LANG due to shock
Unfortunately high risk of morbidity mortality and a hospice candidate due to limitations of medical interventions we could offer
White blood cell count 14, hemoglobin 11, creatinine 6.5, bicarb 14, lactate 11.4, troponin 0.489
ACS / acute NSTEMI
ASCVD
- Admitted to ICU for further evaluation and treatment. Discussions with patient and family and very high risk of any cardiac intervention and lead to worse outcomes regardless. Discussions about hospice as an option and patient and family
deciding in favor of that.
- Patient presents with severe chest pain, EKG with LBBB and ST depressions in inferior leads and V4-6.
- Initial troponin elevated at 0.489.
- Pain not relieved in the ED despite NTG SL, morphine, NTG infusion, etc.
- Case reviewed with ED staff and Cardiology.
- CT done pending formal report to evaluate for possible aortic pathology.
- Bedside Echo requested - follow-up findings / Cardiology evaluation.
- Continue efforts at pain control.
- Continue ASA, statin, etc.
- IV Lopressor with holding parameters.
- If pain unrelenting and no evidence of aortic dissection, etc - would likely require ischemic evaluation / cath.
- Reviewed associated risks of renal injury with patient / family (see below).
LANG on CKD II
Anion Gap Metabolic Acidosis
- SCr = 6.5 compared to recent baseline of 1.2 only two days ago.
- Decreased urine output per patient / .
- Recently admitted for CHF and received IV diuresis for 2 days - discharged on usual dose with no changes.
- Weight is not significantly decreased from recent admission.
- Hold ARB, metformin, etc.
- IVFs with bicarb for now.
- Velazquez, strict I/Os, etc.
- Follow for improvement in renal function.
- See above re: evaluation of aorta, risks of contrast / cath, etc.
Acute on chronic HFrEF
Aortic Stenosis s/p BioAVR
- Patient does not appear grossly volume overloaded.
- Hold diuretics acutely.
- Follow I/Os, daily weights, etc.
- Echo to be done at bedside now.
Benign Hypertension
- BP borderline low at present / on NTG infusion.
- Hold PO medications acutely.
- IV Lopressor for now as noted above.
DM-II
- Stable. No significantly hyperglycemic at present.
- Continue basal insulin at decreased dose while NPO.
- Follow glucose and cover with SSI as needed.
- A1C was 8.1% in February 2024.
DVT Prophylaxis: SCDs +/- Heparin infusion (after CT / Echo)
Code Status: DNR
Total Critical Care Time__45___ minutes. I was immediately available to the patient and staff. I personally examined, reviewed labs, diagnostic images/reports, interpretations, treatment plans, discussed patient care with other providers and
family or caregivers (if patient is unable to make decisions), entered orders as appropriate and documented the medical record.
Anticipated Discharge: 24 - 48 hours
Subjective/Interval History
-
Date of Service: May 16, 2024
Patient with excruciating chest pain. Looks frail and acutely ill.
Objective Data
-
Labs:
Laboratory Results
05/16/24
03:52
WBC 14.4 H
Hgb 11.4 L
Hct 34.5 L
Plt Count 280
Sodium 139
Potassium 5.0
Chloride 98
Carbon Dioxide 14 L*
BUN 67 H
Creatinine 6.5 H*
Glucose 83
Calcium 9.7
Total Bilirubin 1.1
AST 29
ALT 16
Alkaline Phosphatase 58
Vital Signs:
Vital Signs
Temp Pulse Resp BP Pulse Ox
97.8 F 93 20 104/55 96
05/16/24 03:09 05/16/24 06:15 05/16/24 06:15 05/16/24 06:15 05/16/24 06:15
--- NOTE | 2024-05-16 08:39 | CON.CAR ---
Consultation
Consultation Request
Date/Time Consultation Requested: 05/16/24, 5am
Date/Time Consultation Performed: 05/16/24, 630am
Requesting Provider: Justo
Performing Provider: Luan
Reason for Consultation: chest pain
Medical History
-
Chief Complaint: chest pain
History of Present Illness:
78 yo male with PMH of complex CAD s/p CABG (NAIL SETTER of entire [place] circulation), subsequent stents to SVG, then PTCA to SVG 02/2024, ICM EF 30-35%, chronic systolic HF, 1st degree AVB, LBBB is admitted with chest pain. He woke up around 10 am with
chest pain. Persisted for several hours, then presented to the ED around 3am due to persistent chest pain. He feels weak overall.
Past Medical History
Past Medical History: CHF (chronic systolic HF), HTN, Hypercholesterolemia, IDDM, [place] and Valvular Disease
Past Surgical History: Cardiac (CABG and bio-AVR)
Social History
Tobacco: Non-Smoker
Family History
Family History: Early CAD (none)
Allergies / Home Medications
Allergy/AdvReac Type Severity Reaction Status Date / Time
lisinopril Allergy cough Verified 05/16/24 03:11
�Medication �Instructions �Recorded �Confirmed �Type
multivitamin 1 ea PO DAILY Supplement 11/19/17 05/16/24 History
aspirin 81 mg tablet,delayed 81 mg PO DAILY Blood clot 01/20/22 05/16/24 History
release prevention/tx
atorvastatin 80 mg tablet 80 mg PO QPM High cholesterol 01/20/22 05/16/24 History
nitroglycerin 0.4 mg sublingual 0.4 mg sublingual [id number] PRN 10/16/22 05/16/24 Rx
tablet chest pain #30 tabs
clopidogrel 75 mg tablet (Plavix) 75 mg PO DAILY Blood Clot 04/04/23 05/16/24 History
Prevention/Tx
insulin lispro 100 unit/mL 15 unit SC AC Diabetes 12/31/23 05/16/24 History
subcutaneous pen (Admelog SoloStar
U-100 Insulin lispro)
spironolactone 25 mg tablet 25 mg PO DAILY Heart 01/03/24 05/16/24 Rx
disease/condition 30 days #30 tabs
vitamins A,C,K-[id number] 2,148 1 tab PO BID Eye Condition 03/16/24 05/16/24 History
mcg-113 mg-45 mg-17.4 mg tablet
(PreserVision AREDS)
oxycodone 10 mg tablet 10 mg PO Q6HPRN PRN moderate to 03/18/24 05/16/24 Rx
severe pain #0 tabs
insulin glargine 100 unit/mL (3 20 - 30 unit SC HS Diabetes 05/10/24 05/16/24 History
mL) subcutaneous pen (Basaglar
KwikPen U-100 Insulin)
isosorbide mononitrate 30 mg 30 mg PO DAILY Heart 05/10/24 05/16/24 History
tablet,extended release 24 hr Disease/Condition
metformin 1,000 mg tablet 1,000 mg PO BID Diabetes 05/10/24 05/16/24 History
furosemide 80 mg tablet 80 mg PO DAILY Fluid 05/11/24 05/16/24 History
Retention/Swelling
metoprolol succinate 25 mg 75 mg (3 x 25 mg) PO BID #180 tabs 05/12/24 05/16/24 Rx
tablet,extended release 24 hr
valsartan 80 mg tablet 160 mg (2 x 80 mg) PO BID #60 tabs 05/12/24 05/16/24 Rx
Review of Systems
-
History Source: Patient
All other systems: Negative unless noted
Cardiac: Chest Pain
Physical Exam
Vital Signs
Temp Pulse Resp BP Pulse Ox
97.8 F 93 20 104/55 96
05/16/24 03:09 05/16/24 06:15 05/16/24 06:15 05/16/24 06:15 05/16/24 06:15
Lab Results
05/16/24 03:52
05/16/24 03:52
Troponin I 0.489 ng/ml H* 05/16/24 03:52
Physical Exam
General: Well Developed and Well Nourished
HEENT: Normocephalic and Anicteric
Respiratory: Clear and Accessory Resp Muscle Use
Cardiac: S1/S2 (normal), Regular Rhythm, Murmur (II/ systolic at RUSB), Peripheral Edema (trace LE edema), JVD (present) and Other (extremities cool to touch)
Musculoskeletal: No Clubbing, No Cyanosis and No Edema
Skin: Other (cool)
Neuro: Awake and Alert
Impression / Plan
-
78 yo male with PMH of complex CAD s/p CABG (WEBB to LAD, sequential SVG to OM1 to OM2 to RPDA), (NAIL SETTER of entire [place] circulation), subsequent stents to SVG, then PTCA to SVG 02/2024, ICM EF 30-35%, chronic systolic HF, 1st degree AVB, LBBB is
admitted with chest pain. He woke up around 10 am with chest pain. Persisted for several hours, then presented to the ED around 3am due to persistent chest pain.
Noted to have acute renal failure with Cr 6.5. Also noted TnI 0.489, and lactate over 11. EKG: SR, LBBB, new ST depression anterolateral segments.
Patient admitted to ICU, and stat echo performed, which showed decline in EF to 20-25%, more pronounced hypokinesis of inferior/inferolateral segments, normal aorta.
Patient is critically ill. Presentation is consistent with NSTEMI with acute systolic HF and cardiogenic shock. I discussed the case with interventional cardiology, and decided we would offer high risk cardiac cath.
I discussed the case with patient and at bedside. We discussed cardiac cath. We discussed risk of progressive renal failure and HD.
He decided that he no longer wished to proceed with interventions and wants to proceed with hospice. We will de-escalate care accordingly.
Discussed with cotton seed culler, hospitalist.
Other chronic conditions:
-ischemic cardiomyopathy
-complex CAD
-1st degree AVB
-LBBB
-h/o bio-AVR
-IDDM
Data reviewed:
Echo 05/11/24
Moderately reduced left ventricular systolic function. Left ventricular
ejection fraction is 30-35%.
Bioprosthetic aortic valve. Elevated peak/mean gradients across the aortic
valve at 50/32 mmHg, respectively.
Cath 02/2024
1. Right dominant circulation with chronic total occlusion of the entire [place] circulation status post bypass (patent WEBB to LAD, patent sequential SVG to OM1 to OM2 to RPDA) with prior PCI of the ostial sequential SVG. The original ostial SVG
stent developed in-stent restenosis and was treated with a second stent. Unfortunately, cannulation of the stent was not possible given its position in the aorta and the original stent was wired through the side struts. The second stent deployment
beveled the first stent upwards and occluded it superiorly. SVG graft patency can only be assessed by cannulating the inferior stent.
2. Status post successful IVUS guided PTCA of the 60-70% ostial SVG stent ISR (Medtronic Euphora 4.0 x 28 NC balloon to 14 marline) with reduction in stenosis to 20%, maintaining RACHEL-3 flow.
3. Severely elevated filling pressures (LVEDP = 29 mmHg at 94.3 kg) with evidence of diastolic dysfunction (A wave to 44 mmHg).
4. At least moderate bioprosthetic aortic valve stenosis, mean gradient = 31 mmHg on pullback.
Critical care time: 70 minutes.
Data Reviewed
-
EKG: Tracing Personally Visualized and interpreted
Medical Tests (Nuc Med, Echo etc): Report Reviewed by me (per note )
Labs: Labs Reviewed by me
Old Records: Reviewed
Critical Care Time (in minutes): 70
--- NOTE | 2024-05-16 08:50 | HOSPNOTE ---
Spoke with family and patient and the patient will remain on comfort. A morphine drip will be started and patient can be transferred to [facility]. Attending in agreement with plan and we will continue to follow. Attending feels will be imminent.
We will follow for support.
[2024-05-16] MEDS: MORPHINE SULFATE 2 MG IV (08:55)
[2024-05-16] MEDS: ATIVAN 1 MG IV ×2 (08:55→12:58)
--- NOTE | 2024-05-16 09:26 | PTCARENOTE ---
Patient has been transitioned to comfort care. mophine standing was given x2. one dose of prn morphine and ativan given, called pharmacy for morphine gtt.
[2024-05-16] MEDS: MORPHINE 100 IV (09:47)
--- NOTE | 2024-05-16 11:02 | CM ---
CM following re: discharge planning.
Discussed in Rounds, reviewed pt's chart, met with pt and family members at bedside.
Pt is a 78 year old male, admitted with primary dx of NSTEMI, LANG. Pt lives with spouse [facility], 5 steps to enter, has supportive family. Pt is independent in all areas [employer].
Per Rounds meeting, pt requested comfort care. CM consult for hospice care noted. Pt preferred hospice. A referral to hospice made. Per MD, pt transitioned to comfort care. contract specialist following.
PCP: Santos Weinberg
Pharmacy: [facility]
D/c plan: comfort care.
CM is available for emotional support
--- NOTE | 2024-05-16 13:45 | PTCARENOTE ---
Patient remains on morphine gtt. Assessing patient's non verbal respiratory distress scale and administering morphine as ordered. support provided to family
[2024-05-16] MEDS: MORPHINE SULFATE 6 MG IV ×3 (14:59→15:42)
--- NOTE | 2024-05-16 16:12 | W.PN.DEATH ---
Pronouncement of
-
Called to see patient to pronounce.
No spontaneous heart tones or respirations noted.
Patient not responsive to verbal stimuli.
Patient is pronounced .
Time of : 16:05
Date of : 05/16/24
Cause of : Cardiogenic shock due to acute ND.
Family Notified: Yes
--- NOTE | 2024-05-16 16:13 | W.DCSUMMARY ---
Discharge Summary
Discharge Data
Date of Admission: 05/16/24
Date of Discharge: 05/16/24
-
Pending Results: No
Hospital Course
Patient is 78 years old male with history of complex CAD, ischemic cardiomyopathy EF of 30 to 35%, chronic left bundle branch block, recent admission to the hospital with heart failure, came into the hospital with excruciating chest pain and found
to be in cardiogenic shock due to acute [place]. He also had LANG related to poor perfusion event. Stat echocardiogram showed decline in EF to 20 to 25%, more pronounced hypokinesis of inferior and inferolateral segments. CT chest abdomen showed
multiple abnormalities but the main issues was cardiac in nature. He was admitted to ICU and cardiology consulted. Cardiology discussed all options to patient and family and understanding high risk procedures without significant benefit patient
and family opted for comfort care. Patient was placed on comfort care measures and he on 05/16/2024 at 16:05. Let his soul rest in peace.
Discharge duration: 35 minutes
Discharge Plan
-
Patient Disposition:
Date/Time
Date/Time: 05/16/24 16:05
Discharge Date and Time
Discharge Date/Time: 05/16/24 16:05
Print Language: [id number]
--- NOTE | 2024-05-16 16:16 | PTCARENOTE ---
Patient with family present at bedside. Notified Dr. Wylie.
== END 2024-05-16 16:05 | disposition expired ==
LOC: ICU 06:09
PROVIDERS: ADMITTING PHYSICIAN Hospitalist; ATTENDING PHYSICIAN Hospitalist; CONSULT PHYSICIAN Internal Medicine; EMERGENCY PHYSICIAN Emergency Medicine; FAMILY PHYSICIAN Family Medicine
DX: I21.4 Non-ST elevation (NSTEMI) myocardial infarction (principal); I50.23 Acute on chronic systolic (congestive) heart failure; I13.0 Hypertensive heart and chronic kidney disease with heart failure and stage 1 through stage 4 chronic kidney disease, or unspecified chronic kidney disease; N17.9 Acute kidney failure, unspecified; E87.20 Acidosis, unspecified; Z51.5 Encounter for palliative care; Z66 Do not resuscitate; E11.42 Type 2 diabetes mellitus with diabetic polyneuropathy; E11.22 Type 2 diabetes mellitus with diabetic chronic kidney disease; E11.51 Type 2 diabetes mellitus with diabetic peripheral angiopathy without gangrene; E78.00 Pure hypercholesterolemia, unspecified; F32.A Depression, unspecified; G89.4 Chronic pain syndrome; I25.10 Atherosclerotic heart disease of native coronary artery without angina pectoris; N18.2 Chronic kidney disease, stage 2 (mild); R57.0 Cardiogenic shock; I44.7 Left bundle-branch block, unspecified; I44.0 Atrioventricular block, first degree; K21.9 Gastro-esophageal reflux disease without esophagitis; Z95.5 Presence of coronary angioplasty implant and graft; Z95.3 Presence of xenogenic heart valve; Z95.1 Presence of aortocoronary bypass graft; Z88.8 Allergy status to other drugs, medicaments and biological substances; Z87.891 Personal history of nicotine dependence; Z79.899 Other long term (current) drug therapy; Z79.4 Long term (current) use of insulin; Z79.02 Long term (current) use of antithrombotics/antiplatelets; Z79.82 Long term (current) use of aspirin; Z79.84 Long term (current) use of oral hypoglycemic drugs
CPT/HCPCS: 51798; 71045; 71250; 74176; 80053; 83605; 84484; 85025; 93005; 93306; 96365; 96366; 96375; 96376; 99291; 99292; Q9950